=== PATIENT | male | born 1940 | race Caucasian/White ===

== ENCOUNTER 2018-05-14 19:20 | Emergency (ER) | payer OTHER ==
--- NOTE | 2018-05-14 19:28 | ER ---
Nurse's Notes [facility] Name: Otto Murguia Age: 77 yrs Sex: Male : 1940 Arrival Date: 05/14/2018 Time: 19:19 Bed 27 Private MD: Diagnosis: Nondisplaced fracture of triquetrum [cuneiform] bone, left wrist Presentation: 05/14 19:20 Presenting complaint: EMS states: pt fell yesterday and went to urgent care, possible tl3 fx to left wrist, when provider examined pt and put pressure on the injury, pt got nauseated and dizzy so they sent him here. Transition of care: urgent care. Onset of symptoms was May 13, 2018 at 15:00. Risk Assessment: Do you want to hurt yourself or someone else? Patient reports no desire to harm self or others. Initial Sepsis Screen: Does the patient meet any 2 criteria? No. Patient's initial sepsis screen is negative. Does the patient have a suspected source of infection? No. Patient's initial sepsis screen is negative. Care prior to arrival: None. 19:20 Method Of Arrival: EMS: [facility] tl3 19:20 Acuity: GARRETT 4 tl3 Triage Assessment: 19:24 General: Appears in no apparent distress. slender, well groomed, well developed, well tl3 nourished, Behavior is calm, cooperative, appropriate for age. Pain: Complains of pain in lateral aspect of left wrist and medial aspect of left wrist. EENT: No signs and/or symptoms were reported regarding the EENT system. Neuro: No deficits noted. Level of Consciousness is awake, alert, obeys commands, Oriented to person, place, time, situation, Appropriate for age. Cardiovascular: Patient's skin is warm and dry. Respiratory: Airway is patent Respiratory effort is even, unlabored, Respiratory pattern is regular, symmetrical. GI: No signs and/or symptoms were reported involving the gastrointestinal system. : No signs and/or symptoms were reported regarding the genitourinary system. Derm: No signs and/or symptoms reported regarding the dermatologic system. Musculoskeletal: Reports pain in lateral aspect of left wrist and medial aspect of left wrist since yesterday. Historical: - Allergies: 19:24 Codeine; tl3 - PMHx: 19:24 Glaucoma; tl3 - PSHx: 19:24 right wrist; Hernia repair; tl3 - Immunization history:: Adult Immunizations up to date. - Social history:: Smoking status: Patient/guardian denies using tobacco, never smoked. - Family history:: not pertinent. - Ebola Screening: : No symptoms or risks identified at this time. - Hospitalizations: : No recent hospitalization is reported. Screenin:27 Abuse screen: Denies threats or abuse. Nutritional screening: No deficits noted. tl3 Tuberculosis screening: No symptoms or risk factors identified. Fall Risk None identified. Assessment: 19:27 Reassessment: No changes from previously documented assessment. tl3 20:12 Reassessment: Patient appears in no apparent distress at this time. No changes from tl3 previously documented assessment. Patient and/or family updated on plan of care and expected duration. Pain level reassessed. Patient is alert, oriented x 3, equal unlabored respirations, skin warm/dry/pink. Vital Signs: 19:24 BP 156 / 123; Pulse 56; Resp 18; Temp 98.6(O); Pulse Ox 100% ; tl3 20:12 BP 145 / 63; Pulse 52; Resp 18; Pulse Ox 99% on R/A; tl3 ED Course: 19:19 Patient arrived in ED. tl3 19:21 Brian Kumar MD is Attending Physician. rn 19:24 Triage completed. tl3 19:24 Arm band placed on right wrist. tl3 19:27 Felton Lorenzo MD is Referral Physician. rn 19:27 Patient has correct armband on for positive identification. Pulse ox on. NIBP on. Warm tl3 blanket given. 19:27 No provider procedures requiring assistance completed. Patient did not have IV access tl3 during this emergency room visit. 19:28 Suzanne Avila, JESSICA is Primary Nurse. tl3 20:12 Orthoglass splint: Volar splint applied on left arm. tl3 Administered Medications: No medications were administered Outcome: 19:28 Discharge ordered by . rn 20:12 Discharged to home ambulatory. tl3 20:12 Condition: stable 20:12 Discharge instructions given to patient, family, Instructed on discharge instructions, follow up and referral plans. Demonstrated understanding of instructions, follow-up care, splint care. 20:14 Patient left the ED. tl3 Signatures: Brian Kumar MD MD rn Lowrey, Tammy, RN RN tl3
--- NOTE | 2018-05-14 19:29 | EDPHYS ---
Physician Documentation [facility] Name: Otto Murguia Age: 77 yrs Sex: Male : 1940 Arrival Date: 05/14/2018 Time: 19:19 Bed 27 Private MD: ED Physician Brian Kumar HPI: 05/14 19:21 This 77 yrs old Male presents to ER via Unassigned with complaints of Wrist rn Pain. 19:21 The patient or guardian reports injury, pain. The complaints affect the left wrist rn diffusely. Onset: The symptoms/episode began/occurred this morning. Modifying factors: The symptoms are alleviated by nothing, the symptoms are aggravated by movement. The patient has not experienced similar symptoms in the past. Reports going up steps this morning, tripped, fell forward with outstretched hand, didn't hurt too bad but worse as day went on, went to urgent care, and when pushing on wrist complained of nausea and dizziness, so urgent care called 911, stable vitals, patient denies symptoms currently other than pain in wrist. Denies preceding chest pain/headache/sob/abd pain prior to fall, states was purely mechanical fall.. Historical: - Allergies: 19:24 Codeine; tl3 - PMHx: 19:24 Glaucoma; tl3 - PSHx: 19:24 right wrist; Hernia repair; tl3 - Immunization history:: Adult Immunizations up to date. - Social history:: Smoking status: Patient/guardian denies using tobacco, never smoked. - Family history:: not pertinent. - Ebola Screening: : No symptoms or risks identified at this time. - Hospitalizations: : No recent hospitalization is reported. ROS: 19:21 Constitutional: Negative for fever, chills, and weight loss, Neck: Negative for injury, rn pain, and swelling, Cardiovascular: Negative for chest pain, palpitations, and edema, Respiratory: Negative for shortness of breath, cough, wheezing, and pleuritic chest pain, Abdomen/GI: Negative for abdominal pain, nausea, vomiting, diarrhea, and constipation, Back: Negative for injury and pain, MS/Extremity: + left wrist pain Skin: Negative for injury, rash, and discoloration, Neuro: Negative for headache, weakness, numbness, tingling, and seizure. Exam: 19:21 Constitutional: This is a well developed, well nourished patient who is awake, alert, rn and in no acute distress. Head/Face: Normocephalic, atraumatic. Neck: Trachea midline. Supple, full range of motion without nuchal rigidity, or vertebral point tenderness. Chest/axilla: Normal chest wall appearance and motion. Nontender with no deformity. Back: No spinal tenderness. No costovertebral tenderness. Full range of motion. MS/ Extremity: Pulses equal, no cyanosis. Neurovascular intact. Painful ROM left wrist with mild swelling, no deformity. Neuro: Awake and alert, GCS 15, oriented to person, place, time, and situation. Cranial nerves II-XII grossly intact. Motor strength 5/5 in all extremities. Sensory grossly intact. Cerebellar exam normal. Normal gait. Vital Signs: 19:24 BP 156 / 123; Pulse 56; Resp 18; Temp 98.6(O); Pulse Ox 100% ; tl3 20:12 BP 145 / 63; Pulse 52; Resp 18; Pulse Ox 99% on R/A; tl3 MDM: 19:21 Patient medically screened. rn 19:21 Differential diagnosis: closed fracture, contusion. Data reviewed: vital signs, nurses rn notes, radiologic studies, plain films, and as a result, I will discharge patient. ED course: Pt comes with imaging from urgent care, read from radiology and images show possible triquetral fracture, will splint and dc home with ortho f/u as patient is asymptomatic. . 05/14 19:21 Order name: Splint - Volar Wrist Splint; Complete Time: 19:47 rn Administered Medications: No medications were administered Disposition: 05/14/18 19:28 Discharged to Home. Impression: Nondisplaced fracture of triquetrum [cuneiform] bone, left wrist. - Condition is Stable. - Discharge Instructions: Wrist Fracture Treated With Immobilization. - Medication Reconciliation Form, Thank You Letter, Antibiotic Education, Prescription Opioid Use form. - Follow up: Felton Lorenzo MD; When: 2 - 3 days; Reason: Recheck today's complaints, Re-evaluation by your physician. - Problem is new. - Symptoms have improved. Signatures: Brian Kumar MD MD rn Lowrey, Tammy, RN RN tl3 Corrections: (The following items were deleted from the chart) 20:14 19:28 05/14/2018 19:28 Discharged to Home. Impression: Nondisplaced fracture of tl3 triquetrum [cuneiform] bone, left wrist. Condition is Stable. Forms are Medication Reconciliation Form, Thank You Letter, Antibiotic Education, Prescription Opioid Use. Follow up: Dr. Felton Lorenzo; When: 2 - 3 days; Reason: Recheck today's complaints, Re-evaluation by your physician. Problem is new. Symptoms have improved. rn
== END 2018-05-14 20:14 | disposition home or self-care (01) ==
LOC: ER 19:20
DX: S62.115A Nondisplaced fracture of triquetrum [cuneiform] bone, left wrist, initial encounter for closed fracture (principal); W10.9XXA Fall (on) (from) unspecified stairs and steps, initial encounter; Y93.89 Activity, other specified; Y92.9 Unspecified place or not applicable; Z88.5 Allergy status to narcotic agent
CPT/HCPCS: 99283

== ENCOUNTER 2021-02-13 13:21 | Inpatient (IN) | payer OTHER ==
--- OUTSIDE RECORDS SUMMARY | 2021-02-13 13:23 | XMS REPORT | Continuity of Care Document ---
:1940 Author Organization [facility] t Address [address] [place] [address] Dr. Jacobsen [address] [place] [id number] Care Team Providers Name Role Phone Unavailable Unavailable Unavailable Problems This patient has no known problems. Allergies, Adverse Reactions, Alerts This patient has no known allergies or adverse reactions. Medications This patient has no known medications. Procedures This patient has no known procedures. Results This patient has no known results.
--- NOTE | 2021-02-13 14:16 | RAD REPORT ---
EXAM DESCRIPTION: RAD - Chest Pa And Lat (2 Views) - 02/13/2021 2:05 pm CLINICAL HISTORY: covid +;Cough Chest pain. COMPARISON: Chest Pa And Lat (2 Views) dated 05/02/2020; Chest Pa And Lat (2 Views) dated 12/15/2018; Chest Pa And Lat (2 Views) dated 08/15/2017; Chest Single View dated 03/03/2017 FINDINGS: Mild interstitial lung opacities are present greatest in both lower lobes most compatible with viral infection/ bronchitis. The heart is normal in size. No displaced fractures.
[2021-02-13 15:46] LABS: Protime INR 1.11
[2021-02-13 15:55] LABS: Absolute Lymphocytes (CBC) 0.6 K/uL (0.7-4.9); Basophils % 0.1 % (0-1.3); Hematocrit 41.1 % (39.6-49.0); Lymphocytes % 7.2 % (15.3-44.8); MPV 8.6 fL (7.6-11.3); RBC Red Blood Cell Count 4.73 M/uL (4.33-5.43)
[2021-02-13 16:06] LABS: Urine Blood Trace-lysed (Negative); Urine Glucose Negative (Negative); Urine Protein Negative (Negative); Urine Specific Gravity 1.015 (1.005-1.030)
[2021-02-13 16:24] LABS: Arterial Blood Carboxyhemoglob 1.2 % (0-1.5); Blood O2 Saturation 89.9 % (92-98.5)
--- NOTE | 2021-02-13 17:09 | ER ---
Nurse's Notes [facility] Name: Otto Murguia Age: 80 yrs Sex: Male : 1940 Arrival Date: 02/13/2021 Time: 13:28 Bed 23 Private MD: Diagnosis: Hypoxemia;Pneumonia due to SARS-associated coronavirus;Weakness;Syncope Near;Bradycardia, unspecified;Dementia in other diseases classified elsewhere without behavioral disturbance Presentation: 02/13 13:41 Chief complaint: Patient states: COVID + a week ago. SOB is getting worse. is ss concerned because his oxygen had been in the 80's at home. Coronavirus screen: Client presents with at least one sign or symptom that may indicate coronavirus-19. Ebola Screen: Patient denies exposure to infectious person. Patient denies travel to an Ebola-affected area in the 21 days before illness onset. Initial Sepsis Screen: Does the patient meet any 2 criteria? No. Patient's initial sepsis screen is negative. Does the patient have a suspected source of infection? No. Patient's initial sepsis screen is negative. Risk Assessment: Do you want to hurt yourself or someone else? Patient reports no desire to harm self or others. Onset of symptoms was February 06, 2021. 13:41 Method Of Arrival: Ambulatory ss 13:41 Acuity: GARRETT 2 ss Triage Assessment: 02/14 14:45 General: Appears. ch5 16:54 General: Behavior is calm, cooperative. Respiratory: Reports shortness of breath on ch5 exertion. Historical: - Allergies: 02/13 13:42 Codeine; ss 13:42 PENICILLINS; ss - PMHx: 13:42 Glaucoma; ss 13:42 Dementia; ss - Immunization history:: Client reports receiving the To \\T\\ To single-dose vaccine. - Social history:: Smoking status: Patient denies any tobacco usage or history of. Screenin:33 Abuse screen: Denies threats or abuse. Denies injuries from another. Nutritional kg screening: No deficits noted. Tuberculosis screening: No symptoms or risk factors identified. Fall Risk None identified. Assessment: 16:09 Respiratory: Airway is patent Respiratory effort is even, unlabored, relaxed. kg 16:10 Reassessment: Updated his on status. Will continue to monitor. . kg 18:20 Reassessment: Pt stood at bedside to urinate. O2 Sat decreased to 83% on 2 L NC. Denies ch5 dizziness. Once in bed O2 recovered to 90% on 2 L NC. Pain: Denies pain. 18:36 Cardiovascular: Denies chest pain, lightheadedness. Respiratory: Corace with cough. ch5 20:19 Neuro: No deficits noted. Cardiovascular: No deficits noted. GI: No deficits noted. : kg No deficits noted. EENT: No deficits noted. Derm: No deficits noted. 02/14 16:51 Cardiovascular: Rhythm is sinus rhythm. ch5 20:33 General: Appears uncomfortable, malnourished, Behavior is calm, cooperative. Pain:. sh9 Neuro: Level of Consciousness is alert, Oriented to person, place, situation, Weakness. Vital Signs: 02/13 13:42 BP 116 / 68; Pulse 64; Resp 24; Temp 97.8(TE); Pulse Ox 93% on R/A; Weight 72.57 kg; ss 16:41 BP 142 / 56; Pulse 66; Resp 20; Pulse Ox 94% on R/A; Pain 0/10; ch5 18:18 BP 165 / 58; Pulse 78; Resp 24; Pulse Ox 90% on 2 lpm NC; Pain 0/10; ch5 02/14 16:55 BP 144 / 61; Pulse 60; Resp 20; Pulse Ox 99% on 2 lpm NC; Pain 0/10; ch5 20:32 BP 105 / 43; Pulse 98; Resp 22; Temp 95.8; Pulse Ox 96% on 2 lpm NC; sh9 ED Course: 02/13 13:28 Patient arrived in ED. cl3 13:42 Triage completed. ss 13:42 Arm band placed on right wrist. ss 14:05 Chest Pa And Lat (2 Views) In Process Unspecified. EDMS 14:59 Miguelangel Gorman MD is Attending Physician. mariluz 15:10 Inserted saline lock: 20 gauge in left wrist, using aseptic technique. ,using aseptic kg technique. BY Prashant LOPEZ Blood collected. 15:15 Juanita Vizcaino, JESSICA is Primary Nurse. kg 15:15 Basic Metabolic Panel Sent. kg 15:33 Patient has correct armband on for positive identification. kg 15:37 Ferritin Sent. kg 15:37 CRP Sent. kg 15:38 Basic Metabolic Panel Sent. kg 15:38 CBC with Diff Sent. kg 15:38 LFT's Sent. kg 15:38 Magnesium Sent. kg 15:38 NT PRO-BNP Sent. kg 15:38 PT-INR Sent. kg 15:38 Troponin (emerg Dept Use Only) Sent. kg 17:07 Mitchell Hall MD is Hospitalizing Provider. mariluz 17:11 Blood Culture Adult (2) Sent. ch5 17:13 CT Head Brain wo Cont Sent. ch5 17:18 CT Head Brain wo Cont In Process Unspecified. EDMS 17:20 CT Chest For PE Angio In Process Unspecified. EDMS 18:36 Report given to Juanita. 5 19:06 COVID-19 : Document "Date of Symptom Onset" if Symptomatic. Sent. kg 02/14 16:50 CORONAVIRUS Sent. ch5 16:52 No provider procedures requiring assistance completed. 5 Administered Medications: 02/13 17:06 CANCELLED (Duplicate Order): Lovenox (enoxaparin) 1 mg/kg Sub-Q once mariluz 17:20 Drug: Zithromax (azithromycin) 500 mg Route: PO; 5 19:07 Follow up: Response: No adverse reaction kg 17:27 Drug: Aspirin Chewable Tablet 162 mg Route: PO; 5 19:07 Follow up: Response: No adverse reaction kg 17:30 Drug: SOLU-Medrol (methylPrednisoLONE) 125 mg Route: IVP; Site: right wrist; 5 19:06 Follow up: Response: No adverse reaction kg 17:30 Drug: Albuterol HFA Inhaler 4 puffs Route: Inhalation; 5 17:36 Drug: Rocephin (cefTRIAXone) 1 grams Route: IV; Rate: per protocol; Site: left wrist; 5 17:45 Follow up: IV Status: Completed infusion; IV Intake: 10ml kg 17:40 Drug: Pepcid (famotidine) 20 mg Route: IVP; Site: left wrist; [facility] 19:08 Follow up: Response: No adverse reaction kg 18:10 Drug: Lovenox (enoxaparin) 1 mg/kg {Note: 72mg given in back of R upper arm.} Route: ch5 Sub-Q; Site: left upper arm; 19:06 Follow up: Response: No adverse reaction kg 18:10 Drug: Lovenox (enoxaparin) 1 mg/kg {Note: Given in R upper arm not L.} Route: Sub-Q; ch5 Site: right upper arm; Intake: 17:45 IV: 10ml; Total: 10ml. kg Outcome: 17:08 Decision to Hospitalize by Provider. mariluz 02/15 08:24 Patient left the ED. iw Signatures: Dispatcher [employer] EDMiguelangel Bradford MD MD cha Williams, Irene, RN RN Summer Ragland RN RN Delia Steel cl3 Juanita Vizcaino RN RN kg Carlene Argueta RN RN sh9 Prashant Franco RN RN ch5 Corrections: (The following items were deleted from the chart) 02/13 18:38 18:20 Cardiovascular: Denies chest pain, lightheadedness, Rhythm is ch5 ch5
--- NOTE | 2021-02-13 17:09 | EDPHYS ---
Physician Documentation [facility] Name: Otto Murguia Age: 80 yrs Sex: Male : 1940 Arrival Date: 02/13/2021 Time: 13:28 Bed 23 Private MD: ED Physician Miguelangel Gorman HPI: 02/13 17:00 This 80 yrs old Male presents to ER via Ambulatory with complaints of mariluz Shortness Of Breath, Covid +. 17:00 The patient has shortness of breath at rest, with light activity. Onset: The mariluz symptoms/episode began/occurred 3 day(s) ago. Duration: The symptoms are continuous, and are steadily getting worse. The patient's shortness of breath is aggravated by coughing, supine position, is alleviated by rest, sitting up, application of supplemental oxygen. Associated signs and symptoms: Pertinent positives: non-productive cough, dizziness. Severity of symptoms: in the emergency department the symptoms have resolved and did so just prior to arrival. The patient has not experienced similar symptoms in the past, but friend has similar symptoms. Historical: - Allergies: 13:42 Codeine; ss 13:42 PENICILLINS; ss - PMHx: 13:42 Glaucoma; ss 13:42 Dementia; ss - Immunization history:: Client reports receiving the To \\T\\ To single-dose vaccine. - Social history:: Smoking status: Patient denies any tobacco usage or history of. ROS: 17:01 Eyes: Negative for injury, pain, redness, and discharge, ENT: Negative for injury, mariluz pain, and discharge, Neck: Negative for injury, pain, and swelling, Cardiovascular: Negative for chest pain, palpitations, and edema, Abdomen/GI: Negative for abdominal pain, nausea, vomiting, diarrhea, and constipation, Back: Negative for injury and pain, : Negative for injury, bleeding, discharge, and swelling, MS/Extremity: Negative for injury and deformity, Skin: Negative for injury, rash, and discoloration, Psych: Negative for depression, anxiety, suicide ideation, homicidal ideation, and hallucinations, Allergy/Immunology: Negative for hives, rash, and allergies, Endocrine: Negative for neck swelling, polydipsia, polyuria, polyphagia, and marked weight changes, Hematologic/Lymphatic: Negative for swollen nodes, abnormal bleeding, and unusual bruising. 17:01 Constitutional: Positive for body aches, chills, fatigue, malaise. 17:01 Respiratory: Positive for cough, shortness of breath, at rest. 17:01 Neuro: Positive for syncope, weakness. Exam: 17:01 Constitutional: This is a well developed, well nourished patient who is awake, alert, mariluz and in no acute distress. Head/Face: Normocephalic, atraumatic. Eyes: Pupils equal round and reactive to light, extra-ocular motions intact. Lids and lashes normal. Conjunctiva and sclera are non-icteric and not injected. Cornea within normal limits. Periorbital areas with no swelling, redness, or edema. ENT: Nares patent. No nasal discharge, no septal abnormalities noted. Tympanic membranes are normal and external auditory canals are clear. Oropharynx with no redness, swelling, or masses, exudates, or evidence of obstruction, uvula midline. Mucous membranes moist. Neck: Trachea midline, no thyromegaly or masses palpated, and no cervical lymphadenopathy. Supple, full range of motion without nuchal rigidity, or vertebral point tenderness. No Meningismus. Chest/axilla: Normal chest wall appearance and motion. Nontender with no deformity. No lesions are appreciated. Cardiovascular: Regular rate and rhythm with a normal S1 and S2. No gallops, murmurs, or rubs. Normal PMI, no JVD. No pulse deficits. Abdomen/GI: Soft, non-tender, with normal bowel sounds. No distension or tympany. No guarding or rebound. No evidence of tenderness throughout. Back: No spinal tenderness. No costovertebral tenderness. Full range of motion. Male : Normal genitalia with no discharge or lesions. Skin: Warm, dry with normal turgor. Normal color with no rashes, no lesions, and no evidence of cellulitis. MS/ Extremity: Pulses equal, no cyanosis. Neurovascular intact. Full, normal range of motion. Psych: Awake, alert, with orientation to person, place and time. Behavior, mood, and affect are within normal limits. 17:01 ECG was reviewed by the Attending Physician. 17:01 Respiratory: mild respiratory distress is noted, Breath sounds: decreased breath sounds, that are mild, that are moderate, are heard in the left posterior lower lobe, right posterior middle lobe and right posterior lower lobe, Respiratory rate: 66 Vital Signs: 13:42 BP 116 / 68; Pulse 64; Resp 24; Temp 97.8(TE); Pulse Ox 93% on R/A; Weight 72.57 kg; ss 16:41 BP 142 / 56; Pulse 66; Resp 20; Pulse Ox 94% on R/A; Pain 0/10; ch5 18:18 BP 165 / 58; Pulse 78; Resp 24; Pulse Ox 90% on 2 lpm NC; Pain 0/10; ch5 02/14 16:55 BP 144 / 61; Pulse 60; Resp 20; Pulse Ox 99% on 2 lpm NC; Pain 0/10; ch5 20:32 BP 105 / 43; Pulse 98; Resp 22; Temp 95.8; Pulse Ox 96% on 2 lpm NC; sh9 MDM: 02/13 14:59 Patient medically screened. [facility] 17:03 Differential diagnosis: asthma, Bronchitis CHF exacerbation, pneumonia, pulmonary mariluz edema, reactive airway disease, Sepsis. Antibiotic administration: Rocephin and Zithromax given. Differential Diagnosis sepsis, flu. Differential Diagnosis: cardiac arrhythmia, idiopathic syncope, vasovagal episode. The patient's Wells Deep Vein Thrombosis Score was calculated as follows: Total Score: 0-2 Pts- Low Risk. The patient's pulmonary embolism risk score was calculated as follows: Total Score: 0-2 points. This patient was found to be at low risk for a pulmonary embolism by using the Well's assessment criteria. Immunization status: Pneumococcal vaccine: Influenza vaccine: Data reviewed: vital signs, nurses notes, lab test result(s), EKG, radiologic studies, CT scan, plain films. Data interpreted: vehicle monitor technician: rate is 66 beats/min, rhythm is regular. Test interpretation: by ED physician or midlevel provider: ECG, plain radiologic studies. Counseling: I had a detailed discussion with the patient and/or guardian regarding: the historical points, exam findings, and any diagnostic results supporting the discharge/admit diagnosis, lab results, the need for further work-up and treatment in the hospital. 02/13 15:03 Order name: Basic Metabolic Panel [facility] 02/13 15: Order name: CBC with Diff; Complete Time: 16:55 [facility] 02/13 15:03 Order name: LFT's [facility] 02/13 15: Order name: Magnesium [facility] 02/13 15: Order name: NT PRO-BNP [facility] 02/13 15:03 Order name: PT-INR; Complete Time: 16:55 [facility] 02/13 15:03 Order name: Troponin (emerg Dept Use Only) [facility] 02/13 15:04 Order name: Blood Culture Adult (2) [facility] 02/13 15:04 Order name: CRP [facility] 02/13 15:04 Order name: Ferritin [facility] 02/13 15:04 Order name: Basic Metabolic Panel [facility] 02/13 15:18 Order name: ABG: on ra [facility] 02/13 16:06 Order name: Urine Dipstick-Ancillary; Complete Time: 16:55 [facility] 02/13 18:45 Order name: COVID-19 : Document "Date of Symptom Onset" if Symptomatic. 02/13 14:04 Order name: Chest Pa And Lat (2 Views); Complete Time: 16:55 [facility] 02/13 15:04 Order name: CT Chest For PE Angio [facility] 02/13 17:06 Order name: CT Head Brain wo Cont [facility] 02/13 19:12 Order name: CORONAVIRUS [facility] 02/13 20:11 Order name: SARS-COV-2 RT PCR [facility] 02/14 00:39 Order name: Troponin I [facility] 02/14 03:01 Order name: CBC with Automated Diff [facility] 02/14 03:02 Order name: Troponin I [facility] 02/14 03:03 Order name: Basic Metabolic Panel [facility] 02/14 03:03 Order name: NT PRO-BNP [facility] 02/14 03:37 Order name: Manual Differential [facility] 02/14 03:49 Order name: CREATININE WHOLE BLOOD [facility] 02/15 04:46 Order name: C-Reactive Protein [facility] 02/15 08:08 Order name: Glucose, Ancillary Testing [facility] 02/13 15:03 Order name: EKG; Complete Time: 15:04 [facility] 02/13 15:04 Order name: Cardiac monitoring; Complete Time: 15:15 [facility] 02/13 15:04 Order name: EKG - Nurse/Tech; Complete Time: 15:15 [facility] 02/13 15:04 Order name: IV Saline Lock; Complete Time: 15:15 [facility] 02/13 15:04 Order name: Labs collected and sent; Complete Time: 15:15 [facility] 02/13 15:04 Order name: O2 Per Protocol; Complete Time: 15:15 [facility] 02/13 15:04 Order name: O2 Sat Monitoring; Complete Time: 15:15 [facility] 02/13 15:04 Order name: Urine Dipstick-Ancillary (obtain specimen); Complete Time: 15:48 [facility] 02/13 17:18 Order name: CONS Physician Consult; Complete Time: 16:51 EDMS EC:01 Rate is 59 beats/min. Rhythm is regular. QRS [place] is Normal. [place] interval is normal. QRS mariluz interval is normal. QT interval is normal. No Q waves. T waves are Normal. No ST changes noted. Clinical impression: Sinus bradycardia. Interpreted by me. Reviewed by me. Administered Medications: 17:06 CANCELLED (Duplicate Order): Lovenox (enoxaparin) 1 mg/kg Sub-Q once mariluz 17:20 Drug: Zithromax (azithromycin) 500 mg Route: PO; 5 19:07 Follow up: Response: No adverse reaction kg 17:27 Drug: Aspirin Chewable Tablet 162 mg Route: PO; ch5 19:07 Follow up: Response: No adverse reaction kg 17:30 Drug: SOLU-Medrol (methylPrednisoLONE) 125 mg Route: IVP; Site: right wrist; 5 19:06 Follow up: Response: No adverse reaction kg 17:30 Drug: Albuterol HFA Inhaler 4 puffs Route: Inhalation; ch5 17:36 Drug: Rocephin (cefTRIAXone) 1 grams Route: IV; Rate: per protocol; Site: left wrist; ch5 17:45 Follow up: IV Status: Completed infusion; IV Intake: 10ml kg 17:40 Drug: Pepcid (famotidine) 20 mg Route: IVP; Site: left wrist; 5 19:08 Follow up: Response: No adverse reaction kg 18:10 Drug: Lovenox (enoxaparin) 1 mg/kg {Note: 72mg given in back of R upper arm.} Route: ch5 Sub-Q; Site: left upper arm; 19:06 Follow up: Response: No adverse reaction kg 18:10 Drug: Lovenox (enoxaparin) 1 mg/kg {Note: Given in R upper arm not L.} Route: Sub-Q; ch5 Site: right upper arm; Disposition Summary: 02/13/21 17:08 Hospitalization Ordered Hospitalization Status: Inpatient Admission mariluz Provider: Mitchell Hall mariluz Condition: Stable mariluz Problem: new mariluz Symptoms: have improved mariluz Bed/Room Type: Standard mariluz Location: Telemetry/MedSurg (Inpatient)(02/15/21 06:37) tl1 Room Assignment: 426(02/15/21 06:37) tl1 Diagnosis - Hypoxemia mariluz - Pneumonia due to SARS-associated coronavirus mariluz - Weakness mariluz - Syncope Near mariluz - Bradycardia, unspecified mariluz - Dementia in other diseases classified elsewhere without behavioral disturbance mariluz Forms: - Medication Reconciliation Form mariluz - SBAR form mariluz Signatures: Dispatcher [employer] EDMS Miguelangel Gorman MD MD cha Smirch, Shelby, RN RN ss Kell Frias RN RN tl1 Prashant Franco RN RN ch5 Juanita Vizcaino RN kg Corrections: (The following items were deleted from the chart) 14:04 13:44 Chest Single View+RAD.RAD.BRZ ordered. EDMS EDMS 17:06 17:00 Lovenox (enoxaparin) 1 mg/kg Sub-Q once ordered. mariluz mariluz 19:41 17:08 Telemetry/MedSurg (Inpatient) mariluz tl1 19:41 17:08 mariluz tl1 02/15 06:37 02/13 19:41 BR ER HOLD tl1 tl1 02/15 06:37 02/13 19:41 ERHOLD- tl1 tl1
--- NOTE | 2021-02-13 17:30 | RAD REPORT ---
EXAM DESCRIPTION: CT - Head Brain Wo Cont - 02/13/2021 5:18 pm CLINICAL HISTORY: SYNCOPE Headache, drowsiness COMPARISON: MAXILLOFACIAL W O CONTRAST dated 05/08/2009; HEAD BRAIN W O CONTRAST dated 05/08/2009 TECHNIQUE: All CT scans are performed using dose optimization technique as appropriate and may inclu de automated exposure control or mA/KV adjustment according to patient size. FINDINGS: No intracranial hemorrhage, hydrocephalus or extra-axial fluid collection.Moderate general ized brain atrophy is present with mild periventricular and deep white matter chronic microvascular i schemic changes.No areas of brain edema or evidence of midline shift. The paranasal sinuses and mastoids are clear. The calvarium is intact. IMPRESSION: No acute intracranial abnormality.
--- NOTE | 2021-02-13 17:36 | RAD REPORT ---
EXAM DESCRIPTION: CT - Chest For Pe Angio - 02/13/2021 5:20 pm CLINICAL HISTORY: Chest pain. Chest pain;Dyspnea COMPARISON: Chest For Pe Angio dated 03/03/2017 TECHNIQUE: CT angiogram of the pulmonary arteries was performed with MIP. All CT scans are performed using dose optimization technique as appropriate and may include automated exposure control or mA/KV adjustment according to patient size. FINDINGS: No evidence of pulmonary thromboembolism. No acute aortic finding demonstrated. Moderate irregular plaquing is seen along the descending thorac ic aorta laterally. There is quite extensive bilateral pulmonary opacities present predominately ground-glass pancreatiti s in the periphery of both lungs both lower lobes. Air cyst is seen along the left medial lung base measuring 4 cm containing some trace amount of fluid . Curvilinear air cyst is present in the medial right lung base as well measuring 25 mm. No significant pericardial or pleural fluid. No concerning bony finding. IMPRESSION: No evidence of pulmonary thromboembolism. Extensive ground-glass lung opacities are present bilaterally most likely representing COVID-19 infec tion.
[2021-02-13] MEDS ORDERED: ASPIRIN EC 81 MG TAB PO ONE (17:47)
[2021-02-13] MEDS ORDERED: METHYLPREDNISOLONE 125 MG INJ ONE (17:47)
[2021-02-13] MEDS ORDERED: FAMOTIDINE 20 MG/2 ML VIAL IV ONE (17:48)
[2021-02-13] MEDS ORDERED: CEFTRIAXONE 1000 MG/VIAL ONE (17:48)
[2021-02-13] MEDS ORDERED: ALBUTEROL INHALER 60 PUFF/8 GM IH ONE (17:49)
[2021-02-13] MEDS ORDERED: AZITHROMYCIN 250 MG TAB ONE (17:55)
[2021-02-13 18:20] LABS: ALT/SGPT 28 U/L (12-78); AST/SGOT 30 U/L (15-37); Albumin 2.4 g/dL (3.4-5.0); Alkaline Phosphatase 50 U/L (45-117); BUN Blood Urea Nitrogen 14 mg/dL (7-18); Bicarbonate 27 mmol/L (21-32); Bilirubin Direct 0.2 mg/dL (0-0.2); Bilirubin Total 0.4 mg/dL (0.2-1.0); Ferritin 605.2 ng/mL (26-388); Glucose Level 112 mg/dL (74-106); Magnesium 2.2 mg/dL (1.8-2.4); NT PRO-BNP 320 pg/mL (<450); Protein, Total 6.5 g/dL (6.4-8.2); Sodium Level 133 mmol/L (136-145); Troponin (Emerg Dept Use Only) < 0.02 ng/mL (0.0-0.045)
[2021-02-13] MEDS ORDERED: ENOXAPARIN 80 MG/0.8 ML SQ ONE (18:27)
[2021-02-13 23:35] VITALS: BMI 23.6
[2021-02-13] MEDS ORDERED: CEFTRIAXONE 1 GM/NS 50 ML 1 GM/50 ML BAG IV SCH (23:39)
[2021-02-13] MEDS ORDERED: ALBUTEROL 2.5 MG/3 ML NEB SOL NEB PRN (23:39)
[2021-02-13] MEDS ORDERED: IPRATROPIUM BROM 0.5MG/2.5ML NEB PRN (23:39)
[2021-02-14] MEDS ORDERED: METHYLPREDNISOLONE 125 MG INJ IV SCH
[2021-02-14 02:58] LABS: Absolute Lymphocytes (CBC) 0.2 K/uL (0.7-4.9); Basophils % 0.2 % (0-1.3); Hematocrit 36.7 % (39.6-49.0); Lymphocytes % 3.4 % (15.3-44.8); MPV 8.6 fL (7.6-11.3); RBC Red Blood Cell Count 4.23 M/uL (4.33-5.43)
[2021-02-14 03:03] LABS: Potassium 4.2 mmol/L (3.5-5.1)
[2021-02-14 03:37] LABS: Blood Morphology Comment NOT SEEN (NOT SEEN); Platelet Estimate ADEQ
[2021-02-14] MEDS ORDERED: METHYLPREDNISOLONE 40 MG INJ ONE ×3 (07:16→21:47)
--- NOTE | 2021-02-14 08:56 | HP ---
Date of Admission: 02/13/2021 Chief Complaint: Cough, shortness of breath, fainting type of feeling. History Of Present Illness: This is a 80-year-old male patient who [facility] week on 02/07/2021, along with his with 2 days history of both and having cough, congestion, headache, body ache, fever, and diarrhea type of symptoms. They both were diagnosed as having COVID- 19 infection and both were given methylprednisolone, Zithromax, and cough medication. The patient also went to [facility] and had monoclonal antibody treatment after he got diagnosed. He completed all his medications as prescribed and today he was brought into the emergency room with these complaints of fainting type of feeling, cough, congestion, shortness of breath. He is not coughing up any mucus. After he was evaluated in the ER with COVID-19 pneumonia. I saw him in the emergency room and I also communicated with his who is also a patient today in the emergency room. Review of Systems: Constitutional: Generalized weakness. Respiratory: As mentioned above. All other systems reviewed and negative. Allergies: TO SULFA CAUSING CHILLS AND TERRAMYCIN CAUSING RASH. Medications: 1. Aspirin 81 mg daily. 2. Atorvastatin 20 mg p.o. daily at bedtime. 3. Lumigan eye drops. 4. Donepezil 10 mg daily. 5. Lisinopril 10 mg by mouth 2 times a day. 6. Memantine 10 mg 2 times a day. 7. Metoprolol succinate 25 mg daily in the morning. 8. Requip 0.25 mg daily at bedtime. Past Surgical History: Cataract surgery, appendectomy, arthroscopic knee surgery, and surgery for wrist fracture. Past Medical History: Significant for Alzheimer disease, hypertension, type 2 diabetes mellitus, mixed hyperlipidemia, diverticulosis, benign prostatic hypertrophy, and history of ITP. Family History: Significant for father of stomach cancer, had diabetes heart disease, and hypertension. Mother , had osteoporosis and osteoarthritis. Brother is healthy. Social History: Prior history of smoking, not at present time. Use of alcohol occasional. Physical Examination: Vital Signs: When he came into emergency room, blood pressure 116/68, pulse 64, respiratory rate 24, temperature 97.8, oxygen saturation 93%, weight 72.57 kg. General: Awake, alert, oriented, not in distress. HEENT: Head atraumatic, normocephalic. Conjunctivae nonerythematous. Sclerae white. Mouth, no thrush or edema noted. Ears/Nose, no mass, lesion, discharge noted. Neck: Supple. No JVD, lymph nodes, bruit, thyromegaly noted. Lungs: Some rales present in both lungs. Not using any accessory muscles of respiration. Heart: Normal heart sounds, no murmur or gallop. Abdomen: Soft, bowel sounds normal. No guarding, rigidity, tenderness, mass, hepatosplenomegaly, distention, or bruit noted. Extremities: No leg edema. No calf tenderness. Skin: No rash, ulcer, cellulitis. Lymphatics: No lymph node enlargement in neck, supraclavicular, infraclavicular region. Neuro: No focal neurological deficit. Chest: Unremarkable. External Genitalia: Deferred. Rectal: Deferred. Laboratory Data: White count 7.9, hemoglobin 13.8. INR 1.11. Blood gas; pH 7.46, pCO2 34.1, pO2 59, saturation 99.9. Sodium 133, potassium 4, chloride 102, bicarb 27, BUN 14, creatinine 0.82, glucose 112, ferritin 605. Liver function tests unremarkable. Troponin less than 0.02. CRP 64.3. Urinalysis was unremarkable. CAT scan of the chest was negative for pulmonary embolism, but it showed extensive ground-glass lung opacity in both lungs. Chest x-ray also shows bilateral interstitial lung opacities. CAT scan of the brain was negative for any acute intracranial changes. Impression: 1. COVID-19 infection. 2. COVID-19 pneumonia. 3. Acute respiratory failure with hypoxia. 4. Alzheimer disease. 5. Hypertension. 6. Type 2 diabetes mellitus. 7. Mixed hyperlipidemia. 8. Diverticulosis. 9. Benign prostatic hypertrophy. Plan: We will go ahead and admit the patient to hospital for further evaluation and management of this problem. Patient is appropriate for inpatient and is expected to spend 2 midnights in the hospital. We will go ahead and consult Dr. Wilson from Pulmonary service. We will continue home medications per order, oxygen replacement therapy will be given. We will go ahead and give him IV Solu-Medrol, manage fingerstick blood sugar with sliding scale insulin for diabetes control, and give anticoagulation therapy per order. Details and plan of treatment discussed with the patient and patient's . JANICE/MYRNA Voice ID: [id number] MTDD
[2021-02-14] MEDS ORDERED: AZITHROMYCIN IV 250 MG in NA CHLORIDE 0.9% 250 ML IVPB SCH ×4 (09:00)
[2021-02-14] MEDS ORDERED: CEFTRIAXONE/SWI 1gm 1 GM/10 ML SYR IV SCH (09:00)
[2021-02-14] MEDS: MEMANTINE HCL 10 MG TABLET PO SCH ×2 (09:00→21:00)
[2021-02-14] MEDS: METOPROLOL XL 25 MG TAB PO SCH (09:45)
[2021-02-14] MEDS: FAMOTIDINE 20 MG TAB PO SCH ×2 (11:00→21:00)
[2021-02-14] MEDS: lisinopriL 5 MG TAB PO SCH ×2 (11:00→21:00)
[2021-02-14] MEDS: APIXABAN 5 MG TABLET PO SCH ×2 (11:00→21:00)
[2021-02-14] MEDS: METHYLPREDNISOLONE 125 MG INJ IV SCH ×2 (11:00→17:00)
[2021-02-14] MEDS ORDERED: APIXABAN 5 MG TABLET ONE ×2 (11:39→21:47)
[2021-02-14] MEDS ORDERED: FAMOTIDINE 20 MG TAB ONE ×2 (11:39→21:48)
[2021-02-14] MEDS ORDERED: lisinopriL 5 MG TAB ONE ×2 (11:41→21:49)
--- NOTE | 2021-02-14 13:07 | P.CNS ---
Date of Consult: 02/14/21 Reason for Consult: Respiratory failure from coronavirus Chief Complaint: Shortness of breath History of Present Illness: Patient is 80 years of age with cough congestion headache body fever diarrhea was diagnosed with coronavirus infection treated with methyl prednisone Dosepak Zithromax and cough medication he completed his antibiotic treatment came in feeling worse. With severe pneumonia Allergies codeine Allergy (Verified 03/04/17 00:27) Itching/Hives/Rash Home Medications: Colchicine 0.6 mg PO BID #20 tablet 03/04/17 - Past Medical/Surgical History Diabetic: Yes -: diet controlled diabetes -: glaucoma -: macular degeneration -: minh cataract sx -: R wrist -: skin ca removed from forehead - Social History Smoking Status: Never smoker Alcohol use: Yes CD- Drugs: No Review of Systems General: Weakness Respiratory: Shortness of Breath Physical Examination Temp Pulse Resp BP Pulse Ox 98.8 F 65 20 125/88 96 02/14/21 08:00 02/14/21 11:00 02/14/21 08:00 02/14/21 11:00 02/14/21 04:00 General: Alert, Oriented x3, Cooperative Laboratory Data (last 24 hrs) 02/13/21 15:27: PT 12.8 H, INR 1.11 02/13/21 15:27: WBC 7.90, Hgb 13.8, Hct 41.1, Plt Count 220 02/13/21 00:00: Troponin I < 0.02 - Problems (1) Pneumonia due to coronavirus disease 2019 Current Visit: Yes Status: Acute Plan: Patient is 80 years of age recently diagnosed with coronavirus infection completed antibiotic treatment came in worse he has diffuse bilateral pneumonia labs reviewed CRP elevated CT scan reviewed vital signs are stable continue with steroids for now if his condition deteriorates CRP is more than 75 we will start him on Barcitinib at present is only on 3 L of nasal cannula oxygen with a sat of 97% daily CRPs antibiotics discontinued
[2021-02-14] MEDS: BIMATOPROST OPHTH DROPS/2.5 ML BTL OPTH SCH (21:00)
[2021-02-14] MEDS: ROPINIROLE HCL 0.25 MG TAB PO SCH (21:00)
[2021-02-14] MEDS: DONEPEZIL HCL 5 MG TAB PO SCH (21:00)
[2021-02-14] MEDS ORDERED: METOPROLOL XL 50 MG TAB PO ONE (21:49)
[2021-02-15] MEDS: METHYLPREDNISOLONE 125 MG INJ IV SCH ×3 (01:00→16:47)
[2021-02-15] MEDS ORDERED: D50W 25 GM/50 ML SYRINGE IV PRN (05:04)
[2021-02-15] MEDS ORDERED: GLUCAGON 1 MG/VIAL IM PRN (05:04)
[2021-02-15] MEDS: INSULIN -REGULAR HUMAN 50 UNIT/0.5 ML ML SQ SCH ×4 (07:30→21:00)
--- NOTE | 2021-02-15 07:57 | PN ---
Date of Progress Note: 02/14/2021 Subjective: The patient was seen this morning for followup. His was with him. No new complain ts or problems reported. He remains on nasal cannula oxygen, maintaining adequate oxygenation. Not in any respiratory distress. Objective: Vital Signs: Reviewed. HEENT: Unremarkable. Lungs: Clear to auscultation. Heart: Sounds normal. Abdomen: Soft. Bowel sounds normal. No guarding, rigidity, tenderness, or distention. Extremities: No leg edema. Laboratory Data: White count 5, hemoglobin 12.6, platelets 226. Sodium 135, potassium 4.2 chloride 104, bicarb 27, BUN 15, creatinine 0.95, glucose 312. Impression: 1.COVID-19 infection. 2.COVID-19 pneumonia. 3.Acute respiratory failure with hypoxia. 4.Diabetes mellitus. 5.Hypertension. Plan: We will continue current medication. Continue oxygen replacement therapy, steroids per order. Continue to follow with Dr. Wislon and we will also continue anticoagulation therapy. Details we re discussed with the patient's . We will see him tomorrow for followup. JANICE/MODL Voice ID: [id number] Report ID: [id number]
[2021-02-15] MEDS ORDERED: FAMOTIDINE 20 MG/2 ML VIAL IV SCH (09:00)
[2021-02-15] MEDS: MEMANTINE HCL 10 MG TABLET PO SCH ×2 (09:55→21:05)
[2021-02-15] MEDS: lisinopriL 5 MG TAB PO SCH ×2 (09:55→21:04)
[2021-02-15] MEDS: APIXABAN 5 MG TABLET PO SCH ×2 (09:55→21:05)
[2021-02-15] MEDS: METOPROLOL XL 25 MG TAB PO SCH (09:56)
[2021-02-15] MEDS: FAMOTIDINE 20 MG TAB PO SCH ×2 (11:57→21:04)
--- NOTE | 2021-02-15 16:39 | P.PN ---
Subjective Date of Service: 02/15/21 Chief Complaint: Respiratory failure from coronavirus Subjective: Improving (Patient is improving no new complaints his oxygen requirements have remained stable) Review of Systems General: Weakness Respiratory: Shortness of Breath Physical Examination - Vital Signs Temperature: 97.2 F Blood Pressure: 151/67 Pulse: 55 Respirations: 20 Pulse Ox (%): 90 - Physical Exam General: Alert, Oriented x3, Cooperative Assessment & Plan - Problems (Diagnosis) (1) Pneumonia due to coronavirus disease 2019 Current Visit: Yes Status: Acute Plan: Patient's condition remained stable still remains on nasal cannula oxygen CRP does not qualify her for Barcitinib continue with steroids patient has already had immunotherapy for coronavirus unlikely to benefit from remdesivir
--- NOTE | 2021-02-15 19:31 | PN ---
Date of Progress Note: 02/15/2021 Subjective: The patient was seen this morning for followup, lying in bed, not in distress. Objective: Vital Signs: Reviewed. HEENT: Unremarkable. Lungs: Clear to auscultation. Cardiac: Heart sounds normal. Abdomen: Soft. Bowel sounds normal. No guarding, rigidity, tenderness, or distention. Extremities: No leg edema. Laboratory Data: The patient's CRP was 25.4. Impression: 1.COVID-19 infection. 2.COVID-19 pneumonia. 3.Acute respiratory failure with hypoxia. 4.Alzheimer's disease. 5.Hypertension. 6.Type 2 diabetes mellitus. Plan: The patient was on 2-3 L nasal cannula oxygen. Will continue that. We will consult Social Se rvice to help make arrangements for home oxygen as the patient is expected to go home with oxygen use at home. Continue current IV steroid. Monitor fingerstick blood sugar with now sliding scale and c ontinue his other current home medications and continue current Eliquis. I will see him tomorrow for followup. Possible discharge to go home over the weekend depending on his condition. JANICE/MODL Voice ID: [id number] Report ID: [id number]
[2021-02-15] MEDS: BIMATOPROST OPHTH DROPS/2.5 ML BTL OPTH SCH (21:00)
[2021-02-15] MEDS: ROPINIROLE HCL 0.25 MG TAB PO SCH (21:04)
[2021-02-15] MEDS: DONEPEZIL HCL 5 MG TAB PO SCH (21:05)
[2021-02-16] MEDS: METHYLPREDNISOLONE 125 MG INJ IV SCH ×3 (00:27→17:17)
[2021-02-16] MEDS: ACETAMINOPHEN 325 MG TABLET PO PRN (00:44)
[2021-02-16] MEDS: INSULIN -REGULAR HUMAN 50 UNIT/0.5 ML ML SQ SCH ×4 (07:30→21:00)
[2021-02-16 08:13] LABS: Absolute Lymphocytes (CBC) 0.3 K/uL (0.7-4.9); Basophils % 0.4 % (0-1.3); Hematocrit 37.3 % (39.6-49.0); Lymphocytes % 2.2 % (15.3-44.8); MPV 7.8 fL (7.6-11.3); RBC Red Blood Cell Count 4.29 M/uL (4.33-5.43)
[2021-02-16 08:35] LABS: ALT/SGPT 31 U/L (12-78); AST/SGOT 23 U/L (15-37); Albumin 2.3 g/dL (3.4-5.0); Alkaline Phosphatase 76 U/L (45-117); BUN Blood Urea Nitrogen 21 mg/dL (7-18); Bicarbonate 26 mmol/L (21-32); Bilirubin Total 0.4 mg/dL (0.2-1.0); Glucose Level 190 mg/dL (74-106); Magnesium 2.5 mg/dL (1.8-2.4); Potassium 4.4 mmol/L (3.5-5.1); Sodium Level 138 mmol/L (136-145)
[2021-02-16] MEDS: APIXABAN 5 MG TABLET PO SCH ×2 (09:00→20:01)
[2021-02-16] MEDS: METOPROLOL XL 25 MG TAB PO SCH (09:00)
[2021-02-16] MEDS: lisinopriL 5 MG TAB PO SCH ×2 (09:00→21:35)
[2021-02-16] MEDS: FAMOTIDINE 20 MG TAB PO SCH ×2 (09:00→20:01)
[2021-02-16] MEDS: MEMANTINE HCL 10 MG TABLET PO SCH ×2 (09:03→20:02)
[2021-02-16] MEDS: ONDANSETRON 4 MG/2 ML VIAL IV PRN (10:38)
--- NOTE | 2021-02-16 10:39 | RAD REPORT ---
EXAM DESCRIPTION: RAD - Chest Single View - 02/16/2021 8:50 am CLINICAL HISTORY: covid Chest pain. COMPARISON: Chest Pa And Lat (2 Views) dated 02/13/2021; Chest Pa And Lat (2 Views) dated 05/02/2020; Chest Pa And Lat (2 Views) dated 12/15/2018; Chest Pa And Lat (2 Views) dated 08/15/2017 FINDINGS: Portable technique limits examination quality. Moderate opacification of left mid and lower lungs right lung base is noted, progressive since 2020. The heart is normal in size. No displaced fractures. IMPRESSION: Moderate progression in bilateral pulmonary opacities since comparative study seen. Find ings appear most significant involving the left lung.
[2021-02-16] MEDS ORDERED: FUROSEMIDE 20 MG/ 2ML VIAL IV ONE (13:00)
[2021-02-16] MEDS: ROPINIROLE HCL 0.25 MG TAB PO SCH (20:01)
[2021-02-16] MEDS: DONEPEZIL HCL 5 MG TAB PO SCH (20:01)
[2021-02-16] MEDS: BIMATOPROST OPHTH DROPS/2.5 ML BTL OPTH SCH (20:02)
[2021-02-16] MEDS: QUETIAPINE 25 MG TAB PO SCH (20:02)
[2021-02-16] MEDS ORDERED: QUETIAPINE 25 MG TAB PO ONE (22:42)
--- NOTE | 2021-02-16 22:54 | PN ---
Date of Progress Note: 02/16/2021 Subjective: Patient was seen this morning for followup. He was lying in bed, not in distress. Last night, he had agitation, confusion, restlessness, required Seroquel 25 mg p.o. x1 dose and also Hald ol was ordered for p.r.n. use. This morning, his was with him. No new complaints or problems r eported. He is on oxygen 2-3 L/minute nasal cannula, maintaining adequate oxygenation. Objective: Vital Signs: Reviewed. HEENT: Unremarkable. Lungs: Clear to auscultation. HEART: Sounds normal. Abdomen: Soft. Bowel sounds normal. No guarding, rigidity, tenderness, or distention. Extremities: No leg edema. Laboratory Data: White count 15.4, hemoglobin 12.4, platelets 306. Sodium 138, potassium 4.4, chlor ritchie 108, bicarb 26, BUN 21, creatinine 0.76, glucose 190. Liver function tests normal. CRP 11.30. Chest x-ray mild worsening of lung infiltrate compared to before. Impression: 1.COVID-19 infection. 2.COVID-19 pneumonia. 3.Acute respiratory failure with hypoxia. 4.Alzheimer disease. 5.Hypertension. 6.Type 2 diabetes mellitus. Plan: We will go ahead and continue current medication. Continue steroid, continue current antibiot ic and I will see him tomorrow for followup. Details were discussed with Dr. Wilson. Also, commun icated all the details with patient's and she was informed that depending on his condition tomor row, we will decide if we can discharge him to go home safely tomorrow or not. We will repeat blood work and a chest x-ray in the morning and 1 dose of Lasix 20 mg was given today. His CRP is improving. Patient will need to go home with home oxygen. JANICE/MODL Voice ID: [id number] Report ID: [id number]
[2021-02-17] MEDS: METHYLPREDNISOLONE 125 MG INJ IV SCH ×3 (00:48→17:13)
[2021-02-17] MEDS: INSULIN -REGULAR HUMAN 50 UNIT/0.5 ML ML SQ SCH ×4 (07:30→20:43)
--- NOTE | 2021-02-17 09:14 | RAD REPORT ---
EXAM DESCRIPTION: Dee Single View02/17/2021 9:07 am CLINICAL HISTORY: Chest pain COMPARISON: February 16, 2021 FINDINGS: Minimal worsening in left and no significant change right pulmonary opacities. The heart is normal size IMPRESSION: Minimal worsening in left no significant change right pulmonary opacities likely pneumo suze
[2021-02-17] MEDS: APIXABAN 5 MG TABLET PO SCH ×2 (09:51→20:24)
[2021-02-17] MEDS: FAMOTIDINE 20 MG TAB PO SCH ×2 (09:51→20:24)
[2021-02-17] MEDS: METOPROLOL XL 25 MG TAB PO SCH (09:51)
[2021-02-17] MEDS: MEMANTINE HCL 10 MG TABLET PO SCH ×2 (09:51→20:23)
[2021-02-17] MEDS: lisinopriL 5 MG TAB PO SCH ×2 (09:52→21:00)
[2021-02-17 10:13] LABS: C-Reactive Protein 8.66 mg/L (<3.00); Magnesium 2.5 mg/dL (1.8-2.4)
[2021-02-17] MEDS ORDERED: FUROSEMIDE 20 MG/ 2ML VIAL IV ONE (11:47)
--- NOTE | 2021-02-17 11:48 | P.PN ---
Subjective Date of Service: 02/17/21 Chief Complaint: Respiratory failure from coronavirus Subjective: Improving (Patient is doing well no new complaints hypoxic) Review of Systems General: Weakness Respiratory: Shortness of Breath Physical Examination - Vital Signs Temperature: 98.3 F Blood Pressure: 158/72 Pulse: 66 Respirations: 28 Pulse Ox (%): 89 - Physical Exam General: Alert, Oriented x3, Cooperative Assessment & Plan - Problems (Diagnosis) (1) Pneumonia due to coronavirus disease 2019 Current Visit: Yes Status: Acute Plan: Condition stable 3 L nasal cannula oxygen stable discharge tomorrow start on levofloxacin white count is mildly elevated I suspect is secondary to steroids chest x-ray questionable worsening peak dose of Lasix possible discharge tomorrow if clinically stable
--- NOTE | 2021-02-17 11:55 | PN ---
Date of Progress Note: 02/17/2021 Subjective: The patient was seen this morning for followup. He was sitting at bedside with nasal ca nnula oxygen on. was with him. No new complaints or problems reported. He slept well last nig ht with Seroquel. He is complaining of some right-sided pleuritic chest pain today. Objective: Vital Signs: Reviewed. HEENT: Unremarkable. Lungs: Clear to auscultation. Heart: Sounds normal. Abdomen: Soft. Bowel sounds normal. No guarding, rigidity, tenderness, or distention. Extremities: No leg edema. Laboratory Data: Pending. Chest x-ray shows right-sided infiltrate unchanged, left-sided infiltrate slightly worse today than yesterday. Impression: 1.COVID-19 infection. 2.COVID-19 pneumonia. 3.Alzheimer disease. Plan: We will continue current medication. Continue current steroid, oxygen therapy. Details were discussed with Dr. Wilson and we will start him on empiric antibiotic therapy. We will evaluate jaison sanders tomorrow to see whether he is stable for discharge tomorrow or not, but all these details were disc ussed with the patient's today. I will see him tomorrow for followup. JANICE/MODL Voice ID: [id number] Report ID: [id number]
[2021-02-17] MEDS: levoFLOXacin 500 MG TAB PO SCH (12:29)
[2021-02-17] MEDS: DONEPEZIL HCL 5 MG TAB PO SCH (20:23)
[2021-02-17] MEDS: QUETIAPINE 25 MG TAB PO SCH (20:24)
[2021-02-17] MEDS: ROPINIROLE HCL 0.25 MG TAB PO SCH (20:27)
[2021-02-17] MEDS: BIMATOPROST OPHTH DROPS/2.5 ML BTL OPTH SCH (21:00)
[2021-02-18] MEDS: METHYLPREDNISOLONE 125 MG INJ IV SCH ×3 (00:34→17:23)
[2021-02-18] MEDS: INSULIN -REGULAR HUMAN 50 UNIT/0.5 ML ML SQ SCH ×4 (07:30→20:36)
[2021-02-18 08:22] LABS: Absolute Lymphocytes (CBC) 0.4 K/uL (0.7-4.9); Basophils % 0.2 % (0-1.3); Hematocrit 41.5 % (39.6-49.0); Lymphocytes % 3.5 % (15.3-44.8); MPV 7.6 fL (7.6-11.3); RBC Red Blood Cell Count 4.78 M/uL (4.33-5.43)
--- NOTE | 2021-02-18 08:33 | RAD REPORT ---
EXAM DESCRIPTION: RAD - Chest Single View - 02/18/2021 8:20 am CLINICAL HISTORY: COVIDpneumonia COMPARISON: February 17 TECHNIQUE: AP portable chest image was obtained 02/18/2021 8:20 am . FINDINGS: Bilateral lung base and lateral left lung field pneumonia changes are evident. Lung volume is improved which creates an overall improved appearance to the chest. Patient has probably had a tr ue mild improvement. No evidence for progressive lung parenchymal disease. No failure or volume overl oad. Heart and vasculature are normal. No measurable pleural effusion and no pneumothorax. No acute b marvin abnormality seen. No acute aortic findings suspected. IMPRESSION: Interval decrease in the amount of lung parenchymal opacification since the prior day st udy. This is believed to be a combination of improved lung volumes and true improvement of lung disea se.
[2021-02-18 08:35] LABS: Albumin 2.5 g/dL (3.4-5.0); Bilirubin Total 0.6 mg/dL (0.2-1.0); C-Reactive Protein 13.1 mg/L (<3.00); Magnesium 2.5 mg/dL (1.8-2.4); Protein, Total 6.6 g/dL (6.4-8.2)
[2021-02-18] MEDS: METOPROLOL XL 25 MG TAB PO SCH (08:39)
[2021-02-18] MEDS: levoFLOXacin 500 MG TAB PO SCH (08:39)
[2021-02-18] MEDS: MEMANTINE HCL 10 MG TABLET PO SCH ×2 (08:39→20:35)
[2021-02-18] MEDS: APIXABAN 5 MG TABLET PO SCH ×2 (08:39→20:35)
[2021-02-18] MEDS: FAMOTIDINE 20 MG TAB PO SCH ×2 (08:40→20:35)
[2021-02-18] MEDS: lisinopriL 5 MG TAB PO SCH ×2 (08:40→20:36)
[2021-02-18] MEDS ORDERED: SOD CHLORIDE 0.65% NASAL SPRAY NAS PRN (10:40)
[2021-02-18 14:15] LABS: White Blood Cell Scan OK (OK)
[2021-02-18 14:16] LABS: Blood Morphology Comment NOT SEEN (NOT SEEN); Platelet Estimate ADEQ
[2021-02-18] MEDS: ACETAMINOPHEN 325 MG TABLET PO PRN (14:28)
[2021-02-18] MEDS: QUETIAPINE 25 MG TAB PO SCH (20:35)
[2021-02-18] MEDS: ROPINIROLE HCL 0.25 MG TAB PO SCH (20:35)
[2021-02-18] MEDS: BIMATOPROST OPHTH DROPS/2.5 ML BTL OPTH SCH (20:36)
[2021-02-18] MEDS: DONEPEZIL HCL 5 MG TAB PO SCH (20:36)
[2021-02-19] MEDS: METHYLPREDNISOLONE 125 MG INJ IV SCH ×3 (00:04→16:48)
[2021-02-19 05:49] LABS: Absolute Lymphocytes (CBC) 0.5 K/uL (0.7-4.9); Basophils % 0.2 % (0-1.3); Hematocrit 39.2 % (39.6-49.0); Lymphocytes % 3.7 % (15.3-44.8); MPV 7.5 fL (7.6-11.3); RBC Red Blood Cell Count 4.55 M/uL (4.33-5.43)
[2021-02-19 06:01] LABS: ALT/SGPT 45 U/L (12-78); AST/SGOT 21 U/L (15-37); Albumin 2.4 g/dL (3.4-5.0); Alkaline Phosphatase 69 U/L (45-117); BUN Blood Urea Nitrogen 27 mg/dL (7-18); Bicarbonate 27 mmol/L (21-32); Bilirubin Total 0.5 mg/dL (0.2-1.0); C-Reactive Protein 4.86 mg/L (<3.00); Glucose Level 190 mg/dL (74-106); Potassium 4.5 mmol/L (3.5-5.1); Protein, Total 6.2 g/dL (6.4-8.2); Sodium Level 138 mmol/L (136-145)
[2021-02-19] MEDS: INSULIN -REGULAR HUMAN 50 UNIT/0.5 ML ML SQ SCH ×4 (07:30→20:26)
--- NOTE | 2021-02-19 07:36 | PN ---
Date of Progress Note: 02/18/2021 Subjective: The patient was seen for followup in the morning. No new complaints or problems reporte d. Lying in bed, not in distress. He did not have his nasal cannula oxygen in place and it was lyin g in the bed and it was set at 6 L/minute, but he was not getting any oxygen. Nurse was asked to meghan ck oxygen saturation in room air. It was 80% and his oxygen was replaced back at 6 L/minute. Objective: Vital Signs: Reviewed. HEENT: Unremarkable. Lungs: Clear to auscultation. Heart: Sounds normal. Abdomen: Soft. Bowel sounds normal. No guarding, rigidity, tenderness, or distention. Extremities: No leg edema. Laboratory Data: CBC, chemistry, and CRP from today and chest x-ray results reviewed. Impression: 1.COVID-19 infection. 2.COVID-19 pneumonia. 3.Acute respiratory failure with hypoxia. 4.Alzheimer disease. 5.Hypertension. 6.Type 2 diabetes mellitus. Plan: We will continue current medications. Continue current steroid. We will continue to follow w gage Wilson. During the course of day today, we were able to reduce his oxygen from 6 L/minute down to 4 L/minute. We will continue to monitor him today and overnight of course and we will repeat blood work and chest x-ray tomorrow. This morning, details were discussed with the patient's . I will see him tomorrow for followup. We will continue current oxygen replacement therapy, st eroids, and antibiotics. JANICE/MODL Voice ID: [id number] Report ID: [id number]
--- NOTE | 2021-02-19 07:43 | RAD REPORT ---
EXAM DESCRIPTION: Dee Single View02/19/2021 7:11 am CLINICAL HISTORY: Shortness of breath COMPARISON: February 18, 2021 FINDINGS: Allowing for differences in technique no significant change in the bilateral pulmonary opa cities The heart is normal size IMPRESSION: No significant change in the bilateral pneumonia
[2021-02-19] MEDS: APIXABAN 5 MG TABLET PO SCH ×2 (08:59→20:23)
[2021-02-19] MEDS: levoFLOXacin 500 MG TAB PO SCH (08:59)
[2021-02-19] MEDS: MEMANTINE HCL 10 MG TABLET PO SCH ×2 (08:59→20:23)
[2021-02-19] MEDS: FAMOTIDINE 20 MG TAB PO SCH ×2 (08:59→20:22)
[2021-02-19] MEDS: lisinopriL 5 MG TAB PO SCH ×2 (09:00→20:25)
[2021-02-19] MEDS: METOPROLOL XL 25 MG TAB PO SCH (09:02)
[2021-02-19] MEDS: ACETAMINOPHEN 325 MG TABLET PO PRN (20:23)
[2021-02-19] MEDS: DONEPEZIL HCL 5 MG TAB PO SCH (20:23)
[2021-02-19] MEDS: QUETIAPINE 25 MG TAB PO SCH (20:24)
[2021-02-19] MEDS: ROPINIROLE HCL 0.25 MG TAB PO SCH (20:24)
[2021-02-19] MEDS: BIMATOPROST OPHTH DROPS/2.5 ML BTL OPTH SCH (21:00)
[2021-02-20] MEDS: METHYLPREDNISOLONE 125 MG INJ IV SCH ×3 (00:54→18:16)
[2021-02-20] MEDS: HALOPERIDOL LACT 5 MG/ML INJ IV PRN ×2 (00:58→22:14)
--- NOTE | 2021-02-20 06:13 | PN ---
Date of Progress Note: 02/19/2021 Subjective: Patient was seen this morning for followup. No new complaints or problems reported by t he patient, lying in bed, sleeping, not in any distress, arousable. Overnight, the patient's oxygen level had gone down and he was on 15 L nasal cannula oxygen throughout the night and that is what he was on this morning when I saw him, his oxygen saturation was 93% when I saw him. Objective: Vital Signs: Reviewed. HEENT: Unremarkable. Lungs: Clear to auscultation. Heart: Heart sounds normal. Abdomen: Soft. Bowel sounds normal. No guarding, rigidity, tenderness, distention. Extremities: No leg edema. Laboratory Data: White count 13, hemoglobin 13.3, and a platelet count 317. Sodium 138, potassium 3 .5, chloride 107, bicarb 27, BUN 27, creatinine 0.82, glucose 190. Liver function tests unremarkable . CRP 4.86. Chest x-ray, unchanged from yesterday. Impression: 1.COVID-19 infection. 2.COVID-19 pneumonia. 3.Acute respiratory failure with hypoxia. 4.Alzheimer disease. Plan: We will continue current medication, continue current steroid, fingerstick blood sugar check w ith sliding scale insulin for diabetes management. Continue current empiric antibiotic and oxygen replacement therapy. I will see him tomorrow for followup. I did call the patient's and discus sed details with her today. JANICE/MODL Voice ID: [id number] Report ID: [id number]
[2021-02-20] MEDS: INSULIN -REGULAR HUMAN 50 UNIT/0.5 ML ML SQ SCH ×4 (07:30→21:00)
[2021-02-20] MEDS: levoFLOXacin 500 MG TAB PO SCH (08:43)
[2021-02-20] MEDS: MEMANTINE HCL 10 MG TABLET PO SCH ×2 (08:44→22:15)
[2021-02-20] MEDS: APIXABAN 5 MG TABLET PO SCH ×2 (08:44→22:16)
[2021-02-20] MEDS: lisinopriL 5 MG TAB PO SCH ×2 (08:44→22:19)
[2021-02-20] MEDS: FAMOTIDINE 20 MG TAB PO SCH ×2 (08:44→22:15)
[2021-02-20] MEDS: METOPROLOL XL 25 MG TAB PO SCH (09:40)
[2021-02-20] MEDS: DONEPEZIL HCL 5 MG TAB PO SCH (10:15)
[2021-02-20] MEDS: ACETAMINOPHEN 325 MG TABLET PO PRN (15:00)
--- NOTE | 2021-02-20 19:25 | PN ---
Date of Progress Note: 02/20/2021 Subjective: The patient was seen this morning for followup. No new complaints or problems reported by the patient. He was sleeping, easily arousable, not in distress. He was on nasal cannula 10 L pe r minute and in the computer, it was documented as 15 L/minute, but when I saw him, he was on 10 L na irina cannula oxygen. He was maintaining adequate oxygenation. It was 92% to 94% while I was in the r oom with him. Objective: Vital Signs: Reviewed. HEENT: Unremarkable. Lungs: Clear to auscultation. Heart: Sounds normal. Abdomen: Soft. Bowel sounds normal. No guarding, rigidity, tenderness, distention. Extremities: No leg edema. Impression: 1.COVID-19 infection. 2.COVID-19 pneumonia. 3.Acute respiratory failure with hypoxia. 4.Alzheimer disease. 5.Hypertension. 6.Type 2 diabetes mellitus. Plan: We will continue current medication, continue current anticoagulation therapy, oxygen replacem ent therapy, steroid, etc. and we will have Physical Therapy continue to work with the patient. I wi ll see him tomorrow for followup. JANICE/MODL Voice ID: [id number] Report ID: [id number]
[2021-02-20] MEDS: BIMATOPROST OPHTH DROPS/2.5 ML BTL OPTH SCH (21:00)
[2021-02-20] MEDS: ROPINIROLE HCL 0.25 MG TAB PO SCH (21:00)
[2021-02-20] MEDS: QUETIAPINE 25 MG TAB PO SCH (22:15)
[2021-02-20 23:47] LABS: Creatine Phosphokinase 66 U/L (39-308)
[2021-02-20 23:48] LABS: CKMB Creatine Kinase MB < 1.0 ng/mL (1.0-3.6)
[2021-02-21] MEDS: NITROGLYCERIN 1 GM PKT TD SCH ×4 (00:57→17:31)
[2021-02-21] MEDS: METHYLPREDNISOLONE 125 MG INJ IV SCH ×3 (01:00→20:33)
[2021-02-21] MEDS ORDERED: LORazepam 2 MG/ML VIAL IM ONE (01:41)
[2021-02-21 06:07] LABS: Absolute Lymphocytes (CBC) 0.5 K/uL (0.7-4.9); Basophils % 0.4 % (0-1.3); Lymphocytes % 2.8 % (15.3-44.8); MPV 7.2 fL (7.6-11.3); RBC Red Blood Cell Count 4.72 M/uL (4.33-5.43)
[2021-02-21 06:22] LABS: ALT/SGPT 51 U/L (12-78); AST/SGOT 20 U/L (15-37); Albumin 2.4 g/dL (3.4-5.0); Alkaline Phosphatase 64 U/L (45-117); BUN Blood Urea Nitrogen 24 mg/dL (7-18); Bicarbonate 25 mmol/L (21-32); Bilirubin Total 0.6 mg/dL (0.2-1.0); Glucose Level 152 mg/dL (74-106); Magnesium 2.4 mg/dL (1.8-2.4); Potassium 4.1 mmol/L (3.5-5.1); Sodium Level 139 mmol/L (136-145)
[2021-02-21 06:25] LABS: C-Reactive Protein < 2.90 mg/L (<3.00)
[2021-02-21] MEDS: INSULIN -REGULAR HUMAN 50 UNIT/0.5 ML ML SQ SCH ×4 (07:30→22:45)
[2021-02-21 08:31] LABS: Blood Morphology Comment NOT SEEN (NOT SEEN); Platelet Estimate ADEQ
[2021-02-21] MEDS: lisinopriL 5 MG TAB PO SCH ×2 (09:00→20:44)
[2021-02-21] MEDS: METOPROLOL XL 25 MG TAB PO SCH (09:00)
[2021-02-21] MEDS: APIXABAN 5 MG TABLET PO SCH ×3 (09:28→20:51)
[2021-02-21] MEDS: FAMOTIDINE 20 MG TAB PO SCH ×2 (09:28→20:33)
[2021-02-21] MEDS: levoFLOXacin 500 MG TAB PO SCH (09:29)
[2021-02-21] MEDS: MEMANTINE HCL 10 MG TABLET PO SCH ×2 (09:30→20:33)
[2021-02-21] MEDS: ASPIRIN EC 81 MG TAB PO SCH (09:30)
--- NOTE | 2021-02-21 09:35 | RAD REPORT ---
EXAM DESCRIPTION: RAD - Chest Single View - 02/21/2021 5:58 am ADDENDUM #1 THIS REPORT CONTAINS FINDINGS THAT MAY BE CRITICAL TO PATIENT CARE: Bruna Banks confirmed the findings were received by with Dr. Saud Hall on 02/21/2021 7:06 AM CDT . Electronically signed by: Lee Wang MD 02/21/2021 7:59 AM CDT End of Addendum EXAM: Chest Radiography COMPARISON: Chest COMPARISON: Chest radiograph February 19, 2021 report only CLINICAL HISTORY: Covid FINDINGS: A single AP view of the chest demonstrates a normal cardiomediastinal silhouette. Pneumome diastinum and supraclavicular gas are present. No pneumothorax or pleural effusion. Bibasilar consolidations are present. Osseous structures are intact. IMPRESSION: Multifocal pneumonia with pneumomediastinum and supraclavicular gas. This could be due t o barotrauma or cough, and other processes. Comparison images are not available for review. Electronically signed by: Lee Wang MD 02/21/2021 6:18 AM CDT Due to temporary technical issues with the PACS/Fluency reporting system, reports are being signed by the in house radiologists without review as a courtesy to insure prompt reporting. The interpreting radiologist is fully responsible for the content of the report.
[2021-02-21] MEDS: FLUCONAZOLE 100 MG TAB PO SCH (09:41)
[2021-02-21] MEDS: ACETAMINOPHEN 325 MG TABLET PO PRN (09:41)
[2021-02-21] MEDS: ZINC SULFATE 220 MG CAP PO SCH (09:42)
[2021-02-21] MEDS: VITAMIN D 1000 UNIT TAB PO SCH (09:42)
[2021-02-21] MEDS: ASCORBIC ACID 500 MG TABLET PO SCH (09:42)
[2021-02-21] MEDS: FENOFIBRATE 160 MG TAB PO SCH (09:43)
--- NOTE | 2021-02-21 12:27 | P.PN ---
Subjective Date of Service: 02/21/21 Chief Complaint: Respiratory failure from coronavirus Patient developed some chest pain today/chest x-ray showed pneumomediastinum currently stable Review of Systems General: Weakness Physical Examination - Vital Signs Temperature: 97.1 F Blood Pressure: 119/63 Pulse: 77 Respirations: 20 Pulse Ox (%): 97 - Physical Exam General: Oriented x3, Cooperative Assessment & Plan - Problems (Diagnosis) (1) Pneumonia due to coronavirus disease 2019 Current Visit: Yes Status: Acute Plan: Patient remains hypoxic due to correct patient remains hypoxic due to coronavirus pneumonia has now developed pneumomediastinum oxygenation satisfactory
[2021-02-21] MEDS: ONDANSETRON 4 MG/2 ML VIAL IV PRN ×2 (15:33→21:00)
[2021-02-21] MEDS: BIMATOPROST OPHTH DROPS/2.5 ML BTL OPTH SCH (20:35)
[2021-02-21] MEDS: DONEPEZIL HCL 5 MG TAB PO SCH (20:44)
[2021-02-21] MEDS: ROPINIROLE HCL 0.25 MG TAB PO SCH (20:53)
[2021-02-21] MEDS: QUETIAPINE 25 MG TAB PO SCH ×2 (20:59)
[2021-02-22] MEDS: NITROGLYCERIN 1 GM PKT TD SCH ×3 (05:58→12:00)
--- NOTE | 2021-02-22 06:21 | PN ---
Date of Progress Note: 02/21/2021 Subjective: The patient was seen for followup this morning. He was lying in bed, sleeping with nasa l cannula oxygen at 10 L/minute, not in any distress. Last night, the patient had some chest pain. EKG and cardiac enzymes were done. His troponin level was 0.1 x2. Nitroglycerin paste was started, and a chest x-ray done early this morning shows evidence of pneumomediastinum. Objective: Vital Signs: Reviewed. HEENT: Unremarkable. Lungs: Clear to auscultation. Not using accessory muscles of respiration. Heart: Sounds normal. Abdomen: Soft. Bowel sounds normal. No guarding, rigidity, tenderness, or distention. Extremities: No leg edema. Laboratory Data: Laboratory Data: White count 18.8, hemoglobin 13.7, platelet count 330. Sodium 13 9, potassium 4.1, chloride 107, bicarb 25, BUN 24, creatinine 0.73, glucose 152. Liver function test s unremarkable. CRP less than 2.90, albumin 2.40. Impression: 1.COVID-19 infection. 2.COVID-19 pneumonia. 3.Acute respiratory failure with hypoxia. 4.Pneumomediastinum. Plan: We will go ahead and continue oxygen replacement therapy. I did communicate the test with Dr. Wilson this morning regarding this abnormal chest x-ray finding and he will evaluate the patient a nd we will continue to follow up with him for further management. Continue current steroid, antibiotic, Eliquis, etc. I did call the patient's and details were discussed with her as well. JANICE/MODL Voice ID: [id number] Report ID: [id number]
[2021-02-22] MEDS: INSULIN -REGULAR HUMAN 50 UNIT/0.5 ML ML SQ SCH ×4 (07:30→21:14)
[2021-02-22] MEDS ORDERED: MAGNESIUM HYDROXIDE 8% 30 ML PO ONE (07:52)
[2021-02-22] MEDS: DONEPEZIL HCL 5 MG TAB PO SCH (08:00)
--- NOTE | 2021-02-22 08:05 | ECHO ---
HEIGHT: 5 ft 9 in WEIGHT: 160 lb 0 oz DATE OF STUDY: 02/21/[address]: Saud Hall MD 2-DIMENSIONAL: YES M.MODE: YES DOPPLER: YES COLOR FLOW: YES TDS: NO PORTABLE: NO DEFINITY: NO BUBBLE STUDY: NO DIAGNOSIS: CHEST PAIN CARDIAC HISTORY: CATHERIZATION: SURGERY: PROSTHETIC VALVE: PACEMAKER: MEASUREMENTS (cm) DIASTOLIC (NORMALS) SYSTOLIC (NORMALS) IVSd 1.1 (0.6-1.2) LA Diam (1.9-4.0) LVEF >60% LVIDd 3.7 (3.5-5.7) LVIDs 2.2 (2.0-3.5) %FS 41% LVPWd 1.0 (0.6-1.2) Ao Diam 3.2 (2.0-3.7) 2 DIMENSIONAL ASSESSMENT: RIGHT ATRIUM: NORMAL LEFT ATRIUM: NORMAL RIGHT VENTRICLE: NORMAL LEFT VENTRICLE: NORMAL TRICUSPID VALVE: NORMAL MITRAL VALVE: APPEARS NORMAL PULMONIC VALVE: NOT SEEN AORTIC VALVE: NORMAL PERICARDIAL EFFUSION: NONE AORTIC ROOT: NORMAL LEFT VENTRICULAR WALL MOTION: NORMAL DOPPLER/COLOR FLOW: COMMENTS: HYPERDYNAMIC LEFT VENTRICULAR WITH LEFT VENTRICULAR EJECTION FRACTION >60%. NORMAL RIGHT VENTRICULAR SIZE AND FUNCTION. TECHNOLOGIST: Isaac LOPES
[2021-02-22] MEDS: ASPIRIN EC 81 MG TAB PO SCH (08:49)
[2021-02-22] MEDS: ASCORBIC ACID 500 MG TABLET PO SCH (08:49)
[2021-02-22] MEDS: APIXABAN 5 MG TABLET PO SCH ×2 (08:49→20:02)
[2021-02-22] MEDS: MEMANTINE HCL 10 MG TABLET PO SCH ×2 (08:49→20:04)
[2021-02-22] MEDS: ZINC SULFATE 220 MG CAP PO SCH (08:49)
[2021-02-22] MEDS: METOPROLOL XL 25 MG TAB PO SCH (08:50)
[2021-02-22] MEDS: FENOFIBRATE 160 MG TAB PO SCH (08:52)
[2021-02-22] MEDS: levoFLOXacin 500 MG TAB PO SCH (08:52)
[2021-02-22] MEDS: lisinopriL 5 MG TAB PO SCH ×2 (08:53→21:14)
[2021-02-22] MEDS: METHYLPREDNISOLONE 125 MG INJ IV SCH (08:54)
[2021-02-22] MEDS: VITAMIN D 1000 UNIT TAB PO SCH (08:54)
[2021-02-22] MEDS: FAMOTIDINE 20 MG TAB PO SCH ×2 (08:54→20:04)
[2021-02-22] MEDS: FLUCONAZOLE 100 MG TAB PO SCH (08:57)
--- NOTE | 2021-02-22 08:58 | RAD REPORT ---
EXAM DESCRIPTION: RAD - Chest Single View - 02/22/2021 6:29 am CLINICAL HISTORY: Pneumomediastinum Chest pain. COMPARISON: Chest Single View dated 02/21/2021; Chest Single View dated 02/19/2021; Chest Single View d ated 02/18/2021; Chest Single View dated 02/17/2021 FINDINGS: Portable technique limits examination quality. Since yesterday's study, mild improvement is seen in bilateral lung aeration. Pneumomediastinum appea rs unchanged. Subcutaneous emphysema has mildly improved. The heart is normal in size. No displaced f ractures.
--- NOTE | 2021-02-22 13:27 | P.PN ---
Subjective Date of Service: 02/22/21 Chief Complaint: Respiratory failure from coronavirus Patient is a little disoriented today however clinically improving no evidence of progression of her pneumomediastinum oxygen requirements are declining Review of Systems General: Weakness Respiratory: Shortness of Breath Physical Examination - Vital Signs Temperature: 98.2 F Blood Pressure: 113/62 Pulse: 65 Respirations: 18 Pulse Ox (%): 97 - Physical Exam General: Alert, Cooperative Assessment & Plan - Problems (Diagnosis) (1) Pneumonia due to coronavirus disease 2019 Current Visit: Yes Status: Acute Plan: Patient's oxygen requirements are declining is been no worsening of his pneumomediastinum no evidence of pneumothorax currently sat is 97% on 5 L discharge planning
--- NOTE | 2021-02-22 17:54 | RAD REPORT ---
EXAM DESCRIPTION: RAD - Chest Single View - 02/22/2021 5:38 pm CLINICAL HISTORY: Device placement PICC line placement . IMPRESSION: PICC line with its tip in the mid superior vena cava
[2021-02-22] MEDS: QUETIAPINE 25 MG TAB PO SCH ×2 (20:03)
[2021-02-22] MEDS: ROPINIROLE HCL 0.25 MG TAB PO SCH (20:03)
[2021-02-22] MEDS: BIMATOPROST OPHTH DROPS/2.5 ML BTL OPTH SCH (20:10)
[2021-02-22] MEDS: METHYLPREDNISOLONE 40 MG INJ IV SCH (21:16)
[2021-02-23 05:05] LABS: Absolute Lymphocytes (CBC) 0.4 K/uL (0.7-4.9); Basophils % 0.5 % (0-1.3); Hematocrit 42.4 % (39.6-49.0); Lymphocytes % 3.1 % (15.3-44.8); MPV 7.5 fL (7.6-11.3); RBC Red Blood Cell Count 4.88 M/uL (4.33-5.43)
[2021-02-23 05:52] LABS: BUN Blood Urea Nitrogen 26 mg/dL (7-18); Bicarbonate 27 mmol/L (21-32); Glucose Level 186 mg/dL (74-106); Potassium 4.5 mmol/L (3.5-5.1); Sodium Level 139 mmol/L (136-145)
[2021-02-23] MEDS: INSULIN -REGULAR HUMAN 50 UNIT/0.5 ML ML SQ SCH ×4 (07:30→20:38)
--- NOTE | 2021-02-23 08:01 | RAD REPORT ---
EXAM DESCRIPTION: Lenyt Single View02/23/2021 7:14 am CLINICAL HISTORY: Shortness breath COMPARISON: February 22, 2021 FINDINGS: No significant change in the bilateral pulmonary opacities No significant change pneumomediastinum bilateral subcutaneous emphysema Heart is normal size. PICC line placed Equivocal tiny right pneumothorax IMPRESSION: No significant change in the bilateral pulmonary opacities common pneumomediastinum and subcutaneous emphysema Equivocal tiny right pneumothorax
[2021-02-23] MEDS: lisinopriL 5 MG TAB PO SCH ×2 (08:20→19:34)
[2021-02-23] MEDS: METOPROLOL XL 25 MG TAB PO SCH (08:20)
[2021-02-23] MEDS: FLUCONAZOLE 100 MG TAB PO SCH (08:53)
[2021-02-23] MEDS: ASCORBIC ACID 500 MG TABLET PO SCH (08:54)
[2021-02-23] MEDS: MEMANTINE HCL 10 MG TABLET PO SCH ×2 (08:54→19:35)
[2021-02-23] MEDS: FENOFIBRATE 160 MG TAB PO SCH (08:54)
[2021-02-23] MEDS: VITAMIN D 1000 UNIT TAB PO SCH (08:54)
[2021-02-23] MEDS: levoFLOXacin 500 MG TAB PO SCH (08:54)
[2021-02-23] MEDS: ZINC SULFATE 220 MG CAP PO SCH (08:54)
[2021-02-23] MEDS: FAMOTIDINE 20 MG TAB PO SCH ×2 (08:54→19:34)
[2021-02-23] MEDS: ASPIRIN EC 81 MG TAB PO SCH (08:54)
[2021-02-23] MEDS: METHYLPREDNISOLONE 40 MG INJ IV SCH ×2 (08:54→19:33)
[2021-02-23] MEDS: APIXABAN 5 MG TABLET PO SCH ×2 (08:54→19:37)
--- NOTE | 2021-02-23 10:28 | PN ---
Date of Progress Note: 02/22/2021 Subjective: The patient was seen this morning for followup. No new complaints or problems reported by patient, lying in bed, not in distress, maintaining adequate oxygenation with nasal cannula oxygen . Objective: Vital Signs: Reviewed. HEENT: Examination unremarkable. Lungs: Clear to auscultation. Cardiac: Heart sounds normal. Abdomen: Soft. Bowel sounds normal. No guarding, rigidity, tenderness, or distention. Extremities: No leg edema. Chest x-ray shows evidence of mid pneumomediastinum with some evidence of subcutaneous emphysema. Impression: 1.COVID-19 infection. 2.COVID-19 pneumonia. 3.Acute respiratory failure with hypoxia. 4.Pneumomediastinum. 5.Subcutaneous emphysema. 6.Type 2 diabetes mellitus. 7.Alzheimer disease. Plan: We will continue current medications. Continue to follow with Dr. Wilson. Patient today is on 5 L nasal cannula oxygen, maintaining adequate oxygenation and we will continue other current man agement. Last night, he had episode of few spots of blood coming out of urethral meatus after he uri nated as reported by nursing staff. So his yesterday's evening dose of Eliquis was kept on hold and overnight, he has not had any such problem so nurse was advised to restart his Eliquis today. Detail s were discussed with the patient's . We will continue to follow with Dr. Wilson. I will see him tomorrow for followup. JANICE/MODL Voice ID: [id number] Report ID: [id number]
--- NOTE | 2021-02-23 12:13 | PN ---
Date of Progress Note: 02/23/2021 Subjective: The patient was seen this morning for followup. He was lying in bed, awake, alert, not in distress, on nasal cannula oxygen at 3 L/minute, maintaining adequate oxygenation around 95% to 96% while I was with him. His was with him at bedside. He denies any complaints. Objective: HEENT: Unremarkable. Lungs: Clear to auscultation. Heart: Sounds normal. Abdomen: Soft. Bowel sounds normal. No guarding, rigidity, tenderness, or distention. Extremity: No leg edema. Chest: Shows presence of crepitation over upper anterior chest wall upon palpation indicating presence of subcutaneous emphysema. Laboratory Data: White count 13.8, hemoglobin 14.1, platelets 274. Sodium 139, potassium 4.5, chloride 107, bicarb 27, BUN 26, creatinine 0.64, glucose 186. Followup chest x-ray shows unchanged bilateral pulmonary opacities with pneumomediastinum remains unchanged, but there is questionable right apical pneumothorax small on today's chest x-ray. Impression: 1. COVID-19 infection. 2. COVID-19 pneumonia. 3. Acute respiratory failure with hypoxia. 4. Pneumomediastinum. 5. Pneumothorax. Plan: Details were discussed with Dr. Wilson. We will go ahead and continue current management. The patient is maintaining adequate oxygenation on 2-3 L nasal cannula oxygen and we can start actually discharge planning process now. I did talk to the patient's and informed her that in next day or 2 days, we might be able to discharge him depending on the patient's condition. We will go ahead and repeat chest x-ray tomorrow and no need for any further intervention for pneumomediastinum or possible small right apical pneumothorax. We will follow up with serial chest x-ray. Continue current anticoagulation therapy. The patient does not have any evidence of hematuria, none yesterday during daytime and none at nighttime. JANICE/MODL Voice ID: [id number] Report ID: [id number] MICHAELA
--- NOTE | 2021-02-23 13:12 | P.PN ---
Subjective Date of Service: 02/23/21 Chief Complaint: Respiratory failure from coronavirus Patient is doing well is alert oriented responsive cooperative 2 L of nasal cannula oxygen Review of Systems 10-point ROS is otherwise unremarkable Physical Examination - Vital Signs Temperature: 98.6 F Blood Pressure: 130/59 Pulse: 71 Respirations: 20 Pulse Ox (%): 96 - Physical Exam General: Alert, Oriented x3, Cooperative Assessment & Plan - Problems (Diagnosis) (1) Pneumonia due to coronavirus disease 2019 Current Visit: Yes Status: Acute Plan: Patient is doing well no new complaints he is only on 2 L of nasal cannula oxygen chest x-ray reviewed patient has subcutaneous emphysema questionable a right apical pneumothorax recommend plan for discharge tomorrow white count is declining
[2021-02-23] MEDS: ROPINIROLE HCL 0.25 MG TAB PO SCH (19:33)
[2021-02-23] MEDS: QUETIAPINE 25 MG TAB PO SCH ×2 (19:34)
[2021-02-23] MEDS: DONEPEZIL HCL 5 MG TAB PO SCH (19:35)
[2021-02-23] MEDS: BIMATOPROST OPHTH DROPS/2.5 ML BTL OPTH SCH (19:37)
[2021-02-24] MEDS: INSULIN -REGULAR HUMAN 50 UNIT/0.5 ML ML SQ SCH ×4 (07:30→20:54)
--- NOTE | 2021-02-24 07:37 | RAD REPORT ---
EXAM DESCRIPTION: RAD - Chest Single View - 02/24/2021 6:46 am CLINICAL HISTORY: Pneumomediastinum COMPARISON: Chest Single View dated 02/23/2021; Chest Single View dated 02/22/2021; Chest Single View da milly 02/22/2021; Chest Single View dated 02/21/2021 FINDINGS: Lines: Left subclavian approach PICC with tip overlying the SVC. Lungs: Mild to moderate unchanged bilateral airspace disease. Pleural: Left mid lung and basilar pneumothorax which is increased from yesterday. Cardiac: The heart size is within normal limits. Bones: No acute fractures. Other: Subcutaneous emphysema. IMPRESSION: New/enlarging moderate left basilar pneumothorax. Mild to moderate bilateral airspace di sease is similar to prior.
[2021-02-24] MEDS: APIXABAN 5 MG TABLET PO SCH ×2 (09:00→20:28)
[2021-02-24] MEDS: FENOFIBRATE 160 MG TAB PO SCH (09:00)
[2021-02-24] MEDS ORDERED: LIDOCAINE 1% MPF 5 ML VIAL SQ ONE ×2 (09:00→10:00)
[2021-02-24] MEDS: ASPIRIN EC 81 MG TAB PO SCH (09:00)
[2021-02-24] MEDS: ASCORBIC ACID 500 MG TABLET PO SCH (09:04)
[2021-02-24] MEDS: ZINC SULFATE 220 MG CAP PO SCH (09:04)
[2021-02-24] MEDS: VITAMIN D 1000 UNIT TAB PO SCH (09:04)
[2021-02-24] MEDS: lisinopriL 5 MG TAB PO SCH ×2 (09:05→21:00)
[2021-02-24] MEDS: FAMOTIDINE 20 MG TAB PO SCH ×2 (09:05→20:27)
[2021-02-24] MEDS: levoFLOXacin 500 MG TAB PO SCH (09:05)
[2021-02-24] MEDS: METOPROLOL XL 25 MG TAB PO SCH (09:05)
[2021-02-24] MEDS: FLUCONAZOLE 100 MG TAB PO SCH (09:06)
[2021-02-24] MEDS: METHYLPREDNISOLONE 40 MG INJ IV SCH ×2 (09:06→20:27)
[2021-02-24] MEDS: MEMANTINE HCL 10 MG TABLET PO SCH ×2 (09:06→20:27)
--- NOTE | 2021-02-24 09:39 | P.OP ---
Preoperative diagnosis: LEFT Pneumothorax Postoperative diagnosis: LEFT Pneumothorax Primary procedure: Placement of LEFT Thoracostomy Tube Anesthesia: Local 1% Lidocaine Estimated blood loss: <2cc Specimen: none Findings: air returned immediately Complications: None Drain(s): Other (18 Fr THAL chest tube) Transferred to: Other (Floor) Condition: Fair
--- NOTE | 2021-02-24 10:38 | OP ---
Date of Procedure: 02/24/2021 Surgeon: Noble Stephenson MD, Preoperative Diagnosis: Left pneumothorax. Postoperative Diagnosis: Left pneumothorax. Procedure Performed: Placement of left thoracostomy tube. Anesthesia: Lidocaine 1% without epinephrine used. Estimated Blood Loss: Less than 2 mL. Specimen: None. Findings: Air returned immediately. Complications: None. Drains: An 18-Bulgarian Thal chest tube placed in the left thoracic space. Disposition: The patient remained in the floor in fair condition throughout the procedure. Procedure In Detail: After informed consent was obtained from patient and patient's , the patient was prepped and draped in the usual sterile fashion after adequate anesthesia was achieved with 1% lidocaine in the area of the left fifth and sixth intercostal space and anterior axillary line. I performed a sima incision overlying this area, inserted the finer needle overlying the rib, and into the thoracic cavity. Air was immediately returned. At this point, I advanced this guidewire and removed the needle. At this point, I performed sequential dilatation using Seldinger technique and ultimately placed an 18- Bulgarian thoracostomy tube into the thoracic space pointing cranially posteriorly and I removed the wire at this point. I attached the Pneumevac pleural system and noted to be tightly at this point with good air movement. At this point, I secured the tube to the chest with the attached 2-0 nylon suture and a sterile dressing placed over top. The patient tolerated the procedure well without complication, remained in the floor in fair condition throughout the procedure. All counts were correct at the end of the case. EDWIN/MYRNA Voice ID: [id number] Report ID: [id number] MICHAELA
--- NOTE | 2021-02-24 10:38 | CON ---
Date of Consultation: 02/24/2021 Brief History Of Present Illness: The patient is a 80-year-old male with a history of dementia, who was noted to have worsening progressive cough, and shortness of breath over 2-day history prior to hi s arrival on 02/07 at an outside facility, he had noted to be positive for COVID-19 pneumonia and was given methylprednisone, Zithromax, and cough medication. He had a monoclonal antibody treatment at [facility] after he was diagnosed. He ultimately came to the ER with COVID-19 pneumonia with continued pro gression of his symptoms as such he was admitted to the hospital and had been relatively stable throu ghout his convalescence. However, noted on chest x-ray this morning was an increasing left-sided pne umothorax as such I was consulted for placement of thoracostomy tube. Past Medical History: Alzheimer dementia, hypertension, diabetes, hyperlipidemia, diverticulosis, BP H, history of ITP. Past Surgical History: Cataract surgery, appendectomy, arthroscopic knee surgery, wrist fracture. Home Medications: Include aspirin, atorvastatin, Lumigan, donepezil, lisinopril, amantadine, metopro lol, Requip. Allergies: TO SULFA. Review of Systems: Ten-point review of systems other than HPI, currently denies. Social History: He does have a positive social history for smoking and alcohol intermittently and so cially only. Physical Examination: General: At the time examination, he is awake, alert, and conversive, but had decreased insight. HEENT: Otherwise normocephalic. Sclerae were anicteric. Mucous membranes were moist. Oropharynx c lear. Neck: Supple without JVD. Chest: Decreased breath sounds on the left. Abdomen: Soft, nontender. Extremities: No clubbing, cyanosis, edema. Laboratory Data: He had a laboratory exam, which revealed a white blood cell count of 13.8, hemoglob in is 14.1, hematocrit 42.4, platelet count is 275, neutrophils are 92%. His sodium 139, potassium 4 .5, chloride 107, carbon dioxide 27, BUN 26, creatinine 0.6, his glucose was 186. He had a chest x-r ay performed, which was officially read today as new/enlarging moderate left basilar pneumothorax, mi ld to moderate bilateral airspace disease is similar to prior. Assessment And Plan: This is a 80-year-old male, who comes in with COVID pneumonia and a left-sided pneumothorax. 1.Continue medical management. 2.I have explained the risks, benefits, and alternatives of placement of a thoracostomy tube on the left to the patient and his , including but not limited to bleeding, infection, damage to surroun ding tissues including lung, heart, great vessels, and need for further operation and procedures. Th e patient agrees as indicated. EDWIN/MYRNA Voice ID: [id number] Report ID: [id number]
[2021-02-24] MEDS: GLUCERNA SHAKE 237 ML CAN PO SCH ×2 (11:00→20:28)
--- NOTE | 2021-02-24 12:17 | PN ---
Date of Progress Note: 02/24/2021 Subjective: The patient was seen this morning for followup. No new complaints or problems reported by the patient lying in bed. This morning, routine chest x-ray had shown left-sided pneumothorax abo ut 50% as reported by Dr. Wilson, and the patient had a chest tube placement this morning prior to my arrival for this reason. The patient is maintaining adequate oxygenation on nasal cannula oxygen 2-3 L/minute with oxygen saturation around 95% or so when I saw him in the hospital today. His was at bedside. Objective: HEENT: Unremarkable except left cheek has probably small area of soft tissue swelling on the left cheek area. No crepitation. No tenderness. Skin: Normal overlying skin color and temperature and it is nontender. Lungs: Clear to auscultation with presence of chest tube on the left side. Heart: Sounds normal. Abdomen: Soft. Bowel sounds normal. No guarding, rigidity, tenderness, or distention. Extremities: No leg edema. Impression: 1.COVID-19 infection. 2.COVID-19 pneumonia. 3.Acute respiratory failure with hypoxia. 4.Pneumothorax, left side, status post chest tube placement. 5.Pneumomediastinum. Plan: We will go ahead and continue current medication. Continue to follow with Dr. Wilson. We w ill go ahead and continue current steroid antibiotic and continue current anticoagulation therapy. W e will see him tomorrow for followup. We will start discharge planning. Hopefully once this pneumot horax problem gets resolved, we can plan to discharge him, and we can start discharge planning proces s. The patient's has requested hospital bed and wheelchair and we will also request home health care services, home physical therapy, and occupational therapy services. Possible discharge to go home on Thursday or . JANICE/MODL Voice ID: [id number] Report ID: [id number]
--- NOTE | 2021-02-24 18:31 | RAD REPORT ---
EXAM DESCRIPTION: RAD - Chest Single View - 02/24/2021 5:06 pm CLINICAL HISTORY: LEFT Thoracostomy tube placement COMPARISON: Chest Single View dated 02/24/2021; Chest Single View dated 02/23/2021; Chest Single View da milly 02/22/2021; Chest Single View dated 02/22/2021 FINDINGS: Interval placement of a left-sided chest tube. The tip terminates medially near the left c lavicle. Decrease in size but not resolve left basilar pneumothorax. Subcutaneous emphysema again not ed. Patchy multifocal airspace disease bilaterally is similar. IMPRESSION: Interval placement of left-sided chest tube with decreased but not complete resolution o f the left-sided basilar pneumothorax.
[2021-02-24] MEDS: DONEPEZIL HCL 5 MG TAB PO SCH (20:27)
[2021-02-24] MEDS: QUETIAPINE 25 MG TAB PO SCH ×2 (20:27→20:28)
[2021-02-24] MEDS: BIMATOPROST OPHTH DROPS/2.5 ML BTL OPTH SCH ×2 (20:28→21:00)
[2021-02-24] MEDS: ROPINIROLE HCL 0.25 MG TAB PO SCH (20:28)
--- NOTE | 2021-02-24 21:05 | P.PN ---
Subjective Date of Service: 02/24/21 Chief Complaint: Pneumothorax Patient developed penumothorax on the left Side SP Chest tube insertion / Stable Review of Systems General: Weakness Respiratory: Shortness of Breath Physical Examination - Vital Signs Temperature: 99.1 F Blood Pressure: 133/65 Pulse: 70 Respirations: 24 Pulse Ox (%): 96 - Physical Exam General: Alert, Oriented x3, Cooperative Assessment & Plan - Problems (Diagnosis) (1) Pneumonia due to coronavirus disease 2018 Current Visit: Yes Status: Acute Plan: StabelOxygenation satisfactory (2) Acute pneumothorax Current Visit: Yes Status: Acute Plan: Develpoed Left side pneumothorax. SP chest tube oxygenation satisfactory CW chest tube on suction for now/ Depending on air leak and chest expansion may consider a hemlich valve prior to DC
[2021-02-25] MEDS: INSULIN -REGULAR HUMAN 50 UNIT/0.5 ML ML SQ SCH ×4 (07:30→21:01)
[2021-02-25] MEDS: METOPROLOL XL 25 MG TAB PO SCH (08:11)
[2021-02-25] MEDS: lisinopriL 5 MG TAB PO SCH ×2 (08:11→21:01)
[2021-02-25] MEDS: GLUCERNA SHAKE 237 ML CAN PO SCH ×2 (09:00→20:08)
--- NOTE | 2021-02-25 09:11 | RAD REPORT ---
EXAM DESCRIPTION: Dee Single View02/25/2021 6:34 am CLINICAL HISTORY: Shortness breath COMPARISON: February 24, 2021 FINDINGS: Left chest tube remains in place. PICC line within the superior vena cava. No significant change in the left pneumothorax which appears small to moderate. Mild improvement in the bilateral pulmonary opacities. No significant change in pneumomediastinum and subcutaneous emphysema Equivocal small right pneumothorax IMPRESSION: Left chest tube in place. A small to moderate left pneumothorax without significant lester ge Equivocal small right pneumothorax
[2021-02-25] MEDS: VITAMIN D 1000 UNIT TAB PO SCH (09:47)
[2021-02-25] MEDS: ASPIRIN EC 81 MG TAB PO SCH (09:47)
[2021-02-25] MEDS: levoFLOXacin 500 MG TAB PO SCH (09:47)
[2021-02-25] MEDS: FENOFIBRATE 160 MG TAB PO SCH (09:47)
[2021-02-25] MEDS: ZINC SULFATE 220 MG CAP PO SCH (09:47)
[2021-02-25] MEDS: MEMANTINE HCL 10 MG TABLET PO SCH ×2 (09:48→20:08)
[2021-02-25] MEDS: FLUCONAZOLE 100 MG TAB PO SCH (09:48)
[2021-02-25] MEDS: FAMOTIDINE 20 MG TAB PO SCH ×2 (09:48→20:08)
[2021-02-25] MEDS: ASCORBIC ACID 500 MG TABLET PO SCH (09:48)
[2021-02-25] MEDS: APIXABAN 5 MG TABLET PO SCH ×2 (09:48→20:08)
[2021-02-25] MEDS: METHYLPREDNISOLONE 40 MG INJ IV SCH (09:49)
--- NOTE | 2021-02-25 11:22 | P.PN ---
Subjective Date of Service: 02/25/21 Chief Complaint: Pneumothorax Subjective: Improving (Patient breathing easier, pleasant, @ bedside) Physical Examination - Vital Signs Temperature: 97.6 F Blood Pressure: 107/58 Pulse: 63 Respirations: 16 Pulse Ox (%): 97 - Physical Exam General: Alert, In no apparent distress, Cooperative HEENT: Mucous membr. moist/pink Respiratory: Normal air movement, Other (LEFT chest tube in place, very small air leak, insertion site is clean and dry) Assessment And Plan - Current Problems (Diagnosis) (1) Acute pneumothorax Current Visit: Yes Status: Acute Plan: - continue continuous suction - daily chest x ray - incentive spirometry - oxygen supplementation - continue medical management
--- NOTE | 2021-02-25 11:37 | P.PN ---
Subjective Date of Service: 02/25/21 Chief Complaint: Pneumothorax and coronavirus pneumonia Patient is doing well no complaints has minimal air leak on the chest tube no pneumothorax Review of Systems General: Weakness Respiratory: Shortness of Breath Physical Examination - Vital Signs Temperature: 97.6 F Blood Pressure: 107/58 Pulse: 63 Respirations: 16 Pulse Ox (%): 97 - Physical Exam General: Alert, Cooperative Assessment & Plan - Problems (Diagnosis) (1) Pneumonia due to coronavirus disease 2018 Current Visit: Yes Status: Acute Plan: Currently stable minimal oxygen requirement changed to p.o. prednisone (2) Acute pneumothorax Current Visit: Yes Status: Acute Plan: Pminimal air leak still has a small pneumothorax increase chest tube suction if he remains stable we will take him off suction tomorrow and possibly consider Heimlich valve
[2021-02-25] MEDS ORDERED: predniSONE 20 MG TAB PO SCH (12:00)
[2021-02-25] MEDS: DONEPEZIL HCL 5 MG TAB PO SCH (20:08)
[2021-02-25] MEDS: ROPINIROLE HCL 0.25 MG TAB PO SCH (20:08)
[2021-02-25] MEDS: predniSONE 20 MG TAB PO SCH (20:08)
[2021-02-25] MEDS: BIMATOPROST OPHTH DROPS/2.5 ML BTL OPTH SCH ×2 (20:08→21:00)
[2021-02-25] MEDS: QUETIAPINE 25 MG TAB PO SCH ×2 (20:08)
--- NOTE | 2021-02-25 20:39 | PN ---
Date of Progress Note: 02/25/2021 Subjective: The patient was evaluated today via tele visit that included audio and video component. His was present with him at bedside. He is on nasal cannula oxygen at 2-3 L/minute and maintai ikra adequate oxygenation. He was not in any respiratory distress. Denied any chest pain or any carol rtness of breath. Objective: Vital Signs: Reviewed. Laboratory Data: Reviewed. Chest x-ray today shows left-sided pneumothorax, unchanged. There is qu estionable right apical small pneumothorax. Impression: 1.COVID-19 infection. 2.COVID-19 pneumonia. 3.Acute respiratory failure with hypoxia. 4.Pneumothorax. 5.Pneumomediastinum. Plan: Details were discussed with Dr. Wilson regarding today's x-ray results and we will continue to follow up. He will repeat another x-ray tomorrow. The patient is stable at this point. We will continue current oxygen replacement therapy, steroids and diabetes will be managed with insulin slidi ng scale. I will see him tomorrow for followup. Details also were discussed with the patient's and the patient. JANICE/MODL Voice ID: [id number] Report ID: [id number]
[2021-02-26 05:14] LABS: Absolute Lymphocytes (CBC) 0.6 K/uL (0.7-4.9); Basophils % 0.2 % (0-1.3); Hematocrit 41.5 % (39.6-49.0); Lymphocytes % 3.4 % (15.3-44.8); RBC Red Blood Cell Count 4.72 M/uL (4.33-5.43)
[2021-02-26 05:36] LABS: ALT/SGPT 22 U/L (12-78); AST/SGOT 14 U/L (15-37); Albumin 2.3 g/dL (3.4-5.0); Alkaline Phosphatase 51 U/L (45-117); BUN Blood Urea Nitrogen 27 mg/dL (7-18); Bicarbonate 29 mmol/L (21-32); Bilirubin Total 0.5 mg/dL (0.2-1.0); Glucose Level 195 mg/dL (74-106); Magnesium 2.4 mg/dL (1.8-2.4); Potassium 4.6 mmol/L (3.5-5.1); Protein, Total 5.7 g/dL (6.4-8.2); Sodium Level 137 mmol/L (136-145)
[2021-02-26 05:49] LABS: C-Reactive Protein < 2.90 mg/L (<3.00)
[2021-02-26] MEDS: ACETAMINOPHEN 325 MG TABLET PO PRN (05:49)
[2021-02-26] MEDS: INSULIN -REGULAR HUMAN 50 UNIT/0.5 ML ML SQ SCH ×4 (07:30→20:24)
--- NOTE | 2021-02-26 08:01 | RAD REPORT ---
EXAM DESCRIPTION: RAD - Chest Single View - 02/26/2021 5:50 am CLINICAL HISTORY: pneumonia, chest tube COMPARISON: Chest Single View dated 02/25/2021; Chest Single View dated 02/24/2021; Chest Single View da milly 02/24/2021; Chest Single View dated 02/23/2021 FINDINGS: Lines: Left-sided chest tube in similar positioning. Left subclavian approach PICC with ti p overlying the SVC. Lungs: Patchy ill-defined bilateral airspace disease is similar. Pleural: Small residual left basilar pneumothorax. Cardiac: The heart size is within normal limits. Bones: No acute fractures. Other: Subcutaneous emphysema and pneumomediastinum again noted. IMPRESSION: Left chest tube in place with slight decreased small left basilar pneumothorax. Multifoc al airspace disease is similar and compatible with multifocal pneumonia.
[2021-02-26] MEDS: METOPROLOL XL 25 MG TAB PO SCH (09:00)
[2021-02-26] MEDS: GLUCERNA SHAKE 237 ML CAN PO SCH ×2 (09:00→20:25)
[2021-02-26] MEDS: lisinopriL 5 MG TAB PO SCH ×2 (09:00→20:23)
[2021-02-26] MEDS: predniSONE 20 MG TAB PO SCH (10:04)
[2021-02-26] MEDS: ZINC SULFATE 220 MG CAP PO SCH (10:04)
[2021-02-26] MEDS: ASCORBIC ACID 500 MG TABLET PO SCH (10:05)
[2021-02-26] MEDS: MEMANTINE HCL 10 MG TABLET PO SCH ×2 (10:05→20:22)
[2021-02-26] MEDS: APIXABAN 5 MG TABLET PO SCH ×2 (10:05→20:22)
[2021-02-26] MEDS: levoFLOXacin 500 MG TAB PO SCH (10:05)
[2021-02-26] MEDS: VITAMIN D 1000 UNIT TAB PO SCH (10:06)
[2021-02-26] MEDS: FENOFIBRATE 160 MG TAB PO SCH (10:06)
[2021-02-26] MEDS: ASPIRIN EC 81 MG TAB PO SCH (10:06)
[2021-02-26] MEDS: FAMOTIDINE 20 MG TAB PO SCH ×2 (10:06→20:25)
[2021-02-26] MEDS: FLUCONAZOLE 100 MG TAB PO SCH (10:07)
--- NOTE | 2021-02-26 14:04 | P.PN ---
Subjective Date of Service: 02/26/21 Chief Complaint: Pneumothorax and coronavirus pneumonia Doing well/ at bedside Review of Systems General: Weakness Respiratory: Shortness of Breath Physical Examination - Vital Signs Temperature: 97.1 F Blood Pressure: 119/60 Pulse: 79 Respirations: 16 Pulse Ox (%): 95 - Physical Exam General: Alert, Oriented x3, Cooperative Assessment & Plan - Problems (Diagnosis) (1) Pneumonia due to coronavirus disease 2018 Current Visit: Yes Status: Acute Plan: Doing well on NC o2 (2) Acute pneumothorax Current Visit: Yes Status: Acute Plan: Doign well/ No air leak. Chest expanded/ DC chest tube suction. xray at 3 pm and then am/ poss removalof tube and DC
--- NOTE | 2021-02-26 15:44 | RAD REPORT ---
EXAM DESCRIPTION: RAD - Chest Single View - 02/26/2021 3:34 pm CLINICAL HISTORY: Lung parenchymal disease, pneumothorax, chest tube COMPARISON: February 26 TECHNIQUE: AP portable chest image was obtained 02/26/2021 3:34 pm . FINDINGS: Left-sided chest tube remains in place with the tip medial left upper lung field just supe rior to the aortic arch. Minimal remnant lateral base pneumothorax present similar to comparison. The amount of subcutaneous emphysema has not changed. Bibasilar interstitial stranding is present. This has not changed. Opacification mid left chest is sl ightly improved. Left-side PICC line is unchanged. Cardiomediastinal silhouette has not changed. Heart and vasculature are normal. No new pleural effusi on. No acute bony abnormality seen. No acute aortic findings suspected. IMPRESSION: Stable chest as detailed.
[2021-02-26] MEDS: QUETIAPINE 25 MG TAB PO SCH ×2 (20:22→20:25)
[2021-02-26] MEDS: ROPINIROLE HCL 0.25 MG TAB PO SCH (20:23)
[2021-02-26] MEDS: predniSONE 10 MG TAB PO SCH (20:25)
[2021-02-26] MEDS: BIMATOPROST OPHTH DROPS/2.5 ML BTL OPTH SCH (20:25)
[2021-02-26] MEDS: DONEPEZIL HCL 5 MG TAB PO SCH (20:27)
--- NOTE | 2021-02-26 22:16 | PN ---
Date of Progress Note: 02/26/2021 Subjective: The patient was seen this morning for followup. No new complaints, problems reported by him. Lying in bed, not in distress. Chest tube present and left hemithorax. Denies any new compla ints. He is on nasal cannula oxygen 2-3 L/minute, maintaining adequate oxygenation of 97% while I wa s in the room with him this morning. Objective: VITAL SIGNS: Reviewed. HEENT: Unremarkable. LUNGS: Clear to auscultation. CARDIAC: Heart sounds normal. ABDOMEN: Soft, bowel sounds normal. No guarding, rigidity, tenderness, distention. EXTREMITIES: No leg edema. SKIN: Presence of subcutaneous emphysema on the anterior chest wall less compared to before. Laboratory Data: White count 16.4, hemoglobin 14, platelets 271. Sodium 137, potassium 4.6, chlorid e 103, bicarb 29, BUN 27, creatinine 0.69, glucose 195. Liver function tests unremarkable. CRP less than 2.90. Impression: 1.COVID-19 infection. 2.COVID-19 pneumonia. 3.Acute respiratory failure with hypoxia. 4.Pneumomediastinum. 5.Pneumothorax, left side, status post chest tube placement. Plan: Today's chest x-ray results reviewed. We will continue to follow with Dr. Wilson for chest tube management. I will see him tomorrow for followup we will repeat chest x-ray tomorrow and possib le discharge to go home soon as Dr. Wilson takes care of his pneumothorax problem. Details were discu ssed with the patient's . JANICE/MODL Voice ID: [id number] Report ID: [id number]
--- NOTE | 2021-02-27 07:16 | RAD REPORT ---
[facility]11 [facility] CLINICAL HISTORY: Chest pain COMPARISON: February 26, 2021 FINDINGS: A left chest tube remains in place with small pneumothorax. Equivocal minimal right pneumothorax Pneumomediastinum and subcutaneous emphysema persists. No significant change bilateral pulmonary opacities.
[2021-02-27] MEDS: INSULIN -REGULAR HUMAN 50 UNIT/0.5 ML ML SQ SCH ×4 (07:30→21:00)
[2021-02-27] MEDS: ZINC SULFATE 220 MG CAP PO SCH (08:28)
[2021-02-27] MEDS: FENOFIBRATE 160 MG TAB PO SCH (08:28)
[2021-02-27] MEDS: ASCORBIC ACID 500 MG TABLET PO SCH (08:28)
[2021-02-27] MEDS: FLUCONAZOLE 100 MG TAB PO SCH (08:28)
[2021-02-27] MEDS: levoFLOXacin 500 MG TAB PO SCH (08:28)
[2021-02-27] MEDS: ASPIRIN EC 81 MG TAB PO SCH (08:28)
[2021-02-27] MEDS: VITAMIN D 1000 UNIT TAB PO SCH (08:28)
[2021-02-27] MEDS: MEMANTINE HCL 10 MG TABLET PO SCH ×2 (08:28→21:25)
[2021-02-27] MEDS: predniSONE 10 MG TAB PO SCH ×2 (08:29→21:25)
[2021-02-27] MEDS: APIXABAN 5 MG TABLET PO SCH ×2 (08:29→21:25)
[2021-02-27] MEDS: FAMOTIDINE 20 MG TAB PO SCH ×2 (08:29→21:28)
[2021-02-27] MEDS: GLUCERNA SHAKE 237 ML CAN PO SCH ×2 (08:29→21:00)
[2021-02-27] MEDS: METOPROLOL XL 25 MG TAB PO SCH (08:30)
[2021-02-27] MEDS: lisinopriL 5 MG TAB PO SCH ×2 (08:30→21:00)
[2021-02-27] MEDS: ACETAMINOPHEN 325 MG TABLET PO PRN ×2 (11:56→23:19)
--- NOTE | 2021-02-27 17:00 | P.PN ---
Subjective Date of Service: 02/27/21 Chief Complaint: Pneumothorax and coronavirus pneumonia Weak and SOB/ Air leak noticed onchest tube Review of Systems General: Weakness Respiratory: Shortness of Breath Physical Examination - Vital Signs Temperature: 97.9 F Blood Pressure: 109/57 Pulse: 83 Respirations: 20 Pulse Ox (%): 95 - Physical Exam General: Alert, Oriented x3, Cooperative, Mild distress Assessment & Plan - Problems (Diagnosis) (1) Pneumonia due to coronavirus disease 2018 Current Visit: Yes Status: Acute Plan: Doing well on NC o2 (2) Acute pneumothorax Current Visit: Yes Status: Acute Plan: Mild leak on chest tube/ Suction reinstated for now
[2021-02-27] MEDS: QUETIAPINE 25 MG TAB PO SCH ×2 (21:00→21:32)
[2021-02-27] MEDS: ROPINIROLE HCL 0.25 MG TAB PO SCH (21:00)
[2021-02-27] MEDS: BIMATOPROST OPHTH DROPS/2.5 ML BTL OPTH SCH (21:00)
[2021-02-27] MEDS: DONEPEZIL HCL 5 MG TAB PO SCH (21:23)
--- NOTE | 2021-02-27 21:52 | PN ---
Date of Progress Note: 02/27/2021 Subjective: Patient was seen this morning for followup. No new complaints or problems reported. He was lying in bed, not in any distress. Objective: Vital Signs: Reviewed. HEENT: Examination unremarkable. Lungs: Clear to auscultation. Heart: Sounds normal. Abdomen: Soft, bowel sounds normal. No guarding, rigidity, tenderness, or distention. Extremities: No leg edema. Impression: 1.Coronavirus disease 2019 infection. 2.Coronavirus disease 2019 pneumonia. 3.Acute respiratory failure with hypoxia. 4.Pneumothorax. 5.Pneumomediastinum. Plan: We will continue current medication. Continue oxygen replacement therapy. He is on 2-3 L serena al cannula oxygen, maintaining adequate oxygenation. Chest tube is in place. We will continue to fo llow with Dr. Wilson. Continue current anticoagulation therapy. Continue current steroid antibiot ic. I would see him tomorrow for followup. JANICE/MODL Voice ID: [id number] Report ID: [id number]
[2021-02-28 06:54] LABS: Absolute Lymphocytes (CBC) 0.6 K/uL (0.7-4.9); Basophils % 0.2 % (0-1.3); Hematocrit 42.5 % (39.6-49.0); Lymphocytes % 4.9 % (15.3-44.8); RBC Red Blood Cell Count 4.82 M/uL (4.33-5.43)
[2021-02-28 07:21] LABS: ALT/SGPT 18 U/L (12-78); AST/SGOT 14 U/L (15-37); Albumin 2.3 g/dL (3.4-5.0); Alkaline Phosphatase 52 U/L (45-117); BUN Blood Urea Nitrogen 26 mg/dL (7-18); Bicarbonate 28 mmol/L (21-32); Bilirubin Total 0.5 mg/dL (0.2-1.0); Glucose Level 184 mg/dL (74-106); Magnesium 2.2 mg/dL (1.8-2.4); Potassium 4.5 mmol/L (3.5-5.1); Protein, Total 5.7 g/dL (6.4-8.2); Sodium Level 135 mmol/L (136-145)
[2021-02-28] MEDS: INSULIN -REGULAR HUMAN 50 UNIT/0.5 ML ML SQ SCH ×4 (07:30→19:56)
--- NOTE | 2021-02-28 07:37 | RAD REPORT ---
EXAM DESCRIPTION: RAD - Chest Single View - 02/28/2021 5:07 am CLINICAL HISTORY: pneumonia, chest tube COMPARISON: February 27February 26 TECHNIQUE: AP portable chest image was obtained 02/28/2021 5:07 am . FINDINGS: Chest tube position is stable. Left-sided PICC line remains in place. Left-sided pneumothorax has not changed in size. There remains an equivocal apical pneumothorax on th e right. Subcutaneous emphysema has not changed. Minimal pneumomediastinum is suspected in but not clearly a p rogressive process. Bilateral lung parenchymal opacification similar to prior imaging. Heart size is stable. Pulmonary vasculature within normal limits. No new or enlarging pleural effusi on. IMPRESSION: Stable chest from February 26 study with details of the body of the report.
[2021-02-28] MEDS: VITAMIN D 1000 UNIT TAB PO SCH (08:48)
[2021-02-28] MEDS: METOPROLOL XL 25 MG TAB PO SCH (08:48)
[2021-02-28] MEDS: FLUCONAZOLE 100 MG TAB PO SCH (08:48)
[2021-02-28] MEDS: ZINC SULFATE 220 MG CAP PO SCH (08:49)
[2021-02-28] MEDS: ASCORBIC ACID 500 MG TABLET PO SCH (08:49)
[2021-02-28] MEDS: lisinopriL 5 MG TAB PO SCH ×2 (08:49→19:55)
[2021-02-28] MEDS: APIXABAN 5 MG TABLET PO SCH ×2 (08:50→19:55)
[2021-02-28] MEDS: FAMOTIDINE 20 MG TAB PO SCH ×2 (08:50→19:55)
[2021-02-28] MEDS: GLUCERNA SHAKE 237 ML CAN PO SCH ×2 (08:50→20:55)
[2021-02-28] MEDS: FENOFIBRATE 160 MG TAB PO SCH (08:50)
[2021-02-28] MEDS: levoFLOXacin 500 MG TAB PO SCH (08:50)
[2021-02-28] MEDS: MEMANTINE HCL 10 MG TABLET PO SCH ×2 (08:50→19:55)
[2021-02-28] MEDS: ASPIRIN EC 81 MG TAB PO SCH (08:50)
[2021-02-28] MEDS: predniSONE 10 MG TAB PO SCH ×2 (08:50→19:55)
[2021-02-28 09:19] LABS: Blood Morphology Comment NOT SEEN (NOT SEEN); Platelet Estimate ADEQ
[2021-02-28] MEDS: QUETIAPINE 25 MG TAB PO SCH ×2 (19:54→19:55)
[2021-02-28] MEDS: DONEPEZIL HCL 5 MG TAB PO SCH (19:54)
[2021-02-28] MEDS: ROPINIROLE HCL 0.25 MG TAB PO SCH (19:56)
[2021-02-28] MEDS: ACETAMINOPHEN 325 MG TABLET PO PRN (20:12)
[2021-02-28] MEDS: BIMATOPROST OPHTH DROPS/2.5 ML BTL OPTH SCH (20:55)
[2021-03-01 04:52] LABS: Absolute Lymphocytes (CBC) 0.7 K/uL (0.7-4.9); Basophils % 0.4 % (0-1.3); Hematocrit 40.3 % (39.6-49.0); Lymphocytes % 5.6 % (15.3-44.8); MPV 7.8 fL (7.6-11.3); RBC Red Blood Cell Count 4.64 M/uL (4.33-5.43)
[2021-03-01 05:17] LABS: ALT/SGPT 17 U/L (12-78); AST/SGOT 11 U/L (15-37); Albumin 2.2 g/dL (3.4-5.0); Alkaline Phosphatase 51 U/L (45-117); BUN Blood Urea Nitrogen 23 mg/dL (7-18); Bicarbonate 28 mmol/L (21-32); Bilirubin Total 0.5 mg/dL (0.2-1.0); Glucose Level 184 mg/dL (74-106); Magnesium 2.3 mg/dL (1.8-2.4); Potassium 4.5 mmol/L (3.5-5.1); Protein, Total 5.6 g/dL (6.4-8.2); Sodium Level 133 mmol/L (136-145)
--- NOTE | 2021-03-01 06:19 | PN ---
Date of Progress Note: 02/28/2021 Subjective: Patient was seen this morning for followup. No new complaints or problems reported by h im. Lying in bed, not in any distress. He is on nasal cannula between 2 to 3 L/minute, maintaining adequate oxygenation. Objective: Vital Signs: Reviewed. HEENT: Unremarkable. Lungs: Clear to auscultation. Heart: Sounds normal. Abdomen: Soft. Bowel sounds normal. No guarding, rigidity, tenderness, or distention. Extremities: No leg edema. Laboratory Data: White count 13.2, hemoglobin 14, platelets 252. Sodium 135, potassium 4.5, chlorid e 103, bicarb 28, BUN 26, creatinine 0.70, glucose 184. Liver function tests unremarkable. CRP 11.1 . Impression: 1.COVID-19 infection. 2.COVID-19 pneumonia. 3.Acute respiratory failure with hypoxia. 4.Pneumothorax. 5.Pneumomediastinum. Plan: We will go ahead and continue to follow with Dr. Wilson and Dr. Stephenson. Patient has chest tube in the left side. Today's chest x-ray result reviewed. We will go ahead and continue current m edical management. We will follow up with these 2 physicians once we resolve the chest tube problem, the our plan will be to discharge him to go home with home oxygen. Continue current diabetes manage ment, current steroid therapy, and oxygen replacement therapy. Details were discussed with patient's . JANICE/MODL Voice ID: [id number] Report ID: [id number]
--- NOTE | 2021-03-01 07:20 | RAD REPORT ---
EXAM DESCRIPTION: RAD - Chest Single View - 03/01/2021 6:03 am CLINICAL HISTORY: pneumonia, chest tube COMPARISON: Chest Single View dated 02/28/2021; Chest Single View dated 02/27/2021; Chest Single View da milly 02/26/2021; Chest Single View dated 02/26/2021 FINDINGS: Lines: Left-sided chest tube in similar positioning. Left subclavian approach PICC in maxine lar position with tip overlying the superior cavoatrial junction. Lungs: Patchy multifocal airspace disease is similar to prior. Pleural: No definite residual pneumothorax on left side identified. No right-sided pneumothorax is ap preciated. Cardiac: Similar pneumomediastinum. Bones: No acute fractures. Other: Subcutaneous emphysema again noted . IMPRESSION: Similar aeration of the lungs with mild to moderate bilateral airspace disease consisten t with multifocal pneumonia. Left chest tube in place. No significant residual pneumothorax.
[2021-03-01] MEDS: INSULIN -REGULAR HUMAN 50 UNIT/0.5 ML ML SQ SCH ×4 (07:30→21:00)
[2021-03-01 08:00] LABS: Urine Appearance CLEAR (Clear); Urine Bilirubin NEGATIVE (Negative); Urine Blood 3+ (Negative); Urine Color YELLOW (Yellow); Urine Glucose NEGATIVE (Negative); Urine Protein NEGATIVE (Negative); Urine Urobilinogen 0.2 mg/dL (0.2-1.0)
[2021-03-01] MEDS: FAMOTIDINE 20 MG TAB PO SCH ×2 (08:11→20:33)
[2021-03-01] MEDS: MEMANTINE HCL 10 MG TABLET PO SCH ×2 (08:11→20:33)
[2021-03-01] MEDS: ASPIRIN EC 81 MG TAB PO SCH (08:11)
[2021-03-01] MEDS: ASCORBIC ACID 500 MG TABLET PO SCH (08:11)
[2021-03-01] MEDS: FLUCONAZOLE 100 MG TAB PO SCH (08:11)
[2021-03-01] MEDS: APIXABAN 5 MG TABLET PO SCH ×2 (08:11→20:33)
[2021-03-01] MEDS: lisinopriL 5 MG TAB PO SCH ×2 (08:12→20:34)
[2021-03-01] MEDS: FENOFIBRATE 160 MG TAB PO SCH (08:13)
[2021-03-01 08:14] LABS: Urine Bacteria NONE SEEN /HPF (NONE SEEN); Urine RBC >50 /HPF (NONE SEEN)
[2021-03-01] MEDS: GLUCERNA SHAKE 237 ML CAN PO SCH ×2 (08:14→20:34)
[2021-03-01] MEDS: METOPROLOL XL 25 MG TAB PO SCH (08:14)
[2021-03-01] MEDS: VITAMIN D 1000 UNIT TAB PO SCH (08:25)
[2021-03-01] MEDS: predniSONE 10 MG TAB PO SCH ×2 (08:25→20:33)
[2021-03-01] MEDS: ZINC SULFATE 220 MG CAP PO SCH (08:26)
--- NOTE | 2021-03-01 09:30 | P.PN ---
Subjective Date of Service: 02/26/21 Chief Complaint: Pneumothorax and coronavirus pneumonia Subjective: No new changes (patient feels generally well with dyspnea on exertion) Physical Examination - Vital Signs Temperature: 97.4 F Blood Pressure: 108/57 Pulse: 71 Respirations: 18 Pulse Ox (%): 96 - Physical Exam General: Alert, In no apparent distress, Cooperative Respiratory: Diminished, Other (chest tube on LEFT in place, minimal air leak) Assessment And Plan - Current Problems (Diagnosis) (1) Acute pneumothorax Current Visit: Yes Status: Acute Plan: - continue continuous suction - daily chest x ray - incentive spirometry - oxygen supplementation - continue medical management
--- NOTE | 2021-03-01 09:31 | P.PN ---
Subjective Date of Service: 02/28/21 Chief Complaint: Pneumothorax and coronavirus pneumonia Subjective: No new changes Physical Examination - Vital Signs Temperature: 97.4 F Blood Pressure: 108/57 Pulse: 71 Respirations: 18 Pulse Ox (%): 96 - Physical Exam General: Alert, In no apparent distress, Cooperative Respiratory: Diminished (chest tube on LEFT in place, minimal air leak) Assessment And Plan - Current Problems (Diagnosis) (1) Acute pneumothorax Current Visit: Yes Status: Acute Plan: - continue continuous suction - daily chest x ray - incentive spirometry - oxygen supplementation - continue medical management
--- NOTE | 2021-03-01 09:31 | P.PN ---
Subjective Date of Service: 02/27/21 Chief Complaint: Pneumothorax and coronavirus pneumonia Subjective: No new changes Physical Examination - Vital Signs Temperature: 97.4 F Blood Pressure: 108/57 Pulse: 71 Respirations: 18 Pulse Ox (%): 96 - Physical Exam General: Alert, In no apparent distress, Cooperative Respiratory: Diminished (chest tube on LEFT in place, minimal air leak) Assessment And Plan - Current Problems (Diagnosis) (1) Acute pneumothorax Current Visit: Yes Status: Acute Plan: - continue continuous suction - daily chest x ray - incentive spirometry - oxygen supplementation - continue medical management
--- NOTE | 2021-03-01 09:32 | P.PN ---
Subjective Date of Service: 03/01/21 Chief Complaint: Pneumothorax and coronavirus pneumonia Subjective: No new changes Physical Examination - Vital Signs Temperature: 97.4 F Blood Pressure: 108/57 Pulse: 71 Respirations: 18 Pulse Ox (%): 96 - Physical Exam General: Alert, In no apparent distress, Cooperative Respiratory: Diminished (chest tube on LEFT in place, minimal air leak) Assessment And Plan - Current Problems (Diagnosis) (1) Acute pneumothorax Current Visit: Yes Status: Acute Plan: - continue continuous suction - daily chest x ray - incentive spirometry - oxygen supplementation - continue medical management
[2021-03-01] MEDS ORDERED: FENTANYL CITR 100 MCG/2 ML IV ONE (10:07)
[2021-03-01] MEDS: [UNRECOGNIZED DRUG - OTHER] TOP SCH ×2 (10:59)
[2021-03-01] MEDS ORDERED: NA CHLORIDE 0.9% TOP ONE ×2 (11:00)
[2021-03-01] MEDS ORDERED: LIDOCAINE 2% TOP SCH ×2 (11:00)
[2021-03-01] MEDS ORDERED: LIDOCAINE 2% TOP ONE ×2 (11:00)
[2021-03-01] MEDS ORDERED: POVIDONE-IODINE 20 ML, NA CHLORIDE 0.9% 80 ML TOP SCH ×2 (11:00)
[2021-03-01] MEDS ORDERED: LIDOCAINE 2% INJ, 20 mL 10 ML, NA CHLORIDE 0.9% 40 ML TOP SCH ×2 (11:00)
[2021-03-01] MEDS ORDERED: NA CHLORIDE 0.9% TOP SCH ×2 (11:00)
[2021-03-01] MEDS: ONDANSETRON 4 MG/2 ML VIAL IV PRN (11:10)
--- NOTE | 2021-03-01 13:05 | P.PN ---
Subjective Date of Service: 03/01/21 Chief Complaint: Pneumothorax and coronavirus pneumonia Doing well no complaints week minimal air leak Review of Systems General: Weakness Respiratory: Shortness of Breath Physical Examination - Vital Signs Temperature: 97.4 F Blood Pressure: 108/57 Pulse: 71 Respirations: 18 Pulse Ox (%): 96 - Physical Exam General: Alert, Oriented x3, Cooperative Assessment & Plan - Problems (Diagnosis) (1) Pneumonia due to coronavirus disease 2018 Current Visit: Yes Status: Acute Plan: Doing well oxygen ordered possible discharge tomorrow (2) Acute pneumothorax Current Visit: Yes Status: Acute Plan: S/p iodine pleurodesis probably remove the chest tube tomorrow discussed with
--- NOTE | 2021-03-01 13:07 | P.OP ---
Date of Service: 03/01/21 (Left-sided iodine pleurodesis) Findings and Operative Technique Patient is 80 years of age presented with a pneumothorax he continues to have a very small air leak chest is fully expanded iodine pleurodesis on the left side was performed as per protocol patient tolerated the procedure very well plan to clamp the chest tube for 4 hours unclamp like to drain DC chest tube suction at midnight stable removal tomorrow
[2021-03-01] MEDS: QUETIAPINE 25 MG TAB PO SCH ×2 (20:32→20:33)
[2021-03-01] MEDS: DONEPEZIL HCL 5 MG TAB PO SCH (20:33)
[2021-03-01] MEDS: ROPINIROLE HCL 0.25 MG TAB PO SCH (20:33)
[2021-03-01] MEDS: ACETAMINOPHEN 325 MG TABLET PO PRN (20:33)
[2021-03-01] MEDS: BIMATOPROST OPHTH DROPS/2.5 ML BTL OPTH SCH (21:00)
[2021-03-01] MEDS ORDERED: MORPHINE 2 MG/ML SYR IV PRN (21:49)
[2021-03-02] MEDS: ACETAMINOPHEN 325 MG TABLET PO PRN (01:57)
[2021-03-02] MEDS: INSULIN -REGULAR HUMAN 50 UNIT/0.5 ML ML SQ SCH ×3 (07:30→16:45)
[2021-03-02] MEDS: ASCORBIC ACID 500 MG TABLET PO SCH (08:01)
[2021-03-02] MEDS: predniSONE 10 MG TAB PO SCH (08:01)
[2021-03-02] MEDS: ZINC SULFATE 220 MG CAP PO SCH (08:01)
[2021-03-02] MEDS: FAMOTIDINE 20 MG TAB PO SCH (08:01)
[2021-03-02] MEDS: ASPIRIN EC 81 MG TAB PO SCH (08:01)
[2021-03-02] MEDS: VITAMIN D 1000 UNIT TAB PO SCH (08:01)
[2021-03-02] MEDS: MEMANTINE HCL 10 MG TABLET PO SCH (08:02)
[2021-03-02] MEDS: FENOFIBRATE 160 MG TAB PO SCH (08:02)
[2021-03-02] MEDS: lisinopriL 5 MG TAB PO SCH (08:02)
[2021-03-02] MEDS: METOPROLOL XL 25 MG TAB PO SCH (08:03)
[2021-03-02] MEDS: APIXABAN 5 MG TABLET PO SCH (08:03)
[2021-03-02] MEDS: FLUCONAZOLE 100 MG TAB PO SCH (08:03)
[2021-03-02] MEDS: GLUCERNA SHAKE 237 ML CAN PO SCH (08:04)
--- NOTE | 2021-03-02 08:23 | RAD REPORT ---
EXAM DESCRIPTION: RAD - Chest Single View - 03/02/2021 6:48 am CLINICAL HISTORY: chest tube, pleural effusion COMPARISON: Chest Single View dated 03/01/2021; Chest Single View dated 02/28/2021; Chest Single View d ated 02/27/2021; Chest Single View dated 02/26/2021; Chest For Pe Angio dated 02/13/2021 FINDINGS: Lines: Left chest tube in similar positioning. Left subclavian approach PICC with tip over lying the SVC. Lungs: Mild increase widespread airspace disease with focal opacification along the left lateral ches t wall. Pleural: Tiny residual left pneumothorax. Cardiac: The heart size is within normal limits. Bones: No acute fractures. Other: Subcutaneous emphysema. IMPRESSION: Mild increased opacities in the left lung base compared with 03/01/2021. The diffuse air space disease is otherwise unchanged. Left chest tube in place with tiny residual pneumothorax.
--- NOTE | 2021-03-02 09:07 | RAD REPORT ---
EXAM DESCRIPTION: RAD - Chest Single View - 03/02/2021 8:51 am CLINICAL HISTORY: chest tube COMPARISON: Chest Single View dated 03/02/2021; Chest Single View dated 03/01/2021; Chest Single View dated 02/28/2021; Chest Single View dated 02/27/2021 FINDINGS: Similar aeration of the lungs compared with 2 hours prior. Chest tube in similar position as is the PICC. No appreciable pneumothorax identified. IMPRESSION: Aeration of the lungs is similar to earlier in the day. No definite residual pneumothora x.
--- NOTE | 2021-03-02 10:54 | P.PN ---
Subjective Date of Service: 03/02/21 Chief Complaint: Pneumothorax and coronavirus pneumonia Subjective: Improving (patient is currently off oxygen, breathing easier) Physical Examination - Vital Signs Temperature: 97.0 F Blood Pressure: 105/57 Pulse: 67 Respirations: 20 Pulse Ox (%): 20 - Physical Exam General: Alert, In no apparent distress, Cooperative Respiratory: Other (LEFT chest tube in place) Assessment And Plan - Current Problems (Diagnosis) (1) Acute pneumothorax Current Visit: Yes Status: Acute Plan: - patient had pleurodesis yesterday, will remove chest tube @ bedside today - daily chest x ray - incentive spirometry - oxygen supplementation - continue medical management
[2021-03-02] MEDS: [UNRECOGNIZED DRUG - OTHER] TOP SCH ×2 (11:00)
--- NOTE | 2021-03-02 11:26 | PN ---
Date of Progress Note: 03/01/2021 Subjective: Patient was seen this morning for followup. No new complaints or problems reported by [place]. Lying in bed, not in distress. He is on nasal cannula oxygen 1-2 L/minute. Objective: Vital Signs: Reviewed. HEENT: Unremarkable. Lungs: Clear to auscultation. Heart: Sounds normal. Abdomen: Soft. Bowel sounds normal. No guarding, rigidity, tenderness, or distention. Extremities: No leg edema. Laboratory Data: White count 12.9, hemoglobin 13.5, platelets 260. Sodium 133, potassium 4.5, chlor ritchie 100, bicarb 28, BUN 23, creatinine 0.7, glucose 184. Liver function tests unremarkable. CRP 19. 1. Impression: 1.COVID-19 infection. 2.COVID-19 pneumonia. 3.Acute respiratory failure with hypoxia. 4.Pneumothorax. 5.Pneumomediastinum. Plan: We will go ahead and continue to follow with Dr. Wilson and he has done pleurodesis today. Hopefully, we can remove his chest tube tomorrow. Meanwhile, continue current prednisone and other c urrent medical management. Possible discharge either tomorrow or day after tomorrow depending on his condition. JANICE/MODL Voice ID: [id number] Report ID: [id number]
[2021-03-02 15:10] VITALS: O2SAT 90
--- NOTE | 2021-03-02 16:01 | RAD REPORT ---
EXAM DESCRIPTION: RAD - Chest Single View - 03/02/2021 2:22 pm CLINICAL HISTORY: chest tube removal COMPARISON: Chest Single View dated 03/02/2021; Chest Single View dated 03/02/2021; Chest Single View dated 03/01/2021; Chest Single View dated 02/28/2021 FINDINGS: Interval removal of the left-sided chest tube. No appreciable pneumothorax identified. Pat mari airspace disease bilaterally. IMPRESSION: Interval removal of left-sided chest tube. No significant residua pneumothorax.
[2021-03-02 16:25] VITALS: BP 132/61; TEMP 98.1
== END 2021-03-02 19:27 | disposition home health service (06) | DRG 177 ==
LOC: ER 13:21 → ERHOLD 17:14 → 4TH 02-15 07:40
PROVIDERS: ADMIT Internal Medicine; ATTEND Internal Medicine
PROC: 02HV33Z Insertion of Infusion Device into Superior Vena Cava, Percutaneous Approach (ICD-10-PCS; 2021-02-22)
PROC: 0W9B30Z Drainage of Left Pleural Cavity with Drainage Device, Percutaneous Approach (ICD-10-PCS; principal; 2021-02-24)
PROC: 3E0L3GC Introduction of Other Therapeutic Substance into Pleural Cavity, Percutaneous Approach (ICD-10-PCS; 2021-03-01)
DX: U07.1 COVID-19 (principal); J12.82 Pneumonia due to coronavirus disease 2019; J96.01 Acute respiratory failure with hypoxia; J93.9 Pneumothorax, unspecified; J98.2 Interstitial emphysema; G30.9 Alzheimer's disease, unspecified; F02.80 Dementia in other diseases classified elsewhere, unspecified severity, without behavioral disturbance, psychotic disturbance, mood disturbance, and anxiety; I10 Essential (primary) hypertension; E11.9 Type 2 diabetes mellitus without complications; E78.2 Mixed hyperlipidemia; K57.90 Diverticulosis of intestine, part unspecified, without perforation or abscess without bleeding; N40.0 Benign prostatic hyperplasia without lower urinary tract symptoms
CPT/HCPCS: 36415; 36569; 70450; 71045; 71046; 71275; 80048; 80053; 80076; 81001; 81003; 82550; 82553; 82565; 82728; 82805; 82947; 83735; 83880; 84484; 85025; 85610; 86140; 87040; 87086; 87088; 93005; 93306; 94760; 96372; 97116; 97161; 97530; 99285; J0456; J1630; J1940; J2270; J2405; J2920; J2930; J3010; J7050; J7512; Q9967; U0003

== ENCOUNTER 2021-03-11 19:01 | Emergency (ER) | payer OTHER ==
--- NOTE | 2021-03-11 21:58 | ER ---
Nurse's Notes [facility] Name: Otto Murguia Age: 80 yrs Sex: Male : 1940 Arrival Date: 03/11/2021 Time: 19:03 Bed 2 Private MD: Diagnosis: Coronavirus infection, unspecified Presentation: 03/11 20:06 Chief complaint: Patient states: Pt states he has been monitoring his O2 at home and wg states it was in the mid 80's at home. Pt was admitted here for Covid/pneumonia and discharged a week ago. Pt states he gets SOB on exertion. Pt's O2 sat on 2L in triage 96%. Pt is on O2 at home. Coronavirus screen: Vaccine status: Patient reports receiving the 2nd dose of the covid vaccine. Date August 20, 2020 Client reports previous positive COVID test result. Date of collection: March 03, 2021. Ebola Screen: Patient negative for fever greater than or equal to 101.5 degrees Fahrenheit, and additional compatible Ebola Virus Disease symptoms Patient denies exposure to infectious person. Patient denies travel to an Ebola-affected area in the 21 days before illness onset. No symptoms or risks identified at this time. Initial Sepsis Screen: Does the patient meet any 2 criteria? No. Patient's initial sepsis screen is negative. Does the patient have a suspected source of infection? No. Patient's initial sepsis screen is negative. Risk Assessment: Do you want to hurt yourself or someone else? Patient reports no desire to harm self or others. Onset of symptoms was March 10, 2021. 20:06 Method Of Arrival: Ambulatory 20:06 Acuity: GARRETT 3 Triage Assessment: 20:13 General: Appears uncomfortable, slender, Behavior is calm, cooperative, appropriate for wg age. Pain: Denies pain. Respiratory: Reports shortness of breath on exertion Onset: The symptoms/episode began/occurred yesterday, the patient has mild shortness of breath. Historical: - Allergies: 20:11 Codeine; wg - PMHx: 20:11 Glaucoma; Dementia; Hypertensive disorder; wg - Immunization history:: Adult Immunizations up to date. - Social history:: Smoking status: Patient denies any tobacco usage or history of. - Family history:: not pertinent. Screenin:03 Abuse screen: Denies threats or abuse. Nutritional screening: No deficits noted. cw2 Tuberculosis screening: No symptoms or risk factors identified. Fall Risk None identified. Ambulatory Aid- Crutches/Cane/Walker (15 pts). Mental Status- Oriented to own ability (0 pts). Assessment: 22:03 Cardiovascular: No deficits noted. Rhythm is regular. Respiratory: Airway Breath sounds cw2 are clear bilaterally. 22:04 Respiratory: Respiratory effort is. cw2 Vital Signs: 20:06 BP 114 / 69; Pulse 85; Resp 18; Temp 98.4; Pulse Ox 96% ; Weight 62.6 kg; Height 5 ft. 9 in. (175.26 cm); Pain 0/10; 22:05 BP 112 / 72; Pulse 81; Resp 17; Pulse Ox 97% on R/A; Pain 0/10; cw2 20:06 Body Mass Index 20.38 (62.60 kg, 175.26 cm) ED Course: 19:03 Patient arrived in ED. rg4 20:11 Triage completed. 20:14 Arm band placed on right wrist. 21:48 Miguelangel Gorman MD is Attending Physician. [facility] 22:02 Prashant Sidhu, RN is Primary Nurse. cw2 22:04 Patient has correct armband on for positive identification. Call light in reach. Side cw2 rails up X2. 22:04 No provider procedures requiring assistance completed. Patient did not have IV access cw2 during this emergency room visit. Administered Medications: No medications were administered Outcome: 21:57 Discharge ordered by . [facility] 22:04 Discharged to home via wheelchair, with family. cw2 22:04 Condition: good 22:04 Discharge instructions given to patient, family. 22:06 Patient left the ED. cw2 Signatures: Miguelangel Gorman MD MD cha Garcia, Rubi 4 Turner Long RN Prashant Sidhu, JESSICA RN cw2
--- NOTE | 2021-03-11 21:58 | EDPHYS ---
Physician Documentation [facility] Name: Otto Murguia Age: 80 yrs Sex: Male : 1940 Arrival Date: 03/11/2021 Time: 19:03 Bed 2 Private MD: ED Physician Miguelangel Gorman HPI: 03/11 21:54 This 80 yrs old Male presents to ER via Ambulatory with complaints of Low O2, mariluz Breathing Difficulty. 21:54 The patient has shortness of breath with light activity. Onset: The symptoms/episode mariluz began/occurred 2 week(s) ago. Duration: The symptoms are intermittent, with no pattern. The patient's shortness of breath has no apparent modifying factors. Associated signs and symptoms: The patient has no apparent associated signs or symptoms. Severity of symptoms: At their worst the symptoms were mild in the emergency department the symptoms are unchanged. The patient has experienced similar episodes in the past, several times. 21:59 patient and miss read pulse ox and hr monitor. mariluz Historical: - Allergies: 20:11 Codeine; wg - PMHx: 20:11 Glaucoma; Dementia; Hypertensive disorder; wg - Immunization history:: Adult Immunizations up to date. - Social history:: Smoking status: Patient denies any tobacco usage or history of. - Family history:: not pertinent. ROS: 21:54 Constitutional: Negative for fever, chills, and weight loss, Eyes: Negative for injury, mariluz pain, redness, and discharge, ENT: Negative for injury, pain, and discharge, Neck: Negative for injury, pain, and swelling, Cardiovascular: Negative for chest pain, palpitations, and edema, Abdomen/GI: Negative for abdominal pain, nausea, vomiting, diarrhea, and constipation, Back: Negative for injury and pain, : Negative for injury, bleeding, discharge, and swelling, MS/Extremity: Negative for injury and deformity, Skin: Negative for injury, rash, and discoloration, Neuro: Negative for headache, weakness, numbness, tingling, and seizure, Psych: Negative for depression, anxiety, suicide ideation, homicidal ideation, and hallucinations, Allergy/Immunology: Negative for hives, rash, and allergies, Endocrine: Negative for neck swelling, polydipsia, polyuria, polyphagia, and marked weight changes, Hematologic/Lymphatic: Negative for swollen nodes, abnormal bleeding, and unusual bruising. 21:54 Respiratory: Positive for shortness of breath, per baseline. Exam: 21:54 Constitutional: This is a well developed, well nourished patient who is awake, alert, mariluz and in no acute distress. Head/Face: Normocephalic, atraumatic. Eyes: Pupils equal round and reactive to light, extra-ocular motions intact. Lids and lashes normal. Conjunctiva and sclera are non-icteric and not injected. Cornea within normal limits. Periorbital areas with no swelling, redness, or edema. ENT: Nares patent. No nasal discharge, no septal abnormalities noted. Tympanic membranes are normal and external auditory canals are clear. Oropharynx with no redness, swelling, or masses, exudates, or evidence of obstruction, uvula midline. Mucous membranes moist. Neck: Trachea midline, no thyromegaly or masses palpated, and no cervical lymphadenopathy. Supple, full range of motion without nuchal rigidity, or vertebral point tenderness. No Meningismus. Chest/axilla: Normal chest wall appearance and motion. Nontender with no deformity. No lesions are appreciated. Cardiovascular: Regular rate and rhythm with a normal S1 and S2. No gallops, murmurs, or rubs. Normal PMI, no JVD. No pulse deficits. Respiratory: Lungs have equal breath sounds bilaterally, clear to auscultation and percussion. No rales, rhonchi or wheezes noted. No increased work of breathing, no retractions or nasal flaring. Abdomen/GI: Soft, non-tender, with normal bowel sounds. No distension or tympany. No guarding or rebound. No evidence of tenderness throughout. Back: No spinal tenderness. No costovertebral tenderness. Full range of motion. Male : Normal genitalia with no discharge or lesions. Skin: Warm, dry with normal turgor. Normal color with no rashes, no lesions, and no evidence of cellulitis. MS/ Extremity: Pulses equal, no cyanosis. Neurovascular intact. Full, normal range of motion. Neuro: Awake and alert, GCS 15, oriented to person, place, time, and situation. Cranial nerves II-XII grossly intact. Motor strength 5/5 in all extremities. Sensory grossly intact. Cerebellar exam normal. Normal gait. Psych: Awake, alert, with orientation to person, place and time. Behavior, mood, and affect are within normal limits. Vital Signs: 20:06 BP 114 / 69; Pulse 85; Resp 18; Temp 98.4; Pulse Ox 96% ; Weight 62.6 kg; Height 5 ft. 9 in. (175.26 cm); Pain 0/10; 22:05 BP 112 / 72; Pulse 81; Resp 17; Pulse Ox 97% on R/A; Pain 0/10; cw2 20:06 Body Mass Index 20.38 (62.60 kg, 175.26 cm) MDM: 21:48 Patient medically screened. [facility] 21:58 Differential diagnosis: Anxiety Reaction. Antibiotic administration: Not indicated. The mariluz patient's Wells Deep Vein Thrombosis Score was calculated as follows: Total Score: 0-2 Pts- Low Risk. The patient's pulmonary embolism risk score was calculated as follows: Total Score: 0-2 points. This patient was found to be at low risk for a pulmonary embolism by using the Well's assessment criteria. Immunization status: Pneumococcal vaccine: Influenza vaccine: Data reviewed: vital signs, nurses notes. Data interpreted: monitor technician: not applicable for this patient encounter. rate is 85 beats/min, rhythm is regular, Pulse oximetry: on room air is 96 %. 03/11 20:15 Order name: Cardiac monitoring; Complete Time: 21:58 03/11 20:15 Order name: IV Saline Lock 03/11 20:15 Order name: Labs collected and sent 03/11 20:15 Order name: O2 Per Protocol 03/11 20:15 Order name: O2 Sat Monitoring Administered Medications: No medications were administered Disposition Summary: 03/11/21 21:57 Discharge Ordered Location: Home mariluz Problem: new mariluz Symptoms: have improved mariluz Condition: Stable mariluz Diagnosis - Coronavirus infection, unspecified mariluz Followup: mariluz - With: Private Physician - When: 2 - 3 days - Reason: Recheck today's complaints, Continuance of care, Re-evaluation by your physician Discharge Instructions: - Discharge Summary Sheet mariluz - COVID-19 mariluz - COVID-19 Frequently Asked Questions mariluz Forms: - Medication Reconciliation Form mariluz - Thank You Letter mariluz - Antibiotic Education mariluz - Prescription Opioid Use mariluz Signatures: Dispatcher [employer] EDMiguelangel Bradford MD MD cha Gamba, Liam RN Nahum, Christopher, RN RN cw2 Corrections: (The following items were deleted from the chart) 20:15 EKG - Nurse/Tech ordered. yifan mcgraw : 20:15 Urine Dipstick-Ancillary ordered. yifan mcgraw
[2021-03-12 00:17] VITALS: TEMP 98.4
[2021-03-12 00:18] VITALS: BP 112/72; O2SAT 97
== END 2021-03-11 22:06 | disposition home or self-care (01) ==
LOC: ER 19:01
DX: U07.1 COVID-19 (principal); I10 Essential (primary) hypertension; Z88.5 Allergy status to narcotic agent
CPT/HCPCS: 99281

== ENCOUNTER 2022-10-17 12:03 | Emergency (ER) | payer OTHER ==
--- OUTSIDE RECORDS SUMMARY | 2022-10-17 12:05 | XMS REPORT | Continuity of Care Document ---
:1940 Author Organization [facility] t Address [address] [facility] [address] [place] [address] Care Team Providers Name Role Phone HUONG DILL Attending Clinician Unavailable Payers Payer Name Policy Type Policy Number Effective Date Expiration Date S mauro [employer] [id number] 2020 MEDICARE PPO-JORDANA 00:00:00 Problems This patient has no known problems. Allergies, Adverse Reactions, Alerts Allergy Allergy Status Severity Reaction(s) Onset Inactive Treating Comm ents Source Name Type Date Date Clinician CODEINE DRUG Active Unknown-Cmnt Uni vers INGREDI - ity of 00:00: [address] [place] Drug Active Unknown-Cmnt 0 Un katelynn INS Class 02-11 ity of 00:: [address] NO KNOWN Drug Active Univers ALLERGIE Class ity of [facility] Medications This patient has no known medications. Procedures This patient has no known procedures. Encounters Start End Encounter Admission Attending Care Care Encounter Source Date/Time Date/Time Type Type Clinicians Facility Department ID 2021-02-11 2021-02-11 Outpatient [facility] [id number] Univers 15:30:00 15:30:00 [id number] ity [facility] 2021-02-11 2021-02-11 Outpatient R ANIYAH [facility] [id number] Univers [facility]:30[facility] 2021-02-07 Outpatient R [facility] [id number] Univers 14:00:00 14:00:00 [id number] [facility] Results This patient has no known results.
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
--- NOTE | 2022-10-17 13:54 | ER ---
Nurse's Notes [facility] Name: Otto Murguia Age: 82 yrs Sex: Male : 1940 Arrival Date: 10/17/2022 Time: 12:03 Bed 5 Private MD: Diagnosis: Dementia in other diseases classified elsewhere with behavioral disturbance Presentation: 10/17 12:06 Chief complaint: EMS states: "THE CALLED 911 BECAUSE HE GOT VIOLENT WITH HER THIS bp MORNING. HE'S BEEN HAVING MORE RAGES LATELY WITH HIS ALZHEIMER'S. HE HAS NO MEDICAL COMPLAINTS.". Coronavirus screen: At this time, the client does not indicate any symptoms associated with coronavirus-19. Ebola Screen: No symptoms or risks identified at this time. Initial Sepsis Screen: Does the patient meet any 2 criteria? No. Patient's initial sepsis screen is negative. Does the patient have a suspected source of infection? No. Patient's initial sepsis screen is negative. Risk Assessment: Do you want to hurt yourself or someone else? Unable to obtain. Onset of symptoms is unknown. 12:06 Method Of Arrival: EMS: [facility] bp 12:06 Acuity: GARRETT 3 bp Triage Assessment: 12:08 General: Appears in no apparent distress. Behavior is cooperative, anxious. Pain: bp Denies pain. EENT: No deficits noted. Neuro: Level of Consciousness is awake, obeys commands, Oriented to person, place. Cardiovascular: No deficits noted. Respiratory: No deficits noted. GI: No signs and/or symptoms were reported involving the gastrointestinal system. : No signs and/or symptoms were reported regarding the genitourinary system. Derm: No deficits noted. Musculoskeletal: No deficits noted. Historical: - Allergies: 12:08 Codeine; bp 12:08 Sulfa (Sulfonamide Antibiotics); bp - PMHx: 12:08 Alzheimer's disease; Dementia; Glaucoma; Hypertensive disorder; bp - Immunization history:: Adult Immunizations up to date. - Social history:: Smoking status: Patient denies any tobacco usage or history of. Screenin:09 [facility] ED Fall Risk Assessment (Adult) History of falling in the last 3 months, bp including since admission No falls in past 3 months (0 pts). Abuse screen: Denies threats or abuse. Denies injuries from another. Nutritional screening: No deficits noted. Tuberculosis screening: No symptoms or risk factors identified. Assessment: 12:09 General: SEE TRIAGE NOTE. bp 13:11 Reassessment: PT AGITATED, STATING HE'S SUPPOSED TO BE AT WORK. DENYING AGGRESSION WITH bp SPOUSE. SHOE TREER CONTACTED BY PROVIDER. Vital Signs: 12:06 BP 154 / 78; Pulse 94; Resp 18; Temp 98; Pulse Ox 99% ; bp ED Course: 12:05 Patient arrived in ED. bp 12:08 Triage completed. bp 12:08 Margarette Cedillo FNP-C is PHCP. snw 12:08 Jose Luis Smith DO is Attending Physician. snw 12:08 Arm band placed on. bp 12:09 Patient has correct armband on for positive identification. Bed in low position. Call bp light in reach. Side rails up X2. 14:05 Bernie Kne, RN is Primary Nurse. ph 14:05 No provider procedures requiring assistance completed. Patient did not have IV access ph during this emergency room visit. Administered Medications: No medications were administered Medication: 12:09 VIS not applicable for this client. bp Outcome: 13:54 Discharge ordered by MD. snw 14:06 Discharged to home ambulatory, with significant other. ph 14:06 Condition: good 14:06 Discharge instructions given to patient, significant other, Instructed on discharge instructions, follow up and referral plans. Demonstrated understanding of instructions, follow-up care. 14:06 Patient left the ED. ph Signatures: Margarette Cedillo FNP-C DIE HARDENER-Csnw Bernie Ken RN RN ph Ulysses Solorio RN RN bp
[2022-10-17 14:10] VITALS: BP 154/78; TEMP 98; O2SAT 99
== END 2022-10-17 14:06 | disposition home or self-care (01) ==
LOC: ER 12:03
DX: G30.9 Alzheimer's disease, unspecified (principal); F02.811 Dementia in other diseases classified elsewhere, unspecified severity, with agitation; Z88.2 Allergy status to sulfonamides; Z88.5 Allergy status to narcotic agent

== ENCOUNTER 2023-07-08 17:53 | Inpatient (IN) | payer OTHER ==
--- OUTSIDE RECORDS SUMMARY | 2023-07-08 17:56 | XMS REPORT | Continuity of Care Document ---
Author Name Unknown Address [address] [facility] [address] [id number] [facility] thconnect Address [address] [facility] [address] [place] [address] Care Team Providers Care Step Finisher Name Role Phone Saud Hall Primary Care Physician [phone] HUONG DILL Attending Clinician Unavailable Doctor Unassigned, [place] Attending Clinician U navailable Payers Payer Name Policy Type Policy Number Effective Date Expirati on Date Source [employer] MANAGED MEDICARE PPO-JORDANA [id number] 2020 00:00:00 Allergies, Adverse Reactions, Alerts Allergy Name Allergy Type Status Severity Reaction(s) Onset Date Inactive Date Treating Clinician Comments Source CODEINE DRUG INGREDI Active Unknown-Cmnt 02-11 00:00: 00 [facility] PENICILL INS Drug Class Active Unknown-Cmnt 8 00:00: 00 [facility] Codeine Propensi ty to adverse reaction s Active Unknown - See comments 02-11 00:00: 00 [facility] Penicill ins Propensi ty to adverse reaction s Active Unknown - See comments 02-11 00:00: 00 [facility] NO KNOWN ALLERGIE S Drug Class Active [facility] Social History Social Habit Start Date Stop Date Quantity Comments Source Sexual orientation U [facility] Exposure to SARS-CoV-2 (event) 2021-01-08 00:00:00 2021-02-07 14:48:00 Yes [facility] Sex Assigned At 1940 00:00:00 1940 00:00:00 [facility] Smoking Status Start Date Stop Date Source Tobacco smoking consumption unknown [facility] Encounters Start Date/Time End Date/Time Encounter Type Admission Type Attending Clinicians Care Facility Care Department Encounter ID Source 2021-02-11 15:30:00 2021-02-11 15:30:00 Outpatient [facility] [id number] [facility] 2021-02-11 15:30:00 2021-02-11 15:30:00 Outpatient HUONG ROMERO [facility] [id number] [facility] 2021-02-09 00:00:00 2021-02-09 00:00:00 Patient Secure Msg Doctor Unassigned, [place] [facility] [id number] [facility] 2021-02-07 14:00:00 2021-02-07 14:00:00 Outpatient R [facility] [id number] [facility]
[2023-07-08] MEDS ORDERED: CEFEPIME 2 GM VIAL ONE (18:29)
[2023-07-08] MEDS ORDERED: ACETAMINOPHEN 500 MG TAB ONE (18:30)
[2023-07-08] MEDS ORDERED: NA CHLORIDE 0.9% 100 ML ONE (18:30)
[2023-07-08] MEDS ORDERED: NA CHLORIDE 0.9% 1,000 ML ONE (18:30)
[2023-07-08 18:38] LABS: Absolute Lymphocytes (CBC) 1.1 K/uL (0.7-4.9); Lymphocytes % 8.4 % (15.3-44.8); MCV 88.4 fL (80-100); MPV 8.3 fL (7.6-11.3); Platelets 204 thou/uL (152-406); RBC Red Blood Cell Count 4.41 M/uL (4.33-5.43); Specific Gravity 1.013 (1.005-1.030); Urine Bacteria <20 /HPF (<20); Urine Bilirubin NEGATIVE (Negative); Urine Blood 3+ (OVER) (Negative); Urine Clarity Turbid (Clear); Urine Color Light-Yellow (Yellow); Urine Crystals Unidentified Few /HPF (None Seen); Urine Glucose NEGATIVE (Negative); Urine Mucus Slight /HPF (None Seen); Urine Protein NEGATIVE (Negative); Urine RBC >50 /HPF (None Seen); Urine Urobilinogen Normal (Normal); Urine pH 5.5 (5.0-7.0)
[2023-07-08 18:51] LABS: Protime INR 1.2
[2023-07-08 18:57] LABS: Albumin 3.4 g/dL (3.4-5.0); Bilirubin Total 0.5 mg/dL (0.2-1.0); Potassium 4.5 mEq/L (3.5-5.1); Protein, Total 7.3 g/dL (6.4-8.2); Troponin High Sensitivity 11.4 pg/mL (<58.9)
--- NOTE | 2023-07-08 19:16 | RAD REPORT ---
EXAM DESCRIPTION: RAD - Chest Single View - 07/08/2023 6:58 pm CLINICAL HISTORY: COUGH Chest pain. COMPARISON: <Comparisons> FINDINGS: Portable technique limits examination quality. Bilateral lower lobe infiltrate pattern is present, greater on the left, compatible with bibasilar pn eumonia. The heart is normal in size. No displaced fractures. IMPRESSION: Bibasilar pneumonia pattern seen, greater on the left.
--- NOTE | 2023-07-08 19:18 | RAD REPORT ---
EXAM DESCRIPTION: CT - Head Brain Wo Cont - 07/08/2023 7:07 pm CLINICAL HISTORY: ams Headache, drowsiness COMPARISON: <Comparisons> TECHNIQUE: All CT scans are performed using dose optimization technique as appropriate and may inclu de automated exposure control or mA/KV adjustment according to patient size. FINDINGS: No intracranial hemorrhage, hydrocephalus or extra-axial fluid collection.Mild generalized brain atrophy.No areas of brain edema or evidence of midline shift. Mild mucosal thickening of the right maxillary antrum. The paranasal sinuses and mastoids are otherwi se clear. The calvarium is intact. IMPRESSION: No acute intracranial abnormality.
--- NOTE | 2023-07-08 19:29 | ER ---
Nurse's Notes [facility] Name: Otto Murguia Age: 83 yrs Sex: Male : 1940 Arrival Date: 07/08/2023 Time: 17:53 Bed 7 Private MD: Diagnosis: Unspecified bacterial pneumonia;Severe sepsis without septic shock;Altered mental status, unspecified Presentation: 07/08 18:03 Chief complaint: EMS states: the patient has been treated for bronchitis since Thursday ap3 07/06/2023. It is reported by the patients that since then, the patient has had increased confusion and tremors. Coronavirus screen: At this time, the client does not indicate any symptoms associated with coronavirus-19. Ebola Screen: No symptoms or risks identified at this time. Initial Sepsis Screen: Does the patient meet any 2 criteria? RR > 20 per min. Altered Mental Status. HR > 90 bpm. Yes Does the patient have a suspected source of infection? Yes: Productive cough/pneumonia If YES to both, name of provider notified: Timmy Sauer MD. Risk Assessment: Do you want to hurt yourself or someone else? Patient reports no desire to harm self or others. Note Code sepsis called overhead by JESSICA Bowen. Onset of symptoms was July 06, 2023. 18:03 Method Of Arrival: EMS: [facility] ap3 18:03 Acuity: GARRETT 2 ap3 Triage Assessment: 18:06 General: Appears ill, Behavior is cooperative, restless. Neuro: Level of Consciousness ap3 is awake, confused, Oriented to person. Cardiovascular: Patient's skin is warm and dry. Respiratory: Reports cough that is Airway is patent Respiratory effort is even, unlabored, Respiratory pattern is tachypnea. Historical: - Allergies: 18:05 Codeine; ap3 18:05 Sulfa (Sulfonamide Antibiotics); ap3 - PMHx: 18:05 Alzheimer's disease; Dementia; Glaucoma; Hypercholesterolemia; Hypertensive disorder; ap3 - Immunization history:: Adult Immunizations unknown. - Social history:: Smoking status: unknown. Screenin:06 Abuse screen: Denies threats or abuse. Nutritional screening: No deficits noted. ap3 Tuberculosis screening: No symptoms or risk factors identified. 18:52 [facility] ED Fall Risk Assessment (Adult) History of falling in the last 3 months, ph including since admission No falls in past 3 months (0 pts) Confusion or Disorientation Yes (5 pts) Intoxicated or Sedated No (0 pts) Impaired Gait No (0 pts) Mobility Assist Device Used No (0 pt) Altered Elimination Yes (1 pt) Score/Fall Risk Level 3 or more points = High Risk Oriented to surroundings, Maintained a safe environment, Provided non-skid footwear, Hourly rounding (assess needs \T\ fall precautionary measures) done, Used ambulatory aids as needed (educated on \T\ assisted with). Assessment: 18:46 General: Behavior is cooperative, restless, Reports fever for. Pain: Unable to use pain ph scale. Patient is disoriented. Does not appear to understand pain scale. Neuro: Level of Consciousness is awake, obeys commands, confused, Oriented to person. Cardiovascular: Capillary refill < 3 seconds in bilateral fingers Patient's skin is warm and dry. Rhythm is sinus tachycardia. Respiratory: Airway is patent Respiratory pattern is tachypnea Breath sounds are coarse in mediastinum Parent/caregiver reports the patient having cough that is. GI: Patient currently denies diarrhea, vomiting, Parent/caregiver reports the patient having nausea. Derm: Skin is dry, Skin is normal, Skin temperature is hot. Musculoskeletal: Circulation, motion, and sensation intact. Range of motion: intact in all extremities. 19:00 Reassessment: Patient appears in no apparent distress at this time. Patient and/or jb4 family updated on plan of care and expected duration. Pain level reassessed. Pt remains oriented to self. No s/s of pain or distress noted. 20:00 Reassessment: Patient appears in no apparent distress at this time. No changes from jb4 previously documented assessment. Patient and/or family updated on plan of care and expected duration. Pain level reassessed. 21:00 Reassessment: Patient appears in no apparent distress at this time. No changes from jb4 previously documented assessment. Patient and/or family updated on plan of care and expected duration. Pain level reassessed. Vital Signs: 18:03 BP 134 / 93; Pulse 132; Resp 24; Temp 100.4; Pulse Ox 94% on R/A; ap3 18:28 Temp 103.2(O); ph 18:44 Weight 78.93 kg; cm10 18:51 BP 151 / 59; Pulse 109; Resp 32; Pulse Ox 96% on R/A; ph 19:54 Temp 100.1(O); lg3 20:25 BP 101 / 87; Pulse 97; Resp 25; Pulse Ox 93% on R/A; jb4 Vitals: 18:51 Cardiac Rhythm Assessment Sinus tach. ph ED Course: 17:59 Patient arrived in ED. ap3 18:05 Timmy Sauer MD is Attending Physician. rt 18:05 Triage completed. ap3 18:07 Arm band placed on right wrist. ap3 18:07 Patient has correct armband on for positive identification. Placed in gown. Bed in low ap3 position. Call light in reach. Side rails up X2. Adult w/ patient. 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 Pulse ox on. NIBP on. 18:15 Initial lab(s) drawn, by me, sent to lab. First set of blood cultures drawn by , cortez Urine collected: clean catch specimen. Inserted saline lock: 20 gauge in right forearm, using aseptic technique. Blood collected. 18:26 BNP Sent. cm10 18:26 Troponin High Sensitivity Sent. cm10 18:26 Urinalysis w/ reflexes Sent. cm10 18:26 Ptt, Activated Sent. cm10 18:26 Lactate w/ 2H reflex if indic. Sent. cm10 18:26 CMP Sent. cm10 18:26 CBC with Diff Sent. cm10 18:52 Inserted saline lock: 18 gauge in left wrist, using aseptic technique. ph 19:00 Chest Single View XRAY In Process Unspecified. EDMS 19:09 CT Head Brain wo Cont In Process Unspecified. EDMS 19:28 Saud Hall MD is Hospitalizing Provider. rt 21:04 No provider procedures requiring assistance completed. Patient admitted, IV remains in jb4 place. Administered Medications: 18:42 Drug: Acetaminophen PO 1000 mg PO once Route: PO; cm10 18:42 Drug: Cefepime IVPB 2 grams IVPB at 200 ml/hr once over 30 mins; (mix in NS 100 mL) cm10 Route: IVPB; Rate: 200 ml/hr; Infused Over: 30 mins; Site: right forearm; 18:42 Drug: NS 0.9% IV 1000 ml IV at 1 bolus Per protocol; 1000 mL bolus Route: IV; Rate: 1 cm10 bolus; Site: right forearm; 20:07 Drug: LevaQUIN IVPB 750 mg IVPB once Route: IVPB; Site: left forearm; jb4 20:08 Drug: vancoMYCIN IVPB 1 grams IVPB once over 2 hrs Route: IVPB; Infused Over: 2 hrs; jb4 Site: right forearm; Medication: 18:52 VIS not applicable for this client. ph Outcome: 19:29 Decision to Hospitalize by Provider. rt 21:04 Admitted to Med/surg accompanied by tech, via stretcher, room 214, with chart, Report jb4 called to JESSICA Aviles 21:04 Condition: stable 21:04 Discharge instructions given to family, Instructed on the need for admit, Demonstrated understanding of instructions, 21:06 Patient left the ED. iris Signatures: Dispatcher [employer] EDMS Bernie Ken RN RN Kobi Otero RN RN jb4 Jessi Hughes RN RN [email or web address] Darlene Desouza RN RN [email or web address] Timmy Sauer MD MD rt Martinez, Clarissa, RN RN cm10
--- NOTE | 2023-07-08 19:29 | EDPHYS ---
Physician Documentation [facility] Name: Otto Murguia Age: 83 yrs Sex: Male : 1940 Arrival Date: 07/08/2023 Time: 17:53 Bed 7 Private MD: ED Physician Timmy Sauer HPI: 07/08 18:30 This 83 yrs old Male presents to ER via EMS with complaints of AMS. rt 18:30 Patient presents to the ED with altered mental status. Patient does have a history of rt Alzheimer's dementia, with past few days, has been less communicative, more tremulous. The reports that the patient felt warm. Patient has had a cough, congestion, was recently treated for bronchitis with antibiotics, Tessalon, fluticasone by his primary care. Symptoms are worsened today, symptoms are moderate severity, no other aggravating elevating factors.. Historical: - Allergies: 18:05 Codeine; ap3 18:05 Sulfa (Sulfonamide Antibiotics); ap3 - PMHx: 18:05 Alzheimer's disease; Dementia; Glaucoma; Hypercholesterolemia; Hypertensive disorder; ap3 - Immunization history:: Adult Immunizations unknown. - Social history:: Smoking status: unknown. ROS: 18:30 Unable to obtain ROS due to altered mental status, rt Exam: 18:30 Head/Face: Normocephalic, atraumatic. Chest/axilla: Normal chest wall appearance and rt motion. Nontender with no deformity. No lesions are appreciated. Cardiovascular: Regular rate and rhythm with a normal S1 and S2. No gallops, murmurs, or rubs. Normal PMI, no JVD. No pulse deficits. Abdomen/GI: Soft, non-tender, with normal bowel sounds. No distension or tympany. No guarding or rebound. No evidence of tenderness throughout. Skin: Warm, dry with normal turgor. Normal color with no rashes, no lesions, and no evidence of cellulitis. 18:30 Constitutional: The patient appears Confused, redirectable, no acute distress 18:30 ENT: Dry mucous membranes. 18:30 ECG was reviewed by the Attending Physician. 18:30 Respiratory: Coarse breath sounds diffusely, no respiratory distress, Vital Signs: 18:03 BP 134 / 93; Pulse 132; Resp 24; Temp 100.4; Pulse Ox 94% on R/A; ap3 18:28 Temp 103.2(O); ph 18:44 Weight 78.93 kg; cm10 18:51 BP 151 / 59; Pulse 109; Resp 32; Pulse Ox 96% on R/A; ph 19:54 Temp 100.1(O); lg3 20:25 BP 101 / 87; Pulse 97; Resp 25; Pulse Ox 93% on R/A; jb4 MDM: 18:05 Patient medically screened. rt 19:59 Differential Diagnosis Sepsis, pneumonia, UTI, intracranial hemorrhage. rt 20:09 Data reviewed: vital signs, nurses notes, lab test result(s), EKG, radiologic studies. rt Consideration of Admission/Observation Patient was admitted/placed on observation. Management of patient was discussed with the following: Primary Care Provider: Agrees to admit. Independent interpretation of the following test(s) in the Emergency Department X-Ray: My interpretation is Pneumonia seen on interpretation of x-ray images. Test considered but Not performed:. Test considered but Not performed: CT: Low suspicion for PE, CT angiogram not indicated. Care significantly affected by the following chronic conditions: Hypertension. Counseling: I had a detailed discussion with the patient and/or guardian regarding the historical points, exam findings, and any diagnostic results supporting the discharge/admit diagnosis, lab results, radiology results, the need for further work-up and treatment in the hospital. Response to treatment: the patient's symptoms have mildly improved after treatment. 07/08 18:07 Order name: Blood Culture Adult (2) rt 07/08 18:07 Order name: CBC with Diff; Complete Time: 18:46 rt 07/08 18:07 Order name: CMP; Complete Time: 19:22 rt 07/08 18:07 Order name: Lactate w/ 2H reflex if indic.; Complete Time: 19:22 rt 07/08 18:07 Order name: Protime (+inr); Complete Time: 19:22 rt 07/08 18:07 Order name: Ptt, Activated; Complete Time: 19:22 rt 07/08 18:07 Order name: Urinalysis w/ reflexes; Complete Time: 18:46 rt 07/08 18:07 Order name: Troponin High Sensitivity; Complete Time: 19:22 rt 07/08 18:07 Order name: BNP; Complete Time: 19:22 rt 07/08 18:42 Order name: Urine Culture EDMS 07/08 18:07 Order name: Chest Single View XRAY; Complete Time: 19:22 rt 07/08 18:07 Order name: CT Head Brain wo Cont; Complete Time: 19:22 rt 07/08 18:07 Order name: EKG; Complete Time: 18:07 rt 07/08 18:07 Order name: Accucheck; Complete Time: 20:12 rt 07/08 18:07 Order name: Cardiac monitoring; Complete Time: 18: rt 07/08 18:07 Order name: EKG - Nurse/Tech; Complete Time: 18:26 rt 07/08 18:07 Order name: IV Saline Lock - Large Bore; Complete Time: 18:26 rt 07/08 18:07 Order name: Labs collected and sent; Complete Time: 18:26 rt 07/08 18:07 Order name: O2 Per Protocol; Complete Time: 18:07 rt 07/08 18:07 Order name: O2 Sat Monitoring; Complete Time: 18: rt 07/08 18:07 Order name: Vital Signs; Complete Time: 18:07 rt EC:30 Rate is 127 beats/min. Rhythm is regular, Sinus tachycardia with No ectopy, Rate rt related ST and T wave changes. UT interval is normal. QRS interval is normal. QT interval is normal. No Q waves. Administered Medications: 18:42 Drug: Acetaminophen PO 1000 mg PO once Route: PO; cm10 18:42 Drug: Cefepime IVPB 2 grams IVPB at 200 ml/hr once over 30 mins; (mix in NS 100 mL) cm10 Route: IVPB; Rate: 200 ml/hr; Infused Over: 30 mins; Site: right forearm; 18:42 Drug: NS 0.9% IV 1000 ml IV at 1 bolus Per protocol; 1000 mL bolus Route: IV; Rate: 1 cm10 bolus; Site: right forearm; 20:07 Drug: LevaQUIN IVPB 750 mg IVPB once Route: IVPB; Site: left forearm; jb4 20:08 Drug: vancoMYCIN IVPB 1 grams IVPB once over 2 hrs Route: IVPB; Infused Over: 2 hrs; jb4 Site: right forearm; Disposition Summary: 07/08/23 19:29 Hospitalization Ordered Notes: Hospitalization Status: Inpatient Admission rt Provider: Saud Hall rt Location: Telemetry/MedSurg (Inpatient) rt Condition: Fair rt Problem: new rt Symptoms: have improved rt Bed/Room Type: Standard rt Room Assignment: 214(07/08/23 20:30) vk Diagnosis - Unspecified bacterial pneumonia rt - Severe sepsis without septic shock rt - Altered mental status, unspecified rt Forms: - Medication Reconciliation Form rt - SBAR form rt - Leadership Thank You Letter rt Signatures: Dispatcher [employer] Bernie Pena RN RN Kobi Lazo RN RN jb4 Jessi Hughes RN RN ap3 Timmy Sauer MD MD rt Anne Marie Sinclair RN RN cm10 Kelly Vu Corrections: (The following items were deleted from the chart) 20:30 19:29 rt vk
[2023-07-08] MEDS ORDERED: NA CHLORIDE 0.9% 250 ML ONE (19:52)
[2023-07-08] MEDS ORDERED: VANCOMYCIN 1 GM/VIAL ONE (19:52)
[2023-07-08] MEDS ORDERED: Levofloxacin 750mg IV 750 MG/150 ML BAG IV ONE (19:52)
[2023-07-08] MEDS: lisinopriL 10 MG TAB PO SCH (22:17)
[2023-07-08] MEDS: QUETIAPINE 25 MG TAB PO SCH ×2 (22:17→22:39)
[2023-07-08 22:36] VITALS: BMI 22.9
[2023-07-08] MEDS: DONEPEZIL HCL 5 MG TAB PO SCH (22:38)
[2023-07-08] MEDS: NA CHLORIDE 0.9% 1,000 ML IV SCH (22:38)
[2023-07-08] MEDS: ATORVASTATIN 20 MG TAB PO SCH (22:38)
[2023-07-08] MEDS: FAMOTIDINE 20 MG TAB PO SCH (22:38)
[2023-07-08] MEDS: MEMANTINE HCL 10 MG TABLET PO SCH (22:38)
[2023-07-09 05:52] LABS: Potassium 3.9 mEq/L (3.5-5.1)
[2023-07-09 05:58] LABS: Absolute Lymphocytes (CBC) 1.5 K/uL (0.7-4.9); Lymphocytes % 10.6 % (15.3-44.8); MCV 88.3 fL (80-100); MPV 8.4 fL (7.6-11.3); Platelets 186 thou/uL (152-406); RBC Red Blood Cell Count 3.96 M/uL (4.33-5.43)
[2023-07-09] MEDS: CEFEPIME 1 GM in NA CHLORIDE 0.9% 100 ML IV SCH ×3 (06:42→20:43)
[2023-07-09] MEDS: NA CHLORIDE 0.9% 1,000 ML IV SCH ×3 (08:17→20:44)
[2023-07-09] MEDS: Levofloxacin500mg IV 500 MG/100 ML BAG IV SCH (10:24)
[2023-07-09] MEDS: METOPROLOL XL 25 MG TAB PO SCH (10:24)
[2023-07-09] MEDS: MEMANTINE HCL 10 MG TABLET PO SCH ×2 (10:24→20:41)
[2023-07-09] MEDS: ENOXAPARIN 40 MG/0.4 ML SQ SCH (10:24)
[2023-07-09] MEDS: lisinopriL 10 MG TAB PO SCH ×2 (10:24→20:41)
[2023-07-09] MEDS: FAMOTIDINE 20 MG TAB PO SCH (20:40)
[2023-07-09] MEDS: ATORVASTATIN 20 MG TAB PO SCH (20:41)
[2023-07-09] MEDS: DONEPEZIL HCL 5 MG TAB PO SCH (20:41)
[2023-07-10 07:14] LABS: Absolute Lymphocytes (CBC) 1.2 K/uL (0.7-4.9); Hematocrit 34.9 % (39.6-49.0); Lymphocytes % 10.3 % (15.3-44.8); MCV 88.4 fL (80-100); MPV 7.9 fL (7.6-11.3); Platelets 199 thou/uL (152-406); RBC Red Blood Cell Count 3.95 M/uL (4.33-5.43)
[2023-07-10 07:39] LABS: Potassium 3.8 mEq/L (3.5-5.1)
[2023-07-10] MEDS: NA CHLORIDE 0.9% 1,000 ML IV SCH (07:39)
--- NOTE | 2023-07-10 08:06 | RAD REPORT ---
EXAM DESCRIPTION: RADChest Pa And Lat (2 Views)07/10/2023 8:00 am CLINICAL HISTORY: Cough COMPARISON: July 08, 2023 FINDINGS: Worsening in moderate to marked left lung opacities. Probable mild right lung opacities. Heart is normal size IMPRESSION: Worsening in [id number] left lung opacities probably pneumonia
[2023-07-10] MEDS ORDERED: MAGNESIUM HYDROXIDE 8% 30 ML PO ONE (08:50)
[2023-07-10] MEDS: CEFEPIME 1 GM in NA CHLORIDE 0.9% 100 ML IV SCH ×2 (09:38→20:46)
[2023-07-10] MEDS: METOPROLOL XL 25 MG TAB PO SCH (09:39)
[2023-07-10] MEDS: Levofloxacin500mg IV 500 MG/100 ML BAG IV SCH (09:40)
[2023-07-10] MEDS: MEMANTINE HCL 10 MG TABLET PO SCH ×2 (09:40→20:43)
[2023-07-10] MEDS: ENOXAPARIN 40 MG/0.4 ML SQ SCH (09:40)
[2023-07-10] MEDS: lisinopriL 10 MG TAB PO SCH ×2 (09:40→20:42)
[2023-07-10] MEDS: ENSURE HIGH PROTEIN 237 ML CAN PO SCH ×3 (09:41→22:10)
--- NOTE | 2023-07-10 13:36 | HP ---
Date of Admission: 07/08/2023 Chief Complaint: Cough, congestion, and shortness of breath. History Of Present Illness: This is an 83-year-old male patient, came into office a couple of days ago with cough, chest congestion and was started on amoxicillin for acute bronchitis type of symptoms and yesterday contacted and informed us that the patient was having worsening of the symptoms with shortness of breath and she was advised to bring him to emergency room. After he was evaluated in the ER, he was admitted to the hospital with pneumonia. I saw him this morning. was with him at bedside. The patient is not able to answer any questions or details. Allergies: TO SULFA, CODEINE AND TERRAMYCIN. Medications: List reviewed. Review of Systems: Respiratory: As mentioned above. All other systems reviewed and negative. Past Medical History: Significant for mixed alzheimer's disease, hyperlipidemia, hypertension, type 2 diabetes mellitus, benign prostatic hypertrophy, and diverticulosis. Past Surgical History: Appendectomy, arthroscopic knee surgery, and hernia repair. Family History: Significant for diabetes, hypertension, and heart disease. Social History: Prior history of smoking, not at present time. Use of alcohol negative. Physical Examination: Vital Signs: Temperature 99.5, pulse 73, respiratory rate 18, blood pressure 140/63, oxygen saturation 95%. Height 6 feet 1 inch, weight 174 pounds. General: Awake, alert, oriented, not in distress. HEENT: Head atraumatic, normocephalic. Conjunctivae nonerythematous. Sclerae white. Mouth, no thrush or edema noted. Ears/Nose, no mass, lesion, discharge noted. Neck: Supple. No JVD, lymph nodes, bruit, thyromegaly noted. Lungs: The patient has crackles in lower lung field. Not using any accessory muscles of respiration. Heart: Normal heart sounds, no murmur or gallop. Abdomen: Soft, bowel sounds normal. No guarding, rigidity, tenderness, mass, hepatosplenomegaly, distention, or bruit noted. Extremities: No leg edema. No calf tenderness. Skin: No rash, ulcer, cellulitis. Lymphatics: No lymph node enlargement in neck, supraclavicular, infraclavicular region. Neuro: No focal neurological deficit. Chest: Unremarkable. External Genitalia: Deferred. Rectal: Deferred. Labs: Yesterday, white count 12.7, hemoglobin 13.1, and platelet count 204. This morning, white count 14.5, hemoglobin 11.9, platelets 186. Yesterday, sodium 134, potassium 4.5, chloride 104, bicarb 24, BUN 19, creatinine 1.29, glucose 211. Lactic acid 2.1, repeat lactic acid 1.7. Liver function tests unremarkable. This morning, sodium 139, potassium 3.9, chloride 111, bicarb 23, BUN 23, creatinine 1.31, glucose 118. Chest x-ray shows pneumonia. Impression: 1. Pneumonia. 2. Volume depletion. 3. Hypertension. 4. Hyperlipidemia. 5. Type 2 diabetes mellitus. 6. Anemia, unspecified. 7. Alzheimer's disease. Plan: We will go ahead and admit the patient to hospital for further evaluation and management of this problem. The patient is appropriate for inpatient and is expected to spend 2 midnights in hospital. For his pneumonia, we will go ahead and continue IV antibiotics as per order. Monitor him for adequate response, and if necessary, make adjustment on antibiotics. For his hypertension, we will continue his antihypertensive medication as he takes at home and monitor blood pressure, if necessary adjust blood pressure medications. For his hyperlipidemia, we will continue his statin therapy per order and no need for any further intervention on that. We will continue his medications the way he takes at home for his Alzheimer's disease. We will consult Physical Therapy to help ambulate. Continue IV fluid for volume depletion, and I will see him tomorrow for followup. Details and plan of treatment discussed with the patient. JANICE/MYRNA Voice ID: [id number] MICHAELA
[2023-07-10] MEDS: ONDANSETRON 4 MG/2 ML VIAL IV PRN (14:05)
[2023-07-10 16:04] LABS: Specific Gravity 1.011 (1.005-1.030); Urine Bilirubin NEGATIVE (Negative); Urine Blood Negative (Negative); Urine Clarity Clear (Clear); Urine Color Light-Yellow (Yellow); Urine Glucose NEGATIVE (Negative); Urine Protein NEGATIVE (Negative); Urine Urobilinogen Normal (Normal); Urine pH 6.5 (5.0-7.0)
[2023-07-10] MEDS: FAMOTIDINE 20 MG TAB PO SCH (20:42)
[2023-07-10] MEDS: DONEPEZIL HCL 5 MG TAB PO SCH (20:42)
[2023-07-10] MEDS: ATORVASTATIN 20 MG TAB PO SCH (20:43)
[2023-07-11] MEDS: ONDANSETRON 4 MG/2 ML VIAL IV PRN (03:58)
--- NOTE | 2023-07-11 07:42 | PN ---
Date of Progress Note: 07/10/2023 Subjective: The patient was seen this morning for followup. His was with him at bedside, angelita atkins that last night, he was very much confused, had gone home and she had to come back because h eugenia was not resting, very anxious, and restless. After she came and spend night with him, he started t o calm down. Objective: Vital Signs: Reviewed. HEENT: Unremarkable. Lungs: Bilateral good equal air entry. Presence of some rales noted in lower lung field. Not using any accessory muscles of respiration. Heart: Heart sounds normal. Abdomen: Soft. Bowel sounds normal. No guarding, rigidity, tenderness, distention. Extremities: No leg edema. Laboratory Data: White count 11.2, hemoglobin 11.8, platelets 199. Sodium 139, potassium 3.8, chlor ritchie 111, bicarb 22, BUN 14, creatinine 0.99, glucose 110. Impression: 1.Pneumonia. 2.Encephalopathy, toxic. 3.Anemia, unspecified. 4.Hypertension. Plan: We will go ahead and continue current antibiotics. We will have Physical therapy help ambulat e the patient. We will repeat chest x-ray and continue other current home medications. Continue cur rent DVT prophylaxis. Possible discharge to go home over the weekend depending on his condition. JANICE/MODL Voice ID: [id number] Report ID: [id number]
[2023-07-11] MEDS: Levofloxacin500mg IV 500 MG/100 ML BAG IV SCH (10:19)
[2023-07-11] MEDS: ENOXAPARIN 40 MG/0.4 ML SQ SCH (10:19)
[2023-07-11] MEDS: lisinopriL 10 MG TAB PO SCH ×2 (10:20→20:32)
[2023-07-11] MEDS: CEFEPIME 1 GM in NA CHLORIDE 0.9% 100 ML IV SCH ×2 (10:20→20:50)
[2023-07-11] MEDS: ENSURE HIGH PROTEIN 237 ML CAN PO SCH ×3 (10:20→20:33)
[2023-07-11] MEDS: MEMANTINE HCL 10 MG TABLET PO SCH ×2 (10:21→20:32)
[2023-07-11] MEDS: METOPROLOL XL 25 MG TAB PO SCH (10:21)
--- NOTE | 2023-07-11 12:12 | PN ---
Date of Progress Note: 07/11/2023 Subjective: The patient was seen this morning for followup. He was lying in bed sleeping. was present with him at bedside. The patient continues to have restlessness and confusion, worse at nig httime. His appetite is fair to good and he is drinking nutritional supplement as per order. Yester day, he did ambulate with physical therapy. Objective: Vital Signs: Reviewed. HEENT: Unremarkable. Lungs: Bilateral good equal air entry. Presence of some minimal rales noted in lower lung region. Not using accessory muscles of respiration. Heart: Sounds normal. Abdomen: Soft. Bowel sounds normal. No guarding, rigidity, tenderness, distention. Extremities: No leg edema. Impression: 1.Pneumonia. 2.Hypertension. 3.Hyperlipidemia. 4.Type 2 diabetes mellitus. Plan: We will go ahead and continue current antibiotics. We will continue his home medications per order and our plan is to see him tomorrow. Possible discharge to go home tomorrow depending on his c ondition. He is currently on oxygen and we will see if we can wean off oxygen before discharge or no t. If he needs to go home with oxygen, then we will need to make those arrangements also. All the details were discussed with the [place] today. JANICE/MODL Voice ID: [id number] Report ID: [id number]
[2023-07-11] MEDS: ATORVASTATIN 20 MG TAB PO SCH (20:31)
[2023-07-11] MEDS: FAMOTIDINE 20 MG TAB PO SCH (20:32)
[2023-07-11] MEDS: DONEPEZIL HCL 5 MG TAB PO SCH (20:32)
[2023-07-12] MEDS: ENOXAPARIN 40 MG/0.4 ML SQ SCH (08:39)
[2023-07-12] MEDS: CEFEPIME 1 GM in NA CHLORIDE 0.9% 100 ML IV SCH ×2 (08:40→20:27)
[2023-07-12] MEDS: lisinopriL 10 MG TAB PO SCH ×2 (08:40→20:26)
[2023-07-12] MEDS: ENSURE HIGH PROTEIN 237 ML CAN PO SCH ×3 (08:40→20:43)
[2023-07-12] MEDS: Levofloxacin500mg IV 500 MG/100 ML BAG IV SCH (08:40)
[2023-07-12] MEDS: METOPROLOL XL 25 MG TAB PO SCH (08:41)
[2023-07-12] MEDS: MEMANTINE HCL 10 MG TABLET PO SCH ×2 (08:41→20:27)
--- NOTE | 2023-07-12 10:41 | RAD REPORT ---
EXAM DESCRIPTION: RAD - Chest Single View - 07/12/2023 10:04 am CLINICAL HISTORY: pneumonia COMPARISON: Chest Pa And Lat (2 Views) dated 07/10/2023; Chest Single View dated 07/08/2023; Chest Sin gle View dated 04/25/2022; Chest Pa And Lat (2 Views) dated 06/05/2021 FINDINGS: Lines: None. Lungs: Bilateral airspace disease, left greater than right may be marginally better on the left side compared with prior. The lung volumes are decreased. Pleural: No significant pleural effusions or pneumothorax. Cardiac: The heart size is within normal limits. Mediastinum: Within normal limits. Bones: No acute fractures. Other: None IMPRESSION: Decreased lung volumes compared with prior which limits comparison. Similar to minimally improved airspace opacities in the left lung. Right-sided airspace disease is similar.
[2023-07-12] MEDS: DONEPEZIL HCL 5 MG TAB PO SCH (20:26)
[2023-07-12] MEDS: FAMOTIDINE 20 MG TAB PO SCH (20:27)
[2023-07-12] MEDS: ATORVASTATIN 20 MG TAB PO SCH (20:27)
[2023-07-12] MEDS: MIRTAZAPINE 15 MG TAB PO SCH (21:02)
[2023-07-13 06:38] LABS: Absolute Lymphocytes (CBC) 1.2 K/uL (0.7-4.9); Hematocrit 34.1 % (39.6-49.0); Lymphocytes % 12.3 % (15.3-44.8); MCV 87.6 fL (80-100); MPV 7.7 fL (7.6-11.3); Platelets 288 thou/uL (152-406); RBC Red Blood Cell Count 3.89 M/uL (4.33-5.43)
[2023-07-13 06:52] LABS: Magnesium 2.2 mg/dL (1.6-2.4); Potassium 3.7 mEq/L (3.5-5.1)
--- NOTE | 2023-07-13 07:12 | PN ---
Date of Progress Note: 07/12/2023 Subjective: Patient was seen this morning for followup. He was lying in bed, sleeping, but he did w loraine up, did not answer any questions. He was not in distress. was with him and she reports vel t the patient continues to have ongoing confusion and hallucination problem. He is eating fairly oka y as reports. He is able to get out of bed to go to the bathroom and tells me that she hel ps him. Objective: Vital Signs: Reviewed. HEENT: Unremarkable. Lungs: Clear to auscultation. Heart: Sounds normal. Abdomen: Soft. Bowel sounds normal. No guarding, rigidity, tenderness, distention. Extremities: No leg edema. Impression: 1.Pneumonia. 2.Hypertension. 3.Hyperlipidemia. 4.Diabetes mellitus. Plan: We will go ahead and continue current medications. Continue current antibiotics. The patient will not be able to return back home the way his current condition is as reports she will not b e able to handle him at home and he does have some generalized weakness. He will benefit from some s killed custodial stay for short time and his is willing to do that. We will request Social [facility] consultation to assist with discharge planning to go to shelter facility upon discharg e, which will happen this coming week. JANICE/MODL Voice ID: [id number] Report ID: [id number]
[2023-07-13] MEDS: Levofloxacin500mg IV 500 MG/100 ML BAG IV SCH (08:55)
[2023-07-13] MEDS: ENOXAPARIN 40 MG/0.4 ML SQ SCH ×2 (08:55→09:00)
[2023-07-13] MEDS: METOPROLOL XL 25 MG TAB PO SCH (08:56)
[2023-07-13] MEDS: CEFEPIME 1 GM in NA CHLORIDE 0.9% 100 ML IV SCH ×2 (08:56→20:44)
[2023-07-13] MEDS: lisinopriL 10 MG TAB PO SCH ×2 (08:57→20:47)
[2023-07-13] MEDS: MEMANTINE HCL 10 MG TABLET PO SCH ×2 (08:57→20:47)
[2023-07-13] MEDS: ENSURE HIGH PROTEIN 237 ML CAN PO SCH ×3 (08:58→20:49)
[2023-07-13 11:41] LABS: Blood Morphology Comment NOT SEEN (NOT SEEN); Platelet Estimate ADEQ
--- NOTE | 2023-07-13 17:11 | EKG ---
Test Date: 2023-07-08 Test Time: 18:17:13 Metal Stud Framer: POP MEASUREMENT RESULTS: Intervals: Rate: 127 OH: 148 QRSD: 66 QT: 300 QTc: 436 [place]: P: 49 OH: 148 QRS: 54 T: 36 INTERPRETIVE STATEMENTS: Sinus tachycardia Nonspecific ST abnormality Abnormal ECG Compared to ECG 04/05/2023 03:52:24 ST (T wave) deviation now present Sinus rhythm no longer present Electronically Signed On 07-13-23 16:57:28 ENT PHYSICIAN by Josh Bernstein
--- NOTE | 2023-07-13 20:03 | PN ---
Date of Progress Note: 07/13/2023 Subjective: The patient was seen this morning for followup. He was lying in bed, not in distress. was with him at bedside. The patient continues to have poor appetite, confusion and hallucinati ons. No new problems, complaints reported overnight. He does not sleep as well at nighttime. Objective: Vital Signs: Reviewed. HEENT: Unremarkable. Lungs: Bilateral good equal air entry. Presence of minimal rales noted in lung bases. Not using an y accessory muscles of respiration. Heart: Sounds normal. Abdomen: Soft. Bowel sounds normal. No guarding, rigidity, tenderness, distention. Extremities: No leg edema. Impression: 1.Pneumonia. 2.Hypertension. 3.Hyperlipidemia. 4.Diabetes mellitus. Plan: We will go ahead and continue current antibiotics. Physical Therapy to continue to work with the patient and Social Service is trying to help make arrangements for patient to go to skilled [place] facility of family's choice. I will see him tomorrow for followup. Details of plan and treatment discussed with the patient's . JANICE/MODL Voice ID: [id number] Report ID: [id number]
[2023-07-13] MEDS: DONEPEZIL HCL 5 MG TAB PO SCH (20:47)
[2023-07-13] MEDS: FAMOTIDINE 20 MG TAB PO SCH (20:47)
[2023-07-13] MEDS: MIRTAZAPINE 15 MG TAB PO SCH (20:48)
[2023-07-13] MEDS: ATORVASTATIN 20 MG TAB PO SCH (20:48)
[2023-07-14] MEDS: ENSURE HIGH PROTEIN 237 ML CAN PO SCH ×3 (08:57→21:21)
[2023-07-14] MEDS: METOPROLOL XL 25 MG TAB PO SCH (08:58)
[2023-07-14] MEDS: MEMANTINE HCL 10 MG TABLET PO SCH ×2 (08:59→21:18)
[2023-07-14] MEDS: lisinopriL 10 MG TAB PO SCH ×2 (08:59→21:19)
[2023-07-14] MEDS: CEFEPIME 1 GM in NA CHLORIDE 0.9% 100 ML IV SCH ×2 (09:00→21:17)
[2023-07-14] MEDS: ENOXAPARIN 40 MG/0.4 ML SQ SCH (09:00)
[2023-07-14] MEDS: Levofloxacin500mg IV 500 MG/100 ML BAG IV SCH (09:00)
[2023-07-14] MEDS: FAMOTIDINE 20 MG TAB PO SCH (21:18)
[2023-07-14] MEDS: ATORVASTATIN 20 MG TAB PO SCH (21:18)
[2023-07-14] MEDS: DONEPEZIL HCL 5 MG TAB PO SCH (21:18)
[2023-07-14] MEDS: MIRTAZAPINE 15 MG TAB PO SCH (21:19)
--- NOTE | 2023-07-14 21:24 | PN ---
Date of Progress Note: 07/14/2023 Subjective: The patient was seen this morning for followup. No new complaints or problems reported by the patient, lying in bed, not in distress. Vital signs reviewed. The patient's was present with him at bedside. He actually looked better today than last 2 to 3 days. Objective: HEENT: Unremarkable. Lungs: Bilateral good equal air entry. Clear to auscultation. No wheezing. No rales. Heart: Sounds normal. Abdomen: Soft. Bowel sounds normal. No guarding, rigidity, tenderness, distention. Extremities: No leg edema. Impression: 1.Pneumonia. 2.Acute respiratory failure with hypoxia. 3.Hypertension. 4.Type 2 diabetes mellitus. 5.Hyperlipidemia. Plan: We will go ahead and continue current medications. Continue antibiotics per order. Physical Therapy to continue to work with the patient. I will see him tomorrow for followup. Social Service is working on discharge planning. Once that is arranged, plan is to discharge him to go to skilled n ursing facility. JANICE/MODL Voice ID: [id number] Report ID: [id number]
[2023-07-15] MEDS: ENOXAPARIN 40 MG/0.4 ML SQ SCH (09:00)
[2023-07-15] MEDS: ENSURE HIGH PROTEIN 237 ML CAN PO SCH ×3 (09:44→20:53)
[2023-07-15] MEDS: METOPROLOL XL 25 MG TAB PO SCH (09:45)
[2023-07-15] MEDS: lisinopriL 10 MG TAB PO SCH ×2 (09:46→23:00)
[2023-07-15] MEDS: MEMANTINE HCL 10 MG TABLET PO SCH ×2 (09:47→20:52)
[2023-07-15] MEDS: CEFEPIME 1 GM in NA CHLORIDE 0.9% 100 ML IV SCH ×2 (09:47→20:53)
[2023-07-15] MEDS: Levofloxacin500mg IV 500 MG/100 ML BAG IV SCH (09:48)
--- NOTE | 2023-07-15 20:11 | PN ---
Date of Progress Note: 07/15/2023 Subjective: The patient was seen this morning for followup. No new complaints or problems reported by the patient's and she reports that yesterday and day before yesterday, the patient did ambula te with physical therapy better than before and she says that he ambulated twice outside in the hallw ay with Physical Therapy and with that, she is concerned that insurance may not approve for him to go to jail facility and we are still waiting on insurance company's decision regarding skill ed nursing facility. The patient's has informed me that it is getting difficult for her to hand le and take care of him at home and she was thinking possibly long-term placement in jail facility, but if insurance company does not approve it and if she has to pay out of pocket, then mora nciyue she will not be able to do so and she will have to take him home as she says. In that case, I did inform her that we can have home health and home physical therapy arranged for him as well as p ossibility of provider service that she can hire somebody to come for few hours to several hours a we ek on an as needed basis to help her. All these details were discussed with her today. Objective: Vital Signs: Reviewed. HEENT: Unremarkable. Lungs: Clear to auscultation. Heart: Sounds normal. Abdomen: Soft. Bowel sounds normal. No guarding, rigidity, tenderness, distention. Extremities: No leg edema. Assessment: 1.Hypertension. 2.Hyperlipidemia. 3.Type 2 diabetes mellitus. Plan: We will go ahead and continue current medications. Continue current antibiotics. Physical Th alonso to continue to work with the patient. The patient does not require any oxygen replacement anym ore and is maintaining adequate oxygenation on room air. As soon as the decision is made by insurance [employer], we will plan to discharge him. JANICE/MODL Voice ID: [id number] Report ID: [id number]
[2023-07-15] MEDS: MIRTAZAPINE 15 MG TAB PO SCH (20:50)
[2023-07-15] MEDS: DONEPEZIL HCL 5 MG TAB PO SCH (20:51)
[2023-07-15] MEDS: FAMOTIDINE 20 MG TAB PO SCH (20:51)
[2023-07-15] MEDS: ATORVASTATIN 20 MG TAB PO SCH (20:52)
[2023-07-16 07:26] LABS: Absolute Lymphocytes (CBC) 1.5 K/uL (0.7-4.9); Lymphocytes % 17.9 % (15.3-44.8); MCV 87.9 fL (80-100); MPV 6.9 fL (7.6-11.3); Platelets 385 thou/uL (152-406); RBC Red Blood Cell Count 3.98 M/uL (4.33-5.43)
[2023-07-16 07:46] LABS: Albumin 2.6 g/dL (3.4-5.0); Bilirubin Total 0.4 mg/dL (0.2-1.0); Magnesium 2.4 mg/dL (1.6-2.4); Potassium 4.3 mEq/L (3.5-5.1); Protein, Total 6.9 g/dL (6.4-8.2)
[2023-07-16] MEDS: CEFEPIME 1 GM in NA CHLORIDE 0.9% 100 ML IV SCH (09:25)
[2023-07-16] MEDS: lisinopriL 10 MG TAB PO SCH (09:26)
[2023-07-16] MEDS: MEMANTINE HCL 10 MG TABLET PO SCH (09:26)
[2023-07-16] MEDS: METOPROLOL XL 25 MG TAB PO SCH (09:26)
[2023-07-16] MEDS: Levofloxacin500mg IV 500 MG/100 ML BAG IV SCH (09:26)
[2023-07-16] MEDS: ENOXAPARIN 40 MG/0.4 ML SQ SCH (09:26)
--- NOTE | 2023-07-16 10:16 | RAD REPORT ---
EXAM DESCRIPTION: RAD - Chest Single View - 07/16/2023 6:36 am CLINICAL HISTORY: The patient is 83 years old and is Male; pneumonia TECHNIQUE: Single view of the chest. COMPARISON: No relevant prior studies available. FINDINGS: Lungs: Subsegmental atelectasis left lung base. No pulmonary vascular congestion or consolidation. Pleural space: Small left pleural effusion versus pleural thickening. No pneumothorax. Heart: Unremarkable. No cardiomegaly. Mediastinum: Unremarkable. Bones/joints: No acute fracture. IMPRESSION: 1. Subsegmental atelectasis left lung base. 2. Small left pleural effusion versus pleural thickening. Electronically signed by: Willow Phillips MD 07/16/2023 06:52 AM RESEARCH LABORATORY MANAGER Due to temporary technical issues with the PACS/Fluency reporting system, reports are being signed by the in house radiologist without review as a courtesy to ensure prompt reporting. The interpreting r adiologist is fully responsible for the content of the report.
[2023-07-16 10:38] VITALS: O2SAT 97
[2023-07-16 12:56] VITALS: BP 114/62; TEMP 98
--- NOTE | 2023-07-17 11:27 | DS ---
Date of Discharge: 07/16/2023 Disposition: Discharged to go to prison facility. Physical Examination: HEENT: Unremarkable. Lungs: Clear to auscultation. Heart: Sounds normal. Abdomen: Soft. Bowel sounds normal. No guarding, rigidity, tenderness, distention. Extremities: No leg edema. Discharge Instructions/medications: 1.Lumigan eyedrops 1 drop in both eyes daily at bedtime. 2.Levaquin 500 mg daily for 5 days. 3.Mirtazapine 7.5 mg daily at bedtime. 4.Famotidine 40 mg daily at bedtime. 5.Metoprolol succinate 25 mg daily in morning. 6.Donepezil 23 mg daily. 7.Memantine 10 mg 2 times a day. 8.Lisinopril 10 mg 2 times a day. 9.Atorvastatin 20 mg daily at bedtime. 10.Olanzapine 5 mg daily. 11.2 g sodium diet. 12.Consult PT and OT. 13.Fall precautions. Laboratory Data: Upon admission on 07/08/2023, white count 12.7, hemoglobin 13.1, platelets 204 and today last CBC white count 8.6, hemoglobin 11.9, platelets 385. His last chemistry today sodium 140, potassium 4.3, chloride 108, bicarb 30, BUN 24, creatinine 1.02, glucose 154. Liver function tests unremarkable. Sodium 134, potassium 4.5, chloride 104, bicarb 24, BUN 19, creatinine 1.29, glucose 2 11, lactic acid 2.1. Liver function tests unremarkable. Hospital Course: This is an 83-year-old very pleasant male patient, who was admitted to the hospital with pneumonia problem. Please see dictated H and P for more information. The patient was evaluate d in ER. He was admitted to the hospital with pneumonia and volume depletion. He was given IV antib iotics, IV fluid for correction of volume depletion. The patient had significant problem with halluc ination, confusion, and his appetite was not good for a while, but subsequently he showed improvement with his appetite. Confusion problem continues to be there, but overall he did improve in last coup le of days or so, started to participate with the physical therapy, started to ambulate. The patient 's informed me that she will not be able to take him back home with current condition and requ[facility]. Social Service was consulted and once all arrangements compl eted and after we obtained approval from insurance company today, he was able to go to [facility] facility in stable condition with above-mentioned medications and instructions. Final Diagnoses: 1.Pneumonia. 2.Volume depletion. 3.Anemia, unspecified. 4.Hypertension. 5.Hyperlipidemia. 6.Type 2 diabetes mellitus. 7.Alzheimer's disease. JANICE/MODL Voice ID: [id number] Report ID: [id number]
== END 2023-07-16 15:34 | DRG 193 ==
LOC: ER 17:53 → ERHOLD 19:30 → 2ND 20:42
PROVIDERS: ADMIT Internal Medicine; ATTEND Internal Medicine
DX: J18.9 Pneumonia, unspecified organism (principal); G92.9 Unspecified toxic encephalopathy; J96.01 Acute respiratory failure with hypoxia; I10 Essential (primary) hypertension; E11.9 Type 2 diabetes mellitus without complications; D64.9 Anemia, unspecified; E86.9 Volume depletion, unspecified; E78.00 Pure hypercholesterolemia, unspecified; N40.0 Benign prostatic hyperplasia without lower urinary tract symptoms; G30.9 Alzheimer's disease, unspecified; F02.80 Dementia in other diseases classified elsewhere, unspecified severity, without behavioral disturbance, psychotic disturbance, mood disturbance, and anxiety; Z88.5 Allergy status to narcotic agent; Z88.2 Allergy status to sulfonamides; Z88.1 Allergy status to other antibiotic agents; Z90.49 Acquired absence of other specified parts of digestive tract; Z79.899 Other long term (current) drug therapy
CPT/HCPCS: 36415; 70450; 71045; 71046; 80048; 80053; 81001; 81003; 83605; 83735; 83880; 84484; 85025; 85610; 85730; 87040; 87086; 87088; 93005; 97116; 97161; 97530; 99285; J0692; J1650; J2405; J7030; J7050

== ENCOUNTER 2023-11-25 10:56 | Observation (INO) | payer OTHER ==
--- OUTSIDE RECORDS SUMMARY | 2023-11-25 11:01 | XMS REPORT | Continuity of Care Document ---
Author Name Unknown Address [address] [facility] [address] th[address] Address [address] [facility] [address] [place] [address] Care Team Providers Care Director Of Field Sales Name Role Phone JOEL BROWNE Primary Care Physician Unavailab HUONG Weaver Attending Clinician Unavailable Doctor Unassigned, [place] Attending Clinician U IVELISSE Perdomo Admitting Clinician Unavailab henrique Payers Payer Name Policy Type Policy Number Effective Date Expirati on Date Source [employer] MA[employer]GED MEDICARE PPO-JORDANA [id number] 2020 00:00:00 Allergies, Adverse Reactions, Alerts Allergy Name Allergy Type Status Severity Reaction(s) Onset Date Inactive Date Treating Clinician Comments Source CODEINE DRUG INGREDI Active Unknown-Cmnt 02-11 00:00: 00 [facility] PENICILL INS Drug Class Active Unknown-Cmnt 8 00:00: 00 [facility] Codeine Propensi ty to adverse reaction s Active Unknown - See comments 02-11 00:00: 00 [facility] Penicill ins Propensi ty to adverse reaction s Active Unknown - See comments 02-11 00:00: 00 [facility] NO KNOWN ALLERGIE S Drug Class Active [facility] Social History Social Habit Start Date Stop Date Quantity Comments Source Sexual orientation U [facility] Exposure to SARS-CoV-2 (event) 2021-01-08 00:00:00 2021-02-07 14:48:00 Yes [facility] Sex Assigned At [birth year] 00:00:00 [facility] Smoking Status Start Date Stop Date Source Tobacco smoking consumption unknown [facility] Encounters Start Date/Time End Date/Time Encounter Type Admission Type Attending [facility] Care Facility Care Department Encounter ID Source 2023-07-17 00:00:00 2023-07-17 00:00:00 Outpatient R [facility] [id number] [facility] 2021-02-11 15:30:00 2021-02-11 15:30:00 Outpatient [facility] [id number] [facility] 2021-02-11 15:30:00 2021-02-11 15:30:00 Outpatient R HUONG DILL [facility] [id number] [facility] 2021-02-09 00:00:00 2021-02-09 00:00:00 Patient Secure Msg Doctor Unassigned, [place] [facility] [id number] [facility] 2021-02-07 14:00:00 2021-02-07 14:00:00 Outpatient R [facility] [id number] [facility]
--- NOTE | 2023-11-25 12:02 | RAD REPORT ---
EXAM DESCRIPTION: RADChest Single View11/25/2023 11:30 am CLINICAL HISTORY: altered mental status COMPARISON: Chest Single View dated 07/16/2023; Chest Single View dated 07/12/2023; Chest Pa And Lat ( 2 Views) dated 07/10/2023; Chest Single View dated 07/08/2023 TECHNIQUE: Portable AP view of the chest. FINDINGS: The lungs are clear. No pneumothorax or effusion. The cardiomediastinal contours are unre markable. IMPRESSION: No acute cardiopulmonary process.
--- NOTE | 2023-11-25 12:09 | RAD REPORT ---
EXAM DESCRIPTION: CT - Head Brain Wo Cont - 11/25/2023 11:24 am CLINICAL HISTORY: AMS COMPARISON: Head Brain Wo Cont dated 07/08/2023; Head Brain Wo Cont dated 04/05/2023 TECHNIQUE: Noncontrast head CT images were obtained without IV contrast. Multiplanar reformats were generated and reviewed. All CT scans are performed using dose optimization technique as appropriate and may include automated exposure control or mA/KV adjustment according to patient size. FINDINGS: No intracranial hemorrhage, mass, or edema. Midline structures are unremarkable. Stable ventricular caliber, with mild to moderate diffuse parenchymal volume loss. Echeverria-white matter differentiation is preserved, without evidence of acute infarct. No abnormal extra- axial fluid collections. Mastoid air cells and visualized portions of the paranasal sinuses are clear. No acute bony findings. IMPRESSION: No evidence of an acute intracranial process. Diffuse parenchymal volume loss, commensur ate with age, stable.
[2023-11-25] MEDS ORDERED: NA CHLORIDE 0.9% 500 ML ONE (12:30)
[2023-11-25 12:38] LABS: Absolute Eosinophils 0.1 K/uL (0-0.5); Absolute Lymphocytes (CBC) 1.4 K/uL (0.7-4.9); Absolute Monocytes 0.9 K/uL (0.1-1.3); Absolute Neutrophil 5.6 K/uL (1.8-8.0); Basophils % 0.4 % (0-1.3); Eosinophils % 0.8 % (0-4.4); Hematocrit 36.6 % (39.6-49.0); Lymphocytes % 17.3 % (15.3-44.8); MCH 28.8 pg (27.0-35.0); MCHC 32.6 g/dL (32.0-36.0); MCV 88.2 fL (80-100); MPV 8.1 fL (7.6-11.3); Monocytes % 10.7 % (3.3-12.3); Neutrophils % 70.8 % (41.7-73.7); Platelets 255 thou/uL (152-406); RBC Red Blood Cell Count 4.16 M/uL (4.33-5.43)
[2023-11-25 12:50] LABS: Albumin 3.3 g/dL (3.4-5.0); Anion Gap 7.1 mEq/L (5.0-15.0); Bilirubin Total 0.6 mg/dL (0.2-1.0); Globulin 3.3 g/dL (2.3-3.5); Potassium 4.1 mEq/L (3.5-5.1); Protein, Total 6.6 g/dL (6.4-8.2); Troponin High Sensitivity 6.7 pg/mL (<58.9)
[2023-11-25 14:23] LABS: Specific Gravity 1.013 (1.005-1.030); Urine Bilirubin NEGATIVE (Negative); Urine Blood Negative (Negative); Urine Clarity Clear (Clear); Urine Color Light-Yellow (Yellow); Urine Glucose NEGATIVE (Negative); Urine Ketones TRACE (Negative); Urine Microscopic Reflex YN NO UMIC; Urine Nitrite NEGATIVE (Negative); Urine Protein NEGATIVE (Negative); Urine Urobilinogen Normal (Normal); Urine pH 6.5 (5.0-7.0)
--- NOTE | 2023-11-25 14:54 | EDPHYS ---
Physician Documentation [facility] Name: Otto Murguia Age: 83 yrs Sex: Male : 1940 Arrival Date: 11/25/2023 Time: 10:56 Bed 15 Private MD: ED Physician Jose Luis Smith HPI: 11/24 15:26 This 83 yrs old Male presents to ER via EMS with complaints of Altered Mental Status. ms3 15:26 83-year-old male with past medical history of Alzheimer disease, dementia, glaucoma, ms3 hypercholesterolemia, hypertension presents to the emergency department via [facility] for altered mental status. [facility] nursing facility stated patient is more communicative than today. Today he is mumbling and not talking.. Historical: - Allergies: 11:23 Codeine; db 11:23 Sulfa (Sulfonamide Antibiotics); db - PMHx: 11:23 Alzheimer's disease; Dementia; Glaucoma; Hypercholesterolemia; Hypertensive disorder; db - Immunization history:: Adult Immunizations unknown. - Infectious Disease History:: Denies. - Social history:: Smoking status: Patient denies any tobacco usage or history of. ROS: 15:26 Unable to obtain ROS due to altered mental status, ms3 Exam: 14:23 ECG was reviewed by the Attending Physician. ms3 15:26 Head/Face: Normocephalic, atraumatic. Neck: Trachea midline, no cervical ms3 lymphadenopathy. Supple, full range of motion without nuchal rigidity, or vertebral point tenderness. No Meningismus. Chest/axilla: Normal chest wall appearance and motion. Nontender with no deformity. Cardiovascular: Regular rate and rhythm with a normal S1 and S2. No gallops, murmurs, or rubs. Normal PMI, no JVD. No pulse deficits. Respiratory: Lungs have equal breath sounds bilaterally, clear to auscultation and percussion. No rales, rhonchi or wheezes noted. No increased work of breathing, no retractions or nasal flaring. Abdomen/GI: Soft, non-tender, with normal bowel sounds. No distension or tympany. No guarding or rebound. No evidence of tenderness throughout. Skin: Warm, dry with normal turgor. Normal color with no rashes, no lesions, and no evidence of cellulitis. MS/ Extremity: Pulses equal, no cyanosis. Neurovascular intact. Full, normal range of motion. 15:26 Neuro: Orientation: Not oriented to person, place, time, situation, Mentation: sleepy, Vital Signs: 11:20 BP 115 / 60; Pulse 55; Resp 18; Temp 97.9(A); Pulse Ox 97% ; db 12:10 BP 109 / 51; Pulse 50; Resp 18; Pulse Ox 100% ; nj1 13:00 BP 123 / 58; Pulse 50; Resp 16; Pulse Ox 100% on R/A; nj1 14:00 BP 120 / 85; Pulse 47; Resp 15; Pulse Ox 100% on R/A; nj1 15:00 BP 120 / 98; Pulse 46; Resp 20; Pulse Ox 99% ; nj1 16:00 BP 132 / 63; Pulse 51; Resp 17; Pulse Ox 99% ; nj1 18:07 BP 132 / 67; Pulse 54; Resp 18; Temp 97.2(TE); Pulse Ox 97% on R/A; nj1 MDM: 11:08 Patient medically screened. ms3 15:26 Differential Diagnosis: CVA, electrolyte abnormality, hypoglycemia, New medication ms3 regimen. Data reviewed: vital signs, nurses notes, lab test result(s), EKG, radiologic studies, and as a result, I will admit patient. Consideration of Admission/Observation Patient was admitted/placed on observation. Management of patient was discussed with the following: Hospitalist: Dr. Kumar. I considered the following discharge prescriptions or medication management in the emergency department Medications were administered in the Emergency Department. See MAR. Independent interpretation of the following test(s) in the Emergency Department EKG: See my EKG interpretation above X-Ray: My interpretation is Chest x-ray image reviewed by me does not reveal pneumonia. Historians other than the Patient: EMS: [facility]. Counseling: I had a detailed discussion with the patient and/or guardian regarding the historical points, exam findings, and any diagnostic results supporting the discharge/admit diagnosis, lab results, radiology results, the need for further work-up and treatment in the hospital. ED course: Discussed with patient's family necessity for observation. They understand and agree with plan. All questions were answered. 11/24 11:10 Order name: CBC with Diff; Complete Time: 13:10 ms3 11/24 11:10 Order name: CMP; Complete Time: 13:10 ms3 11/24 11:10 Order name: Urinalysis w/ reflexes; Complete Time: 14:24 ms3 11/24 11:10 Order name: Troponin High Sensitivity; Complete Time: 13:10 ms3 11/24 14:53 Order name: Depakote la1 11/24 16:03 Order name: Basic Metabolic Panel EDMS 11/24 16:03 Order name: Basic Metabolic Panel EDMS 11/24 16:03 Order name: Basic Metabolic Panel EDMS 11/24 16:03 Order name: CBC with Automated Diff EDMS 11/24 16:03 Order name: CBC with Automated Diff EDMS 11/24 16:03 Order name: CBC with Automated Diff EDMS 11/24 11:10 Order name: CXR XRAY; Complete Time: 13:10 ms3 11/24 11:10 Order name: CT Head Brain wo Cont; Complete Time: 13:10 ms3 11/24 11:10 Order name: EKG; Complete Time: 11:10 ms3 11/24 11:10 Order name: EKG - Nurse/Tech; Complete Time: 12:27 ms3 11/24 13:32 Order name: Straight Cath; Complete Time: 13:51 ms3 EC:23 Rate is 49 beats/min. Rhythm is regular. QRS [place] is Normal. [place] interval is normal. QRS ms3 interval is normal. QT interval is normal. Clinical impression: Sinus bradycardia. Interpreted by me. Reviewed by me. Administered Medications: 12:37 Drug: Sodium Chloride 0.9% IVPB 500 ml IVPB once Route: IVPB; Site: right antecubital; nj1 Disposition: 15:30 Chart complete. ms3 Disposition Summary: 11/25/23 14:53 Hospitalization Ordered Notes: Hospitalization Status: Observation ms3 Provider: Vince Kumar ms3 Location: Telemetry/MedSurg (observation) ms3 Condition: Stable ms3 Problem: new ms3 Symptoms: are unchanged ms3 Bed/Room Type: Standard ms3 Room Assignment: 212(11/25/23 17:54) bd Diagnosis - Altered mental status, unspecified ms3 - Anemia, unspecified ms3 Forms: - Medication Reconciliation Form ms3 - SBAR form ms3 - Leadership Thank You Letter ms3 Signatures: Dispatcher [employer] EDMS Dirrim, Jose Luis Caceres DO DO ms3 Lara Ozuna, RN RN db Vinita Raymond, RN RN nj1 Corrections: (The following items were deleted from the chart) 1453 14:53 VALPROIC ACID (DEPAKOTE)+COLLIN ordered. EDMS EDMS 17:54 14:53 ms3 bd
--- NOTE | 2023-11-25 14:54 | ER ---
Nurse's Notes [facility] Name: Otto Murguia Age: 83 yrs Sex: Male : 1940 Arrival Date: 11/25/2023 Time: 10:56 Bed 15 Private MD: Diagnosis: Altered mental status, unspecified;Anemia, unspecified Presentation: 11/24 11:20 Chief complaint: EMS states: ALTERED MENTAL STATUS PER [facility]. FROM [facility]. PT db ACTING DIFFERENT THAN NORMAL PER [place]. Coronavirus screen: Client denies travel out of the [place] in the last 14 days. At this time, the client does not indicate any symptoms associated with coronavirus-19. Ebola Screen: Patient negative for fever greater than or equal to 101.5 degrees Fahrenheit, and additional compatible Ebola Virus Disease symptoms Patient denies exposure to infectious person. Patient denies travel to an Ebola-affected area in the 21 days before illness onset. No symptoms or risks identified at this time. Initial Sepsis Screen: Does the patient meet any 2 criteria? No. Patient's initial sepsis screen is negative. Does the patient have a suspected source of infection? No. Patient's initial sepsis screen is negative. Risk Assessment: Do you want to hurt yourself or someone else? Patient reports no desire to harm self or others. Onset of symptoms was November 25, 2023. Care prior to arrival: IV initiated. 22 GA, in the left antecubital area, Glucose check: 115. 11:20 Method Of Arrival: EMS: [facility] db 11:20 Acuity: GARRETT 2 db Triage Assessment: 11:23 General: Appears in no apparent distress. comfortable, Behavior is calm, cooperative. db Pain: Denies pain. Neuro:. Historical: - Allergies: 11:23 Codeine; db 11:23 Sulfa (Sulfonamide Antibiotics); db - PMHx: 11:23 Alzheimer's disease; Dementia; Glaucoma; Hypercholesterolemia; Hypertensive disorder; db - Immunization history:: Adult Immunizations unknown. - Infectious Disease History:: Denies. - Social history:: Smoking status: Patient denies any tobacco usage or history of. Screenin:[address] [facility] ED Fall Risk Assessment (Adult) History of falling in the last 3 months, nj1 including since admission Yes- fall prone (multiple falls) (3 pts) Confusion or Disorientation Yes (5 pts) Intoxicated or Sedated No (0 pts) Impaired Gait Yes (1 pt) Mobility Assist Device Used No (0 pt) Altered Elimination Yes (1 pt) Score/Fall Risk Level 3 or more points = High Risk Oriented to surroundings, Maintained a safe environment, Educated pt \T\ family on fall prevention, incl call for assistance when getting out of bed, Assessed \T\ reinforced patient's understanding of fall precautions, Hourly rounding (assess needs \T\ fall precautionary measures) done, Used ambulatory aids as needed (educated on \T\ assisted with), Remained w/in arm's length of patient and in sight while toileting, Utilized family, sitter, or virtual semiconductor testing group leader as indicated. 12:48 Abuse screen: Denies threats or abuse. Denies injuries from another. Nutritional nj1 screening: No deficits noted. Tuberculosis screening: No symptoms or risk factors identified. Assessment: 12:20 General: Appears in no apparent distress. Behavior is calm, non verbal. nj1 12:20 Pain: Denies pain. Neuro: Level of Consciousness is awake, confused, Oriented to unable [facility] to assess, has only responded if in pain.. Moves all extremities. Speech makes noises, incomprehensible noises. Pupils are pinpoint. Cardiovascular: Patient's skin is warm and dry. Respiratory: Airway is patent Respiratory effort is even, unlabored. 13:00 Reassessment: Patient appears in no apparent distress at this time. Patient and/or nj1 family updated on plan of care and expected duration. Pain level reassessed. 14:03 Reassessment: Patient appears in no apparent distress at this time. Patient and/or db family updated on plan of care and expected duration. Pain level reassessed. PT BRIEF CHANGED AND CREAM APPLIED TO LEFT INNER THIGH. NOTED RASH. General: Appears in no apparent distress. Neuro: Level of Consciousness is awake. 15:00 Reassessment: Patient appears in no apparent distress at this time. No changes from ar1 previously documented assessment. 16:00 Reassessment: Patient appears in no apparent distress at this time. No changes from nj1 previously documented assessment. 18:08 Reassessment: Patient appears in no apparent distress at this time. Neuro: Level of ar1 Consciousness is awake, alert, confused. Vital Signs: 11:20 BP 115 / 60; Pulse 55; Resp 18; Temp 97.9(A); Pulse Ox 97% ; db 12:10 BP 109 / 51; Pulse 50; Resp 18; Pulse Ox 100% ; nj1 13:00 BP 123 / 58; Pulse 50; Resp 16; Pulse Ox 100% on R/A; nj1 14:00 BP 120 / 85; Pulse 47; Resp 15; Pulse Ox 100% on R/A; nj1 15:00 BP 120 / 98; Pulse 46; Resp 20; Pulse Ox 99% ; nj1 16:00 BP 132 / 63; Pulse 51; Resp 17; Pulse Ox 99% ; nj1 18:07 BP 132 / 67; Pulse 54; Resp 18; Temp 97.2(TE); Pulse Ox 97% on R/A; nj1 ED Course: 11:06 Patient arrived in ED. bd 11:08 Jose Luis Smith DO is Attending Physician. ms3 11:[address] via stretcher. db 11:23 Triage completed. db 11:23 Arm band placed on Patient placed in an exam room. db 11:26 CT Head Brain wo Cont In Process Unspecified. EDMS 11:32 CXR XRAY In Process Unspecified. EDMS 11:58 Vinita Raymond, RN is Primary Nurse. nj1 12:22 Initial lab(s) drawn, by me, sent to lab. Inserted saline lock: 22 gauge in right db antecubital area, using aseptic technique. Blood collected. 12:27 EKG done, by ED staff, reviewed by Jose Luis Smith DO. nj1 12:28 Client placed on continuous cardiac and pulse oximetry monitoring. NIBP monitoring nj1 applied. manager monitoring on. 12:48 Patient has correct armband on for positive identification. Bed in low position. Call nj1 light in reach. Side rails up X 1. Adult w/ patient. Provided Education on: call light, fall precautions . 14:03 Urine collected: straight cath specimen, Amount Returned: 550mL. Straight cath db inserted, using sterile technique, 14 Fr. Specimen obtained. Returned clear yellow urine. Patient tolerated well. 14:52 Vince Kumar MD is Hospitalizing Provider. ms3 Administered Medications: 12:37 Drug: Sodium Chloride 0.9% IVPB 500 ml IVPB once Route: IVPB; Site: right antecubital; nj1 Outcome: 14:53 Decision to Hospitalize by Provider. ms3 18:37 Patient left the ED. iw Signatures: Dispatcher [employer] EDMS Brittany Schumacher Irene, RN RN iw Jose Luis Smith DO DO ms3 Lara Ozuna RN RN db Vinita Raymond RN RN nj1 Corrections: (The following items were deleted from the chart) 14:59 14:03 Reassessment: Patient appears in no apparent distress at this time. Patient db and/or family updated on plan of care and expected duration. Pain level reassessed. db
--- NOTE | 2023-11-25 16:10 | P.HP ---
Certification for Inpatient Patient admitted to: Observation With expected LOS: <2 Midnights Patient will require the following post-hospital care: None Practitioner: I am a practitioner with admitting privileges, knowledge of patient current condition, hospital course, and medical plan of care. Services: Services provided to patient in accordance with Admission requirements found in Title 42 Section 412.3 of the Code of Federal Regulations Patient History Date of Service: 11/25/23 Reason for admission: AMS History of Present Illness: 83-year-old male with history of Alzheimer's dementia, [id number] diabetes, hypertension, hyperlipidemia presents to the emergency department chief complaint of altered mental status. His family is at bedside reports that he is currently at [facility] in their memory care unit, he is typically ambulatory, converses freely with staff although confused and eats independently. This morning they noted he had difficulty walking, did not eat anything and just laid his head on the table and was not talking to anybody which is very different from his baseline. He was referred to the emergency department for evaluation. He was evaluated in the emergency department his labs were unremarkable, CT head negative for acute findings and chest x-ray also unremarkable UA not suggestive of urinary tract infection. Upon further questioning family informed me that his medications have been recently adjusted, he was previously on olanzapine 10 mg at bedtime, on 10/13 the dose was increased to 15 mg and on 11/08 his dose was increased to 20 mg of olanzapine at bedtime. Also he was started on Depakote 125 mg twice daily which was given for the first time yesterday 11/24 at 1600. His altered mentation is likely related to these medication adjustments made given the significant change in his mental status he will be observed overnight. Allergies codeine Allergy (Verified 03/04/17 00:27) Itching/Hives/Rash Sulfa (Sulfonamide Antibiotics) Allergy (Verified 07/09/23 00:58) Itching/Hives/Rash Home Medications: Atorvastatin Calcium 1 tab PO BEDTIME 02/15/21 Bimatoprost [Lumigan Opthalmic Drops*] 1 drop OPTH BEDTIME 02/15/21 Lisinopril [Zestril] 1 tab PO BID 02/15/21 Memantine HCl [Namenda] 10 mg PO BID 02/15/21 Metoprolol Succinate [Toprol Xl] 25 mg PO DAILY 02/15/21 Donepezil HCl 23 mg PO DAILY 07/08/23 Famotidine 40 mg PO DAILY 07/08/23 Mirtazapine 7.5 mg PO BEDTIME 07/08/23 OLANZapine [Olanzapine] 5 mg PO SEECOM 07/08/23 - Past Medical/Surgical History Diabetic: Yes -: diet controlled diabetes -: glaucoma -: macular degeneration -: Hypertension -: Hyperlipidemia -: Alzheimer's dementia -: minh cataract sx -: R wrist -: 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 moist/pink Neck: Supple, 2+ carotid pulse no bruit, No LAD Respiratory: Clear to auscultation bilaterally, Normal air movement Cardiovascular: Regular rate/rhythm, Normal S1 S2 Gastrointestinal: Normal bowel sounds, No tenderness Musculoskeletal: No tenderness Integumentary: No rashes Neurological: Other (Dementia, drowsy, moving all extremities) - Studies Laboratory Data (last 24 hrs) 11/25/23 11/25/23 12:18 12:18 WBC 8.00 Hgb 12.0 L Hct 36.6 L Plt Count 255 Sodium 141 Potassium 4.1 BUN 19 H Creatinine 1.08 Glucose 105 Total Bilirubin 0.6 AST 18 ALT 22 Alkaline Phosphatase 92 Assessment and Plan - Plan Assessment: Metabolic encephalopathy secondary to medication adjustments Alzheimer's dementia Hypertension GERD Plan: Metabolic encephalopathy secondary to medication adjustments Alzheimer's dementia Olanzapine titrated up on 11/08 from 15 mg to 20 mg Started on Depakote 125 mg twice daily on 11/23 with first dose at 1600 Also taking hydroxyzine 50 mg every 4 hours as needed Suspect his depressed mental status is related to these medications Will hold medications overnight providing medications only as needed and give gentle IV fluids Reassess mentation in the morning as well as labs No infectious findings on labs, UA, chest x-ray and CT head unremarkable Discussed plan with family who are amenable Hypertension GERD Continue home medications when tolerating p.o. DVT PPX: Lovenox Code status: Full Discharge Plan: Jail Plan to discharge in: 48 Hours - Advance Directives Does patient have a Living Will: No Does patient have a Durable POA for Healthcare: No - Code Status/Comfort Care Code Status Assessed: Yes (DNR) Critical Care: No Time Spent Managing Pts Care (In Minutes): 70
[2023-11-25] MEDS: MIRTAZAPINE 15 MG TAB PO SCH (21:00)
[2023-11-25] MEDS: NA CHLORIDE 0.9% 1,000 ML IV SCH (21:32)
[2023-11-25] MEDS: ENOXAPARIN 40 MG/0.4 ML SQ SCH (21:32)
[2023-11-25 23:16] VITALS: O2SAT 96; BMI 23.0
[2023-11-25] MEDS ORDERED: WATER FOR INJ,STERILE 10 ML IM PRN (23:29)
[2023-11-25] MEDS: ZIPRASIDONE MESYLA 20 MG/VIAL IM ONE (23:34)
[2023-11-26] MEDS: LORazepam 2 MG/ML VIAL IV ONE (00:41)
[2023-11-26 06:08] LABS: Absolute Eosinophils 0.1 K/uL (0-0.5); Absolute Lymphocytes (CBC) 1.1 K/uL (0.7-4.9); Absolute Monocytes 0.9 K/uL (0.1-1.3); Absolute Neutrophil 4.9 K/uL (1.8-8.0); Basophils % 0.7 % (0-1.3); Eosinophils % 0.8 % (0-4.4); Hematocrit 35.2 % (39.6-49.0); Hemoglobin 12.2 g/dL (13.6-17.9); Lymphocytes % 16.2 % (15.3-44.8); MCH 30.2 pg (27.0-35.0); MCHC 34.5 g/dL (32.0-36.0); MCV 87.5 fL (80-100); Monocytes % 12.2 % (3.3-12.3); Neutrophils % 70.1 % (41.7-73.7); Nucleated Red Blood Cells % 0.1 % (0-0); Platelets 233 thou/uL (152-406); RBC Red Blood Cell Count 4.03 M/uL (4.33-5.43); Red Cell Distribution Width 13.9 % (12.1-15.2)
[2023-11-26 06:18] LABS: Anion Gap 5.7 mEq/L (5.0-15.0); Potassium 3.7 mEq/L (3.5-5.1)
[2023-11-26] MEDS: KCL 20 MEQ/100 mL IVPB 20 MEQ/100 ML BAG IV SCH (06:40)
--- NOTE | 2023-11-26 15:11 | P.DS ---
Admission Date: 11/25/23 Discharge Date: 11/26/23 Disposition: ROUTINE DISCHARGE Discharge Condition: FAIR Reason for Admission: AMS Brief History of Present Illness: 83-year-old male with history of Alzheimer's dementia, jlk-gjyyquc-jqqlmewep diabetes, hypertension, hyperlipidemia presents to the emergency department chief complaint of altered mental status. His family is at bedside reports that he is currently at [facility] in their memory care unit, he is typically ambulatory, converses freely with staff although confused and eats independently. This morning they noted he had difficulty walking, did not eat anything and just laid his head on the table and was not talking to anybody which is very different from his baseline. He was referred to the emergency department for evaluation. He was evaluated in the emergency department his labs were unremarkable, CT head negative for acute findings and chest x-ray also unremarkable UA not suggestive of urinary tract infection. Upon further questioning family informed me that his medications have been recently adjusted, he was previously on olanzapine 10 mg at bedtime, on 10/13 the dose was increased to 15 mg and on 11/08 his dose was increased to 20 mg of olanzapine at bedtime. Also he was started on Depakote 125 mg twice daily which was given for the first time yesterday 11/24 at 1600. His altered mentation is likely related to these medication adjustments made giv en the significant change in his mental status he will be observed overnight. Hospital Course: Assessment: Metabolic encephalopathy secondary to medication adjustments Alzheimer's dementia Hypertension GERD Patient was admitted to the hospital under observation for AMS. He had recently had his medications adjusted including addition of Depakote, the following day he was found to be more drowsy/lethargic. He was brought to the emergency department for evaluation, his labs are unremarkable he has remained afebrile CT head was negative for acute findings, chest x-ray did not show pneumonia and UA did not show urinary tract infection. It is believed that the change in his mentation was related to the titration of his medications/addition of Depakote. He is stable for discharge back to memory care unit and further titration of his medications will need to take place there. Vital Signs/Physical Exam: Temp Pulse Resp BP Pulse Ox 97.7 F 52 16 160/71 H 95 11/26/23 12:00 11/26/23 12:11/26/23 12:11/26/23 12:24 12:00 General: Alert, In no apparent distress, Demented, Confused HEENT: Atraumatic, PERRLA Neck: Supple, JVD not distended Respiratory: Clear to auscultation bilaterally, Normal air movement Cardiovascular: Regular rate/rhythm, Normal S1 S2 Gastrointestinal: Normal bowel sounds, No tenderness Musculoskeletal: No tenderness Integumentary: No rashes Neurological: Normal strength at 5/5 x4 extr Laboratory Data at Discharge: WBC 7.00 thou/uL (4.3-10.9) 11/26/23 05:46 Hgb 12.2 g/dL (13.6-17.9) L 11/26/23 05:46 Hct 35.2 % (39.6-49.0) L 11/26/23 05:46 Plt Count 233 thou/uL (152-406) 11/26/23 05:46 Sodium 142 mEq/L (136-145) 11/26/23 05:46 Potassium 3.7 mEq/L (3.5-5.1) 11/26/23 05:46 BUN 14 mg/dL (7-18) 11/26/23 05:46 Creatinine 0.89 mg/dL (0.70-1.30) 11/26/23 05:46 Glucose 88 mg/dL (74-106) 11/26/23 05:46 Total Bilirubin 0.6 mg/dL (0.2-1.0) 11/25/23 12:18 AST 18 U/L (15-37) 11/25/23 12:18 ALT 22 U/L (16-61) 11/25/23 12:18 Alkaline Phosphatase 92 U/L (45-117) 11/25/23 12:18 Home Medications: Bimatoprost [Lumigan Opthalmic Drops*] 1 drop OPTH BEDTIME 02/15/21 Lisinopril [Zestril] 1 tab PO BID 02/15/21 Metoprolol Succinate [Toprol Xl*] 25 mg PO DAILY 02/15/21 Famotidine 40 mg PO DAILY 07/08/23 Acetaminophen 2 tab PO Q6H 11/25/23 Cyanocobalamin (Vitamin B-12) [Vitamin B-12] 1,000 mcg PO DAILY 11/25/23 Mirtazapine [Remeron*] 15 mg PO BEDTIME 11/25/23 OLANZapine [Olanzapine] 20 mg PO BEDTIME 11/25/23 Vit C/E/Zn/Coppr/Lutein/Zeaxan [Preservision Areds 2 Softgel] 1 cap PO BID 11/25/23 Zinc Gluconate [Zinc] 30 mg PO DAILY 11/25/23 hydrOXYzine pamoate [Hydroxyzine Pamoate] 50 mg PO Q4H 11/25/23 Physician Discharge Instructions: Patient was admitted to the hospital under observation for AMS. He had recently had his medications adjusted including addition of Depakote, the following day he was found to be more drowsy/lethargic. He was brought to the emergency department for evaluation, his labs are unremarkable he has remained afebrile CT head was negative for acute findings, chest x-ray did not show pneumonia and UA did not show urinary tract infection. It is believed that the change in his mentation was related to the titration of his medications/addition of Depakote. He is stable for discharge back to memory care unit and further titration of his medications will need to take place there. Diet: NH diet Activity: Fall precautions Followup: Chris Parra MD [Primary Care Provider] - Time spent managing pt's care (in minutes): 35
[2023-11-26] MEDS: HALOPERIDOL LACT 5 MG/ML INJ IV ONE (16:02)
[2023-11-26 16:42] VITALS: BP 163/68; TEMP 97.5
--- NOTE | 2023-11-28 11:52 | EKG ---
Test Date: 2023-11-25 Test Time: 12:22:[address]: MARCO ANTONIO MEASUREMENT RESULTS: Intervals: Rate: 49 MA: 200 QRSD: 62 QT: 428 QTc: 386 [place]: P: 82 MA: 200 QRS: 71 T: 36 INTERPRETIVE STATEMENTS: Sinus bradycardia Otherwise normal ECG Compared to ECG 07/08/2023 18:17:13 Sinus tachycardia no longer present ST (T wave) deviation no longer present Electronically Signed On 11-28-23 11:49:35 CDT by Anthony Mayberry
== END 2023-11-26 17:34 ==
LOC: ER 10:56 → ERHOLD 15:59 → 2ND 18:06
PROVIDERS: ADMIT Hospitalist; ATTEND Hospitalist
DX: G92.8 Other toxic encephalopathy (principal); R41.82 Altered mental status, unspecified; G30.9 Alzheimer's disease, unspecified; F02.80 Dementia in other diseases classified elsewhere, unspecified severity, without behavioral disturbance, psychotic disturbance, mood disturbance, and anxiety; K21.9 Gastro-esophageal reflux disease without esophagitis; E11.9 Type 2 diabetes mellitus without complications; I10 Essential (primary) hypertension; E78.5 Hyperlipidemia, unspecified; Z88.5 Allergy status to narcotic agent; Z88.2 Allergy status to sulfonamides
CPT/HCPCS: 93005; 85025 ×2; 80048; 36415; 80164; 81003; 84484; 80053; 70450; 71045; 51702; 96374; 99285; J3480; J1630; J1650 ×2; J3486; J7040; J7030 ×2; G0378 ×4